=== PATIENT | female | born 1940 | race Caucasian/White ===

== ENCOUNTER 2016-07-11 05:15 | Emergency (ER) | payer MEDICARE ==
[~2016-07-11] VITALS: Ht 147.3 cm; Wt 33.0 kg
[~2016-07-11 05:15] MED LIST: DIGO0.25 PO; HYDR-3533 PO; HYDR12.56 PO; LEVO.1 PO; Lortab; OXYB5TAB10 PO; VIST25CA PO
[2016-07-11 05:19] VITALS: BP 180/79; PULSE 137; RESP 20; TEMP 97.5; O2SAT 99
[2016-07-11 06:03] LABS: AUTOMATED NEUTROPHIL # 4.4 TH/MM3 (1.8-7.7); BASOPHIL # 0.1 TH/MM3 (0-0.2); BASOPHIL % 1.7 % (0.0-2.0); EOSINOPHIL # 0.7 TH/MM3 (0-0.4); EOSINOPHIL % 9.2 % (0.0-4.0); HEMATOCRIT 38.8 % (35.0-46.0); LYMPH % 16.9 % (9.0-44.0); LYMPHOCYTE # 1.3 TH/MM3 (1.0-4.8); MEAN CELL VOLUME 90.6 FL (80.0-100.0); MEAN CORPUSCULAR HEMOGLOBIN 30.5 PG (27.0-34.0); MEAN CORPUSCULAR HGB CONC 33.7 % (32.0-36.0); MONO % 15.9 % (0.0-8.0); NEUT % 56.3 % (16.0-70.0); PLATELET COUNT 433 TH/MM3 (150-450); RED BLOOD COUNT 4.28 MIL/MM3 (4.00-5.30); RED CELL DISTRIBUTION WIDTH 15.9 % (11.6-17.2); WHITE BLOOD COUNT 7.9 TH/MM3 (4.0-11.0)
[2016-07-11 06:05] LABS: HEMO FLAGS AUTO DIFF
[2016-07-11 06:12] LABS: APTT (PATIENT) 25.8 SEC (24.3-30.1); PROTHROMBIN TIME - PATIENT 10.5 SEC (9.8-11.6)
[2016-07-11] MEDS ORDERED: EDOX1TAB2 PO (06:12)
[2016-07-11] MEDS ORDERED: CARV3.125 PO (06:12)
[2016-07-11] MEDS ORDERED: ACETAMINOPHEN/HYDROcodone 325 MG/5 MG TAB PO ONE (06:15)
[2016-07-11 06:18] LABS: BICARBONATE 28.5 MEQ/L (21.0-32.0)
--- NOTE | 2016-07-11 06:20 | PD ---
HPI Chief Complaint: Pain: Acute or Chronic Time Seen by Provider: 05:28 Travel History International Travel<30 days: No Contact w/Intl Traveler<30days: No Traveled to known affect area: No History of Present Illness HPI 76yo F with PMH of bladder CA presents to the ED with c/o bilateral leg pain s/ p scratching them today. Pt has dried skin and it was itchy and she woke up and scratched it and now it is hurting her. She states she has had this before. Pt states she is always sob. Denies any chest pain, fever, n/v, abdominal pain, focal weakness or numbness. PFSH Past Medical History Arthritis: Yes Autoimmune Disease: No Anxiety: Yes Depression: Yes Heart Rhythm Problems: Yes Cancer: Yes (SKIN, bladder, ) Cardiovascular Problems: Yes (AFIB) High Cholesterol: Yes Chemotherapy: No Chest Pain: No Congestive Heart Failure: No Cerebrovascular Accident: No Diabetes: No Diminished Hearing: No Endocrine: Yes Gastrointestinal Disorders: Yes (HX OBSTR.) GERD: No Genitourinary: Yes (HEMATURIA (DENIES CANCER)) Headaches: Yes Hepatitis: No Hiatal Hernia: No Hypertension: Yes Immune Disorder: No Musculoskeletal: Yes (ARTHRITIS) Neurologic: Yes (LEFT FOOT DROP (ANKLE NERVE DAMAGE)) Psychiatric: Yes (ANXIETY) Reproductive: No Respiratory: No Migraines: No Radiation Therapy: No Seizures: No Thyroid Disease: Yes Ulcer: No ?: Not Menopausal: Yes Past Surgical History Abdominal Surgery: Yes (SPLENECTOMY) AICD: No Cardiac Surgery: No Ear Surgery: No Endocrine Surgery: No Eye Surgery: Yes (MICHELLE. 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) Reported Meds & Prescriptions Reported Meds & Active Scripts Active Tylenol-Codeine #3 (Acetaminophen-Codeine) 300-30 mg Tab 1 Tab PO Q6HR PRN Reported Savaysa (Edoxaban) 30 Mg Tab 30 Mg PO DAILY Coreg (Carvedilol) 3.125 Mg Tab 3.125 Mg PO BID Digoxin 0.25 Mg Tab 0.25 Mg PO DAILY Synthroid (Levothyroxine Sodium) 100 Mcg Tab 100 Mcg PO DAILY Lortab (Hydrocodone-Acetaminophen) 5-325 Mg Tab 1 Tab PO Q6H PRN Ditropan (Oxybutynin Chloride) 5 Mg Tab 5 Mg PO BID Review of Systems Except as stated in HPI: all other systems reviewed are Neg Physical Exam Narrative GENERAL: 76yo F flail elderly female. SKIN: Warm and dry. HEAD: Atraumatic. Normocephalic. EYES: Pupils equal and round. No scleral icterus. No injection or drainage. ENT: No nasal bleeding or discharge. Mucous membranes pink and moist. NECK: Trachea midline. No JVD. CARDIOVASCULAR: Afib fluctuating from 90s-130s. No murmur appreciated. RESPIRATORY: No accessory muscle use. Clear to auscultation. Breath sounds equal bilaterally. GASTROINTESTINAL: Abdomen soft, non-tender, nondistended. MUSCULOSKELETAL: Bilateral tib/fib. +Scaling rash that looks like lichenified eczema with excoriation. DP 2+ bilaterally. +TTP. NEUROLOGICAL: Awake and alert. No obvious cranial nerve deficits. Motor grossly within normal limits. Normal speech. Data Data Last Documented VS Vital Signs Date Time Temp Pulse Resp B/P Pulse Ox O2 Delivery O2 Flow Rate FiO2 07/11/16 12:22 97.8 81 17 132/71 98 07/11/16 10:29 Room Air Orders Electrocardiogram (07/11/16 ) Complete Blood Count With Diff (07/11/16 05:37) Basic Metabolic Panel (Bmp) (07/11/16 05:37) Prothrombin Time / Inr (Pt) (07/11/16 05:37) Act Partial Throm Time (Ptt) (07/11/16 05:37) Chest, Single Ap (07/11/16 ) Acetamin-Hydrocod 325-5 Mg (Sims 5-325 (07/11/16 06:15) Digoxin (07/11/16 07:12) Thyroid Stimulating Hormone (07/11/16 07:13) Diltiazem Inj (Cardizem Inj) (07/11/16 07:15) Morphine Inj (Morphine Inj) (07/11/16 07:15) Labs Laboratory Tests Test 07/11/16 07/11/16 07/11/16 05:30 07:40 11:24 White Blood Count 7.9 TH/MM3 Red Blood Count 4.28 MIL/MM3 Hemoglobin 13.1 GM/DL Hematocrit 38.8 % Mean Corpuscular Volume 90.6 FL Mean Corpuscular Hemoglobin 30.5 PG Mean Corpuscular Hemoglobin 33.7 % Concent Red Cell Distribution Width 15.9 % Platelet Count 433 TH/MM3 Mean Platelet Volume 7.7 FL Neutrophils (%) (Auto) 56.3 % Lymphocytes (%) (Auto) 16.9 % Monocytes (%) (Auto) 15.9 % Eosinophils (%) (Auto) 9.2 % Basophils (%) (Auto) 1.7 % Neutrophils # (Auto) 4.4 TH/MM3 Lymphocytes # (Auto) 1.3 TH/MM3 Monocytes # (Auto) 1.3 TH/MM3 Eosinophils # (Auto) 0.7 TH/MM3 Basophils # (Auto) 0.1 TH/MM3 CBC Comment AUTO DIFF Differential Total Cells 100 Counted Neutrophils % (Manual) 56 % Band Neutrophils % 2 % Lymphocytes % 22 % Monocytes % 11 % Eosinophils % 8 % Basophils % 1 % Neutrophils # (Manual) 4.6 TH/MM3 Differential Comment FINAL DIFF MANUAL Platelet Estimate NORMAL Platelet Morphology Comment NORMAL Red Cell Morphology Comment NORMAL Prothrombin Time 10.5 SEC Prothromb Time International 1.0 RATIO Ratio Activated Partial 25.8 SEC Thromboplast Time Sodium Level 137 MEQ/L Potassium Level 4.5 MEQ/L Chloride Level 104 MEQ/L Carbon Dioxide Level 28.5 MEQ/L Anion Gap 5 MEQ/L Blood Urea Nitrogen 10 MG/DL Creatinine 0.72 MG/DL Estimat Glomerular Filtration 79 ML/MIN Rate Random Glucose 98 MG/DL Calcium Level 8.6 MG/DL Digoxin Level 0.8 NG/ML Thyroid Stimulating Hormone 0.491 uIU/ML 3rd Gen [facility] Medical Decision Making Medical Screen Exam Complete: Yes Emergency Medical Condition: Yes Interpretation(s) EKG: Afib at 95bpm. LAD. ST depression II, V4-V6. Differential Diagnosis Superinfection of skin from scratching vs. lichenification vs. cellulitis Narrative Course 76yo F here with bilateral leg pain s/p scratching it this morning. States it is very itchy. Pt initially in afib RVR in the 130s-150s but as we place the EKG leads on the patient, HR went to the 90s so I did not give any medication. Denies any chest pain. Pt given lortab but did not resolve pain. Morphine 2mg IV ordered. Labs reviewed, no leukocytosis. BMP wnl. CXR showed cardiomegaly and findings of vascular congestion without overt failure. On reevaluation, pt found to be again in afib RVR in the 130s. Cardizem 10mg IV was ordered. Sign out to next team for further evaluation. Scripts Acetaminophen-Codeine (Tylenol-Codeine #3)300-30 mg Tab1 Tab PO Q6HR PRN (PAIN SCALE 1 TO 10) #20 TAB Prov:Brian Spaulding MD 07/11/16 Lisa Rico DO Jul 11, 2016 06:20
[2016-07-11 06:22] LABS: POTASSIUM 4.5 MEQ/L (3.5-5.1)
[2016-07-11 06:41] LABS: BANDS 2 % (0-6); BASOPHILS 1 % (0-2); EOSINOPHILS 8 % (0-4); NEUTROPHIL # MANUAL DIFF 4.6 TH/MM3 (1.8-7.7); POLYS (SEG NEUTROPHILS) 56 % (16-70); WBC DIFF SAMPLE 100
[2016-07-11 06:43] LABS: PLATELET ESTIMATE SMEAR NORMAL (NORMAL); PLATELET MORPHOLOGY NORMAL (NORMAL); SCAN/DIFF FINAL DIFF MANUAL
--- NOTE | 2016-07-11 06:51 | RADRPT ---
EXAM DATE/TIME: 07/11/2016 06:19 [facility] COMPARISON: CHEST SINGLE AP, October 31, 2015, 12:39. INDICATIONS : Shortness of breath. MEDICAL HISTORY : Hypertension. Cardiovascular disease. SURGICAL HISTORY : None. ENCOUNTER: Initial ACUITY: 1 day PAIN SCORE: 0/10 LOCATION: Bilateral chest FINDINGS: The cardiac silhouette is enlarged in transverse diameter. There is prominence of the central pulmona ry vasculature with indistinct vascular margins compatible with vascular congestion but no evidence o f overt failure. No pleural effusions are identified. There is prominence of the aortic knob is with calcification characteristic of atherosclerotic vascular disease. CONCLUSION: 1. Cardiomegaly and findings of vascular congestion without overt failure. Tani Mosley MD on July 11, 2016 at 6:50 Board Certified Radiologist. This report was verified electronically.
[2016-07-11] MEDS ORDERED: DILTIAZEM HCL 25 MG/5 ML VIAL IV ONE (07:15)
[2016-07-11] MEDS ORDERED: MORPHINE SULFATE 4 MG/ML INJ IV PUSH ONE (07:15)
[2016-07-11 07:25] VITALS: BP 141/65; PULSE 108; RESP 18; TEMP 97.8; O2SAT 98
[2016-07-11 08:37] VITALS: BP 132/61; PULSE 80; RESP 18; O2SAT 98
[2016-07-11 10:29] VITALS: BP 153/67; PULSE 86; RESP 18; O2SAT 97
--- NOTE | 2016-07-11 11:10 | PD ---
Physical Exam Narrative Patient was seen by ED physician and signed out to me. Data Data Last Documented VS Vital Signs Date Time Temp Pulse Resp B/P Pulse Ox O2 Delivery O2 Flow Rate FiO2 07/11/16 10:29 86 18 153/67 97 Room Air 07/11/16 07:25 97.8 Orders Electrocardiogram (07/11/16 ) Complete Blood Count With Diff (07/11/16 05:37) Basic Metabolic Panel (Bmp) (07/11/16 05:37) Prothrombin Time / Inr (Pt) (07/11/16 05:37) Act Partial Throm Time (Ptt) (07/11/16 05:37) Chest, Single Ap (07/11/16 ) Acetamin-Hydrocod 325-5 Mg ([place] 5-325 (07/11/16 06:15) Digoxin (07/11/16 07:12) Thyroid Stimulating Hormone (07/11/16 07:13) Diltiazem Inj (Cardizem Inj) (07/11/16 07:15) Morphine Inj (Morphine Inj) (07/11/16 07:15) Labs Laboratory Tests Test 07/11/16 07/11/16 05:30 07:40 White Blood Count 7.9 TH/MM3 Red Blood Count 4.28 MIL/MM3 Hemoglobin 13.1 GM/DL Hematocrit 38.8 % Mean Corpuscular Volume 90.6 FL Mean Corpuscular Hemoglobin 30.5 PG Mean Corpuscular Hemoglobin 33.7 % Concent Red Cell Distribution Width 15.9 % Platelet Count 433 TH/MM3 Mean Platelet Volume 7.7 FL Neutrophils (%) (Auto) 56.3 % Lymphocytes (%) (Auto) 16.9 % Monocytes (%) (Auto) 15.9 % Eosinophils (%) (Auto) 9.2 % Basophils (%) (Auto) 1.7 % Neutrophils # (Auto) 4.4 TH/MM3 Lymphocytes # (Auto) 1.3 TH/MM3 Monocytes # (Auto) 1.3 TH/MM3 Eosinophils # (Auto) 0.7 TH/MM3 Basophils # (Auto) 0.1 TH/MM3 CBC Comment AUTO DIFF Differential Total Cells 100 Counted Neutrophils % (Manual) 56 % Band Neutrophils % 2 % Lymphocytes % 22 % Monocytes % 11 % Eosinophils % 8 % Basophils % 1 % Neutrophils # (Manual) 4.6 TH/MM3 Differential Comment FINAL DIFF MANUAL Platelet Estimate NORMAL Platelet Morphology Comment NORMAL Red Cell Morphology Comment NORMAL Prothrombin Time 10.5 SEC Prothromb Time International 1.0 RATIO Ratio Activated Partial 25.8 SEC Thromboplast Time Sodium Level 137 MEQ/L Potassium Level 4.5 MEQ/L Chloride Level 104 MEQ/L Carbon Dioxide Level 28.5 MEQ/L Anion Gap 5 MEQ/L Blood Urea Nitrogen 10 MG/DL Creatinine 0.72 MG/DL Estimat Glomerular Filtration 79 ML/MIN Rate Random Glucose 98 MG/DL Calcium Level 8.6 MG/DL Digoxin Level 0.8 NG/ML [facility] Supervised Visit with HOWARD: No Interpretation(s) EKG show atrial fibrillation with rate 95. Last Impressions Chest X-Ray 07/11/16 0000 Signed Impressions: Service Date/Time: Monday, July 11, 2016 06:19 - CONCLUSION: 1. Cardiomegaly and findings of vascular congestion without overt failure. Tani Mosley MD 11:05 AM. CBC within normal limit. Normal differential. BMP within normal limit. Digoxin 0.8. Narrative Course Patient's heart rate running between upper 90s to 130s. Patient has history of atrial fibrillation on digoxin and carvedilol. Patient also on Edoxaban. Cardizem 10 mg IV given. Patient's heart rate in the 70s subsequently. I spoke with Dr. aFy, her traffic agent. Advised increase carvedilol to 6.25 mg twice a day. Follow-up with Dr. Fay in the office. Diagnosis Primary Impression: Dermatitis of lower extremity Additional Impression: Atrial fibrillation with RVR Patient Instructions: General Instructions Additional Instruction: Take medications as directed. Follow-up with personal physician. Follow with traffic agent Dr. Fay as directed. Return if worse. Follow-up with regional account manager for rash of the lower extremity. Med/Other Pt SpecificInfo: Prescription(s) given Scripts Acetaminophen-Codeine (Tylenol-Codeine #3)300-30 mg Tab1 Tab PO Q6HR PRN (PAIN SCALE 1 TO 10) #20 TAB Prov:Brian Spaulding MD 07/11/16 Disposition: 01 DISCHARGE HOME Condition: Stable Brian Spaulding MD Jul 11, 2016 11:10
[2016-07-11] MEDS ORDERED: TYLETAB34 PO (11:32)
[2016-07-11 12:22] VITALS: BP 132/71; TEMP 97.8
--- NOTE | 2016-07-11 17:26 | EKG ---
Date Performed: 07/11/2016 Time Performed: 05:40:51 PTAGE: 76 years EKG: ATRIAL FIBRILLATION MARKED LEFT AXIS DEVIATION MODERATE ST DEPRESSION ABNORMAL ECG PREVIOUS TRACING : 07/11/2016 05.40 Atrial fibrillation is new since prior tracing. Clinical co rrelation recommended. DOCTOR: Brennon Horne Interpretating Date/Time 07/11/2016 17:25:06
[2016-10-15] MEDS ORDERED: WARF-23 PO (13:19)
[2016-10-15] MEDS ORDERED: BACT800T5 PO (13:46)
== END 2016-07-11 12:22 | disposition home or self-care (01) ==
LOC: NEPC 05:15
DX: L30.9 Dermatitis, unspecified (principal); I48.91 Unspecified atrial fibrillation; I51.7 Cardiomegaly; I10 Essential (primary) hypertension; E07.9 Disorder of thyroid, unspecified; F17.210 Nicotine dependence, cigarettes, uncomplicated; Z85.51 Personal history of malignant neoplasm of bladder
CPT/HCPCS: 71010; 80048; 80162; 84443; 85007; 85027; 85610; 85730; 93005; 96374; 96375; 99284; J2270

== ENCOUNTER 2016-07-31 11:02 | Inpatient (IN) | payer MEDICARE ==
[2016-07-31] VITALS (16 sets, daily range): BP systolic 152–196; BP diastolic 65–89; PULSE 32–72; RESP 12–25; TEMP 97.1–97.4; O2SAT 97–100
[~2016-07-31] VITALS: Ht 147.3 cm; Wt 42.0 kg
[~2016-07-31 11:02] MED LIST changes: +CARV3.125 PO; +EDOX1TAB2 PO; -HYDR12.56 PO; -Lortab; +TYLETAB34 PO; -VIST25CA PO
[2016-07-31] MEDS ORDERED: ASPIRIN 81 MG CHEW TAB PO ONE (11:15)
[2016-07-31] MEDS ORDERED: SODIUM CHLORIDE 0.9% FLUSH 5 ML FLUSH IVF PRN (11:15)
--- NOTE | 2016-07-31 11:27 | PD ---
HPI . Chest pain Chief Complaint: Cardiac Complaint Time Seen by Provider: 11:07 Travel History International Travel<30 days: No Contact w/Intl Traveler<30days: No Traveled to known affect area: No History of Present Illness HPI History is obtained from the medics. Patient presents to us via [facility] with chest pain. Medics report bradycardia. They gave her atropine. They also attempted transcutaneous pacing. They premedicated her with Ativan prior to pacing. She did not tolerate the pacing therefore that was aborted. However, Her heart rate has been around 60. Blood pressure has been stable. The Ativan did cause a decreased mental status. They report supporting her respirations with bag valve mask. However, she did not tolerate that either. This patient is on digoxin for atrial fibrillation. PFSH Past Medical History Arthritis: Yes Autoimmune Disease: No Anxiety: Yes Depression: Yes Heart Rhythm Problems: Yes Cancer: Yes (SKIN, bladder, ) Cardiovascular Problems: Yes (AFIB) High Cholesterol: Yes Chemotherapy: No Chest Pain: No Congestive Heart Failure: No Cerebrovascular Accident: No Diabetes: No Diminished Hearing: No Endocrine: Yes Gastrointestinal Disorders: Yes (HX OBSTR.) GERD: No Genitourinary: Yes (HEMATURIA) Headaches: Yes Hepatitis: No Hiatal Hernia: No Hypertension: Yes Immune Disorder: No Musculoskeletal: Yes (ARTHRITIS) Neurologic: Yes (LEFT FOOT DROP (ANKLE NERVE DAMAGE)) Psychiatric: Yes (ANXIETY) Reproductive: No Respiratory: No Migraines: No Radiation Therapy: No Seizures: No Thyroid Disease: Yes Ulcer: No Menopausal: Yes Past Surgical History Abdominal Surgery: Yes (SPLENECTOMY) AICD: No Cardiac Surgery: No Ear Surgery: No Endocrine Surgery: No Eye Surgery: Yes (MICHELLE. 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) Reported Meds & Prescriptions Reported Meds & Active Scripts Active Reported Carvedilol 6.25 Mg Tab 6.25 Mg PO BID Savaysa (Edoxaban) 30 Mg Tab 30 Mg PO DAILY Digoxin 0.25 Mg Tab 0.25 Mg PO DAILY Synthroid (Levothyroxine Sodium) 100 Mcg Tab 100 Mcg PO DAILY Lortab (Hydrocodone-Acetaminophen) 5-325 Mg Tab 1 Tab PO Q6H PRN Ditropan (Oxybutynin Chloride) 5 Mg Tab 5 Mg PO BID Review of Systems ROS Limitations: Altered Mental Status Except as stated in HPI: all other systems reviewed are Neg Cardiovascular: Positive: Chest Pain or Discomfort Physical Exam Narrative GENERAL: Very thin, chronically ill-appearing woman. SKIN: Warm and dry. Leathery skin of the lower extremities. She has a scar consistent with a previous skin graft from her left lateral thigh. HEAD: Atraumatic. Normocephalic. EYES: Pupils equal and round. Extraocular movements are intact. ENT: No nasal bleeding or discharge. Mucous membranes pink and moist. NECK: Trachea midline. Neck is supple. CARDIOVASCULAR: Regular rate and rhythm. Heart sounds were normal. RESPIRATORY: No accessory muscle use. Lungs are clear with good air movement throughout. GASTROINTESTINAL: Abdomen soft, non-tender, nondistended. MUSCULOSKELETAL: No obvious deformities. No edema. NEUROLOGICAL: Initial Birdie Coma Scale is 10. She will open her eyes to command. She has made some moaning sounds. She is moving all 4 extremities spontaneously. No obvious cranial nerve deficits. Motor grossly within normal limits. Incomprehensible speech. PSYCHIATRIC: Unable to evaluate. Data Data Last Documented VS Vital Signs Date Time Temp Pulse Resp B/P Pulse Ox O2 Delivery O2 Flow Rate FiO2 07/31/16 11:17 196/82 07/31/16 11:17 98 Nasal Cannula 2 07/31/16 11:07 97.1 70 12 Orders Electrocardiogram (07/31/16 11:07) Ckmb (Isoenzyme) Profile (07/31/16 11:07) Complete Blood Count With Diff (07/31/16 11:07) Comprehensive Metabolic Panel (07/31/16 11:07) Magnesium (Mg) (07/31/16 11:07) Prothrombin Time / Inr (Pt) (07/31/16 11:07) Act Partial Throm Time (Ptt) (07/31/16 11:07) Troponin I (07/31/16 11:07) Chest, Single Ap (07/31/16 11:07) Ecg Monitoring (07/31/16 11:07) Bilateral Bp Monitoring (07/31/16 11:07) Iv Access Insert/Monitor (07/31/16 11:07) Oximetry (07/31/16 11:07) Oxygen Administration (07/31/16 11:07) Aspirin Chew (Aspirin Chew) (07/31/16 11:15) Sodium Chloride 0.9% Flush (Ns Flush) (07/31/16 11:15) Digoxin (07/31/16 11:08) Digoxin Immune Mj Inj (Digibind Inj) (07/31/16 12:30) Labs Laboratory Tests Test 07/31/16 11:21 Sodium Level 126 MEQ/L Potassium Level 5.2 MEQ/L Chloride Level 92 MEQ/L Carbon Dioxide Level 25.4 MEQ/L Anion Gap 9 MEQ/L Blood Urea Nitrogen 20 MG/DL Creatinine 0.66 MG/DL Estimat Glomerular Filtration 87 ML/MIN Rate Random Glucose 109 MG/DL Calcium Level 8.3 MG/DL Magnesium Level 1.8 MG/DL Total Bilirubin 0.4 MG/DL Aspartate Amino Transf 27 U/L (AST/SGOT) Alanine Aminotransferase 18 U/L (ALT/SGPT) Alkaline Phosphatase 98 U/L Total Creatine Kinase 58 U/L Troponin I 0.09 NG/ML Total Protein 6.9 GM/DL Albumin 3.1 GM/DL Digoxin Level GREATER THAN 5.0 NG/ML MDM Medical Decision Making Medical Screen Exam Complete: Yes Emergency Medical Condition: Yes Medical Record Reviewed: Yes (medical history significant for bladder cancer, atrial fibrillation, previous DVT, hypothyroidism and tobacco abuse.) Interpretation(s) EKG shows a junctional rhythm with a rate of 65. She has ST segment elevation in aVR and ST segment depression in lead II and leads V3 through V6. This is new since her most recent EKG. Differential Diagnosis Differential diagnosis of altered mental status includes but is not limited to infection, electrolyte abnormality, neurological event, intoxication Narrative Course Patient presents to us via [facility] with the chief complaint of chest pain. She was found to be bradycardic area she was given Ativan 2 mg IV by them prior to attempting transcutaneous pacing. They report that her [place] Coma Scale score was 15 prior to the Ativan. She may be dig toxic. She does have ischemic changes on her EKG. Initial troponin is 0.09. Digoxin level is greater than 5. All of her other labs are currently pending. I have ordered Digibind. Physician Communication Physician Communication Dr. Baron will admit to the ICU Diagnosis Primary Impression: Digoxin toxicity Qualified Code: T46.0X1A - Digoxin toxicity, accidental or unintentional, initial encounter Additional Impressions: Bradycardia Elevated troponin Admitting Information Admitting Physician Requests: Admit Condition: Serious Emy Hamilton MD Jul 31, 2016 11:27
--- NOTE | 2016-07-31 11:38 | RADRPT ---
EXAM DATE/TIME: 07/31/2016 11:06 [facility] COMPARISON: CHEST SINGLE AP, July 11, 2016, 6:19. INDICATIONS : Patient has chest pain. MEDICAL HISTORY : None. SURGICAL HISTORY : None. ENCOUNTER: Initial ACUITY: 1 day PAIN SCORE: Non-responsive. LOCATION: chest FINDINGS: AP view of the chest demonstrates a normal-sized cardiac silhouette. Lungs are underinflated. There i s mild hazy opacity in the right lower lung zone. No pleural effusion or pneumothorax is visualized. The bones and soft tissues demonstrate no acute finding. CONCLUSION: Mild hazy airspace opacity in the right lower lung zone likely representing airspace consolidation. O therwise, no acute cardiopulmonary abnormality is appreciated. Pedro Lucas MD on July 31, 2016 at 11:35 Board Certified Radiologist. This report was verified electronically.
[2016-07-31 11:56] LABS: ALKALINE PHOSPHATASE 98 U/L (45-117); ALT (GPT) 18 U/L (10-53); ANION GAP 9 MEQ/L (5-15); AST (GOT) 27 U/L (15-37); BICARBONATE 25.4 MEQ/L (21.0-32.0); BLOOD UREA NITROGEN 20 MG/DL (7-18); CHLORIDE 92 MEQ/L (98-107); CREATINE KINASE 58 U/L (26-192); GLOMERULAR FILTRATION RATE 87 ML/MIN (>89); MAGNESIUM 1.8 MG/DL (1.5-2.5); POTASSIUM 5.2 MEQ/L (3.5-5.1); SODIUM (NA) 126 MEQ/L (136-145); TOTAL BILIRUBIN ADULT 0.4 MG/DL (0.2-1.0)
[2016-07-31] MEDS ORDERED: CARV6.252 PO (11:56)
[2016-07-31] MEDS ORDERED: DIGOXIN IMMUNE FAB INJ 400 MG in SODIUM CHLORIDE 0.9% INJ 50 ML IV ONE (12:30)
[2016-07-31] MEDS ORDERED: SODIUM CHLORIDE 0.9% IV ONE (12:53)
[2016-07-31] MEDS ORDERED: DIGOXIN IMMUNE FAB IV ONE (12:53)
[2016-07-31] MEDS ORDERED: ACETAMINOPHEN 325 MG TAB PO PRN (13:00)
[2016-07-31] MEDS ORDERED: MISCELLANEOUS NURSING INFORMATION XX SCH (13:00)
[2016-07-31] MEDS ORDERED: METOCLOPRAMIDE HCL 10 MG/2 ML VIAL IV PRN (13:00)
[2016-07-31] MEDS ORDERED: ONDANSETRON HCL 4 MG/2 ML VIAL IV PRN (13:00)
[2016-07-31] MEDS ORDERED: ENOXAPARIN SODIUM 30 MG/0.3 ML SYRINGE SQ SCH (13:00)
[2016-07-31] MEDS ORDERED: RESP: ALBUTEROL 2.5 MG/IPRATROPIUM 0.5 MG NEB (PRN) INH (13:00)
[2016-07-31] MEDS ORDERED: CHLORHEXIDINE GLUCONATE 2 % 1 PACK (2 CLOTHS) TOP PRN (13:00)
[2016-07-31] MEDS ORDERED: SODIUM CHLORIDE 0.9% FLUSH 5 ML FLUSH IV FLUSH PRN (13:00)
[2016-07-31] MEDS ORDERED: ATROPINE SULFATE 1 MG/ML VIAL IV PUSH ONE (13:15)
[2016-07-31] MEDS: SODIUM CHLOR 0.9% 1000 ML INJ 1,000 ML IV SCH (13:16)
[2016-07-31 13:54] LABS: AUTOMATED NEUTROPHIL # 12.6 TH/MM3 (1.8-7.7); BASOPHIL # 0.1 TH/MM3 (0-0.2); BASOPHIL % 0.4 % (0.0-2.0); EOSINOPHIL # 0.1 TH/MM3 (0-0.4); EOSINOPHIL % 0.6 % (0.0-4.0); LYMPH % 8.5 % (9.0-44.0); LYMPHOCYTE # 1.3 TH/MM3 (1.0-4.8); MEAN CELL VOLUME 90.1 FL (80.0-100.0); MEAN CORPUSCULAR HEMOGLOBIN 29.2 PG (27.0-34.0); MEAN CORPUSCULAR HGB CONC 32.4 % (32.0-36.0); MONO % 10.7 % (0.0-8.0); NEUT % 79.8 % (16.0-70.0); PLATELET COUNT 71 TH/MM3 (150-450); RED BLOOD COUNT 5.11 MIL/MM3 (4.00-5.30); RED CELL DISTRIBUTION WIDTH 15.5 % (11.6-17.2); WHITE BLOOD COUNT 15.8 TH/MM3 (4.0-11.0)
[2016-07-31 14:10] LABS: HEMO FLAGS AUTO DIFF
[2016-07-31 14:11] LABS: PLATELET ESTIMATE SMEAR LOW (NORMAL); PLATELET MORPHOLOGY ENLARGED (NORMAL); SCAN/DIFF AUTO DIFF CONFIRMED
[2016-07-31 15:45] LABS: APTT (PATIENT) 51.1 SEC (24.3-30.1); INTERNATIONAL NORMALIZED RATIO 1.8 RATIO; PROTHROMBIN TIME - PATIENT 19.9 SEC (9.8-11.6)
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
[2016-07-31] MEDS ORDERED: MIDAZOLAM HCL 5 MG/ML VIAL (1 ML) ONE (19:47)
[2016-07-31] MEDS: DOCUSATE SODIUM 100 MG CAP PO SCH (21:00)
--- NOTE | 2016-07-31 21:33 | RADRPT ---
EXAM DATE/TIME: 07/31/2016 21:21 [place] COMPARISON: No previous studies available for comparison. INDICATIONS : Evaluate pacemaker placement MEDICAL HISTORY : None. SURGICAL HISTORY : None. ENCOUNTER: Subsequent ACUITY: 1 day PAIN SCORE: 0/10 LOCATION: chest FINDINGS: Trace atelectasis seen at the bases. No pleural effusion. No pneumothorax. Sheaths containing a cardiac pacer lead enters the right internal jugular vein. The lead tip is in th e expected region of the pulmonary outflow tract. CONCLUSION: Temporary right IJ transvenous cardiac pacer lead, tip in the expected region of the pulmonary outflo w tract. No pneumothorax or other acute complication seen. Trace bibasilar atelectasis noted.. Pedro Osullivan MD on July 31, 2016 at 21:29 Board Certified Radiologist. This report was verified electronically.
--- NOTE | 2016-07-31 21:53 | PD.PROCEDR ---
Procedure Note Procedure DATE: 07/31/2016 Insertion procedure for the TVP catheter: Right internal jugular vein. Ultrasound-guided INDICATION: Digitoxicity/bradycardia CONSENT Informed consent for procedure was obtained from the patient. DESCRIPTION OF THE PROCEDURE The patient was placed in supine position. The skin was cleansed with Chloraprep. Additional barrier precautions included large sterile drape, sterile gloves, sterile gown, face mask, and hat. 1 % lidocaine was used for local anesthesia. Under direct ultrasound guidance and on initial attempt, the vein was accessed with an introducer needle. The guide wire was advanced and the tract was dilated. Using Seldinger technique a Cordis catheter was advanced to a depth of 11.5 centimeters. The guide wire was removed. The port had good return of dark venous blood and flushed easily with saline. The central line was secured with 2.0 silk. Prior to insertion, the pulse generator was checked. The right was set at 90 per minute. Milliamperage was 20 mA. Sensitivity was 2 mV. The balloontipped pacing catheter was inflated to ensure proper with 1.5 cc. The plastic protective sheath inserted probably over the pacing catheter. The balloontipped catheter was inserted through the introducer and advanced to 20 cm. The balloon was then inflated and the bridging cable was inserted into the ventricular socket on the post intubation. After multiple times, EKG showed ventricular capture at around 38 cm. Once Was obtainable from the catheter was retreated a further 1.2 cm. Catheter was secured and all connections were placed in a secure region. The plastic protective cover sheet cover the external portion the pacing catheter and covered with Tegaderm. Sutured catheter at 38 cm. ESTIMATED BLOOD LOSS: Minimal COMPLICATIONS: No apparent complications. STAT chest x-ray revealed no pneumothorax and adequate positioning of pacing wires. Kain Jurado MD Jul 31, 2016 21:53
[2016-07-31] MEDS: FAMOTIDINE 20 MG/2 ML VIAL IV PUSH SCH (22:42)
[2016-07-31] MEDS: CHLORHEXIDINE GLUCONATE 2 % 1 PACK (2 CLOTHS) TOP SCH (22:42)
[2016-07-31] MEDS: OXYBUTYNIN CHLORIDE 5 MG TAB PO SCH (22:42)
[2016-07-31] MEDS: SODIUM CHLORIDE 0.9% FLUSH 5 ML FLUSH IV FLUSH SCH (22:42)
[2016-07-31] MEDS ORDERED: EPINEPHrine HCL (1:10,000) 1 MG/10 ML SYRINGE IV ONE (23:45)
[2016-08-01] VITALS (16 sets, daily range): BP systolic 94–157; BP diastolic 50–87; PULSE 29–151; RESP 21–30; TEMP 97.8–98.7; O2SAT 93–98
[2016-08-01] MEDS: SODIUM CHLOR 0.9% 1000 ML INJ 1,000 ML IV SCH ×2 (00:44→21:23)
[2016-08-01] MEDS ORDERED: EPINEPHrine HCL (1:10,000) 1 MG/10 ML SYRINGE IV PRN (00:45)
[2016-08-01] MEDS: LEVOTHYROXINE SODIUM 100 MCG TAB PO SCH (05:00)
[2016-08-01 05:49] LABS: AUTOMATED NEUTROPHIL # 10.5 TH/MM3 (1.8-7.7); BASOPHIL # 0.1 TH/MM3 (0-0.2); BASOPHIL % 0.7 % (0.0-2.0); EOSINOPHIL # 0.2 TH/MM3 (0-0.4); EOSINOPHIL % 1.2 % (0.0-4.0); HEMATOCRIT 39.8 % (35.0-46.0); LYMPH % 7.3 % (9.0-44.0); MEAN CELL VOLUME 89.5 FL (80.0-100.0); MEAN CORPUSCULAR HEMOGLOBIN 29.9 PG (27.0-34.0); MEAN CORPUSCULAR HGB CONC 33.4 % (32.0-36.0); MONO % 15.2 % (0.0-8.0); NEUT % 75.6 % (16.0-70.0); PLATELET COUNT 52 TH/MM3 (150-450); RED BLOOD COUNT 4.44 MIL/MM3 (4.00-5.30); RED CELL DISTRIBUTION WIDTH 15.7 % (11.6-17.2); WHITE BLOOD COUNT 13.9 TH/MM3 (4.0-11.0)
[2016-08-01 06:06] LABS: HEMO FLAGS AUTO DIFF
[2016-08-01 06:47] LABS: ALKALINE PHOSPHATASE 85 U/L (45-117); ALT (GPT) 18 U/L (10-53); ANION GAP 11 MEQ/L (5-15); AST (GOT) 24 U/L (15-37); BICARBONATE 23.8 MEQ/L (21.0-32.0); BLOOD UREA NITROGEN 15 MG/DL (7-18); CHLORIDE 96 MEQ/L (98-107); GLOMERULAR FILTRATION RATE 150 ML/MIN (>89); MAGNESIUM 1.9 MG/DL (1.5-2.5); POTASSIUM 3.9 MEQ/L (3.5-5.1); SODIUM (NA) 131 MEQ/L (136-145); TOTAL BILIRUBIN ADULT 0.4 MG/DL (0.2-1.0)
[2016-08-01 07:03] LABS: ACANTHOCYTES OCC (NORMAL); KERATOCYTES OCC (NORMAL)
[2016-08-01 07:04] LABS: PLATELET ESTIMATE SMEAR LOW (NORMAL)
[2016-08-01 07:05] LABS: SCAN/DIFF AUTO DIFF CONFIRMED
[2016-08-01 07:06] LABS: PLATELET MORPHOLOGY NORMAL (NORMAL)
[2016-08-01] MEDS ORDERED: DOPamine INJ PREMIX 500 ML ONE (07:13)
[2016-08-01] MEDS ORDERED: ATROPINE SULFATE 1 MG/10 ML SYRINGE ONE (07:47)
[2016-08-01] MEDS ORDERED: MORPHINE SULFATE 8 MG/ML INJ ONE (07:54)
[2016-08-01] MEDS: MORPHINE SULFATE 4 MG/ML INJ IV PUSH PRN ×2 (08:10→08:45)
[2016-08-01] MEDS ORDERED: DIGOXIN IMMUNE FAB IV ONE (08:15)
[2016-08-01] MEDS ORDERED: SODIUM CHLORIDE 0.9% IV ONE (08:15)
--- NOTE | 2016-08-01 08:58 | PD.CONS ---
HPI Service Cardiology Consult Requested By ICU Reason for Consult Digoxin Toxicity Primary Care Physician Rosario Cristina M.D. History of Present Illness 76 y/o F with significant past medical history of high-grade bladder cancer for which she has declined treatment, squamous cell carcinoma of both legs for removal, prior splenectomy, urinary incontinence, hypothyroid, atrial fibrillation and LV systolic dysfunction, that presented to the emergency room via EMS with atrial fibrillation with slow ventricular response in the setting of digoxin toxicity. According to reports she was unresponsive for some time. She reports chest and abdominal pain. In the ER she was found with a Digoxin level of more than 5, elevated WBC, thrombocytopenia, hyponatremia, hyperkalemia and mildly elevated troponin's. Patient was admitted to the ICU. She was given digoxin antibodies, atropine, dopamine and a intravenous temporary pacemaker, which she pulled out overnight. Currently she remains hemodynamically stable, somewhat confused complaints of abd and chest pains, telemetry is showing atrial fibrillation with RVR. Patient is a DNR/DNI. Review of Systems ROS Limitations: Poor Historian Consitutional: DENIES: Fatigue, Fever, Chills, Weight gain, Weight loss Eyes: DENIES: Amaurosis Fugax, Change in vision HEENT: DENIES: Lightheadedness, Change in hearing Respiratory: DENIES: See HPI, Cough, Snoring, Shortness of breath, Wheezing, Sputum production Cardiovascular: COMPLAINS OF: See HPI Gastrointestinal: DENIES: Nausea, Vomiting, Change in bowel habits, Reflux, Bloody stools, Melena Genitourinary: DENIES: Urinary incontinence, Difficulty voiding Integumentary: DENIES: Rash Neurologic: DENIES: Tingling or numbness, Memory problems, Poor Balance, Stroke symptoms Musculoskeletal: DENIES: Joint pain, Muscle pain, Limited range of motion, Back pain Psychiatric: DENIES: Anxiety, Depression, Sleep disturbances Hematologic: DENIES: Bruising tendencies, Bleeding tendencies Endocrine: DENIES: Weight gain, Weight loss, Thyroid disease Past Family Social History Allergies: Coded Allergies: *MDRO Multi-Drug Resistant Organism (Verified Adverse Reaction, Unknown, ) 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/16) Past Medical History Bladder cancer for which she has declined treatment, Squamous cell carcinoma of both legs for removal, Splenectomy, Urinary incontinence, Hypothyroidism, Atrial fibrillation LV systolic dysfunction Reported Medications Reported Meds & Active Scripts Active Reported Carvedilol 6.25 Mg Tab 6.25 Mg PO BID Savaysa (Edoxaban) 30 Mg Tab 30 Mg PO DAILY Digoxin 0.25 Mg Tab 0.25 Mg PO DAILY Synthroid (Levothyroxine Sodium) 100 Mcg Tab 100 Mcg PO DAILY Lortab (Hydrocodone-Acetaminophen) 5-325 Mg Tab 1 Tab PO Q6H PRN Ditropan (Oxybutynin Chloride) 5 Mg Tab 5 Mg PO BID Active Ordered Medications Current Medications Medications (Trade) Dose Ordered Sig/Alisha Route Start Time Stop Time Status Last Admin (NS 1000 ml Inj) 1,000 ml @ 84 mls/hr [id number] IV 07/31/16 12:49 07/31/16 13:16 (NS Flush) 2 ml UNSCH PRN IV FLUSH 07/31/16 13:00 (NS Flush) 2 ml BID IV FLUSH 07/31/16 21:00 07/31/16 22:42 (Tylenol) 650 mg Q6H PRN PO 07/31/16 13:00 (Pepcid Inj) 20 mg Q12HR IV PUSH 07/31/16 21:00 07/31/16 22:42 (Zofran Inj) 4 mg Q6H PRN IV 07/31/16 13:00 (Reglan Inj) 10 mg Q6H PRN IV 07/31/16 13:00 (Colace) 100 mg BID PO 07/31/16 21:00 Miscellaneous Information 1 Q361D XX 07/31/16 13:00 (Chlorhexidine 2% Cloth) 3 pack Taper DAILY@04 TOP 08/01/16 04:00 07/28/17 03:59 07/31/16 22:42 (Chlorhexidine 2% Cloth) 3 pack UNSCH PRN TOP 07/31/16 13:00 (Savaysa) 30 mg DAILY PO 08/01/16 09:00 (Synthroid) 100 mcg DAILY@0600 PO 08/01/16 06:00 08/01/16 05:00 (Ditropan) 5 mg BID PO 07/31/16 21:00 07/31/16 22:42 (EPINEPHrine (1:10,000) INJ) 0.2 mg UNSCH PRN IV 08/01/16 00:45 Family History Noncontributory Physical Exam Vital Signs Vital Signs Date Time Temp Pulse Resp B/P Pulse Ox O2 Delivery O2 Flow Rate FiO2 08/01/16 06:00 151 08/01/16 04:00 35 08/01/16 04:00 98.4 35 30 157/69 95 08/01/16 02:00 44 08/01/16 00:00 48 08/01/16 00:00 98.0 48 24 146/87 98 07/31/16 22:00 72 07/31/16 21:02 100 Nasal Cannula 2.00 07/31/16 20:00 44 07/31/16 20:00 97.4 44 25 153/70 100 07/31/16 19:11 97.4 56 16 173/84 100 07/31/16 18:00 51 16 154/69 100 Nasal Cannula 2 07/31/16 17:00 56 14 153/70 98 Nasal Cannula 2 07/31/16 16:07 45 16 166/72 97 Nasal Cannula 2 07/31/16 15:00 42 14 159/66 100 Nasal Cannula 2 07/31/16 14:30 50 14 152/65 98 Nasal Cannula 2 07/31/16 13:42 68 07/31/16 13:35 32 07/31/16 13:30 38 16 176/89 100 Nasal Cannula 2 07/31/16 13:00 40 20 155/68 100 Nasal Cannula 2 07/31/16 12:30 48 20 177/77 100 Nasal Cannula 2 07/31/16 11:17 196/82 07/31/16 11:17 98 Nasal Cannula 2 07/31/16 11:17 98 Nasal Cannula 2 07/31/16 11:07 97.1 70 12 196/82 100 Physical Exam GENERAL: Mal-nourished, cachectic. SKIN: Warm and dry. HEAD: Normocephalic. EYES: No scleral icterus. No injection or drainage. NECK: Supple, trachea midline. No JVD or lymphadenopathy. CARDIOVASCULAR: Irr Irr without murmurs, gallops, or rubs. RESPIRATORY: Breath sounds equal bilaterally. No accessory muscle use. GASTROINTESTINAL: Abdomen soft, non-tender, nondistended. EXTREMITIES: No cyanosis, or edema. Laboratory Laboratory Tests Test 07/31/16 07/31/16 07/31/16 07/31/16 11:21 12:54 15:09 19:00 Sodium Level 126 Potassium Level 5.2 Chloride Level 92 Carbon Dioxide Level 25.4 Anion Gap 9 Blood Urea Nitrogen 20 Creatinine 0.66 Estimat Glomerular Filtration 87 Rate Random Glucose 109 Calcium Level 8.3 Magnesium Level 1.8 Total Bilirubin 0.4 Aspartate Amino Transf 27 (AST/SGOT) Alanine Aminotransferase 18 (ALT/SGPT) Alkaline Phosphatase 98 Total Creatine Kinase 58 Troponin I 0.09 Total Protein 6.9 Albumin 3.1 Digoxin Level GREATER THAN 5.0 White Blood Count 15.8 Red Blood Count 5.11 Hemoglobin 14.9 Hematocrit 46.0 Mean Corpuscular Volume 90.1 Mean Corpuscular Hemoglobin 29.2 Mean Corpuscular Hemoglobin 32.4 Concent Red Cell Distribution Width 15.5 Platelet Count 71 Mean Platelet Volume 9.0 Neutrophils (%) (Auto) 79.8 Lymphocytes (%) (Auto) 8.5 Monocytes (%) (Auto) 10.7 Eosinophils (%) (Auto) 0.6 Basophils (%) (Auto) 0.4 Neutrophils # (Auto) 12.6 Lymphocytes # (Auto) 1.3 Monocytes # (Auto) 1.7 Eosinophils # (Auto) 0.1 Basophils # (Auto) 0.1 CBC Comment AUTO DIFF Differential Comment AUTO DIFF CONFIRMED Platelet Estimate LOW Platelet Morphology Comment ENLARGED Prothrombin Time 19.9 Prothromb Time International 1.8 Ratio Activated Partial 51.1 Thromboplast Time Nasal Screen MRSA (PCR) NEGATIVE Test 08/01/16 05:09 White Blood Count 13.9 Red Blood Count 4.44 Hemoglobin 13.3 Hematocrit 39.8 Mean Corpuscular Volume 89.5 Mean Corpuscular Hemoglobin 29.9 Mean Corpuscular Hemoglobin 33.4 Concent Red Cell Distribution Width 15.7 Platelet Count 52 Mean Platelet Volume 9.5 Neutrophils (%) (Auto) 75.6 Lymphocytes (%) (Auto) 7.3 Monocytes (%) (Auto) 15.2 Eosinophils (%) (Auto) 1.2 Basophils (%) (Auto) 0.7 Neutrophils # (Auto) 10.5 Lymphocytes # (Auto) 1.0 Monocytes # (Auto) 2.1 Eosinophils # (Auto) 0.2 Basophils # (Auto) 0.1 CBC Comment AUTO DIFF Differential Comment AUTO DIFF CONFIRMED Platelet Estimate LOW Platelet Morphology Comment NORMAL Acanthocytes OCC Keratocytes OCC Sodium Level 131 Potassium Level 3.9 Chloride Level 96 Carbon Dioxide Level 23.8 Anion Gap 11 Blood Urea Nitrogen 15 Creatinine 0.41 Estimat Glomerular Filtration 150 Rate Random Glucose 69 Calcium Level 8.2 Phosphorus Level 2.1 Magnesium Level 1.9 Total Bilirubin 0.4 Aspartate Amino Transf 24 (AST/SGOT) Alanine Aminotransferase 18 (ALT/SGPT) Alkaline Phosphatase 85 Troponin I 0.11 Total Protein 6.3 Albumin 2.9 Digoxin Level GREATER THAN 5.0 Result Diagram: 08/01/16 0509 08/01/16 0509 Imaging Last Impressions Chest X-Ray 07/31/16 1107 Signed Impressions: Service Date/Time: , July 31, 2016 11:06 - CONCLUSION: Mild hazy airspace opacity in the right lower lung zone likely representing airspace consolidation. Otherwise, no acute cardiopulmonary abnormality is appreciated. Pedro Lucas MD Assessment and Plan Problem List: (1) Digoxin toxicity Assessment and Plan: 76 y/o F admitted with chest pains, confusion and slow afib in the setting of digoxin toxicity/poor PO intake. She remains afebrile, hemodynamically stable but critically ill. Telemetry shows episodes of atrial fibrillation with RVR at times mixed with slow ventricular response. Repeated digoxin level still elevated which is expected after receiving digoxin antibodies, however hyperkalemia has resolved. Patient is DNR/DNI. She has known hx of high-grade bladder cancer for which she has declined treatment, squamous cell carcinoma of both legs. She still complains of episodes of chest pain. EKG shows depression in the lateral leads. Last echo EF35%. No ischemic work up in [facility] hospital records. Given poor halfway prognosis and code status it will be most prudent to continue supportive care, NO AV blocking agents, continue telemetry monitoring, avoid electrolytes imbalances and consult palliative care. (2) Bradycardia (3) Atrial fibrillation with RVR (4) Elevated troponin Problem Qualifiers (1) Digoxin toxicity: Qualified Code: T46.0X1A - Digoxin toxicity, accidental or unintentional, initial encounter Alvarez Payton MD Aug 01, 2016 08:58
[2016-08-01] MEDS: FAMOTIDINE 20 MG/2 ML VIAL IV PUSH SCH ×2 (09:00→21:11)
[2016-08-01] MEDS: DOCUSATE SODIUM 100 MG CAP PO SCH ×2 (09:00→21:11)
[2016-08-01] MEDS: OXYBUTYNIN CHLORIDE 5 MG TAB PO SCH ×2 (09:00→21:11)
[2016-08-01] MEDS: EDOXABAN TOSYLATE 30 MG TAB PO SCH (09:00)
[2016-08-01] MEDS: SODIUM CHLORIDE 0.9% FLUSH 5 ML FLUSH IV FLUSH SCH ×2 (09:00→21:00)
--- NOTE | 2016-08-01 13:26 | HHI.CCPN ---
Subjective Remarks/Hospital Course 76-year-old female with history of atrial fibrillation on digoxin presents to us via [facility] with chest pain. EKG and lab results showed dig toxicity. Medics report bradycardia. They gave her atropine. They also attempted transcutaneous pacing. They premedicated her with Ativan prior to pacing. Patient is very lethargic and somnolent due to Ativan. Objective Vital Signs Date Time Temp Pulse Resp B/P Pulse Ox O2 Delivery O2 Flow Rate FiO2 08/01/16 12:10 54 08/01/16 12:00 98.3 24 108/61 93 07/31/16 21:02 Nasal Cannula 2.00 Intake and Output 07/31/16 07/31/16 08/01/16 08:00 16:00 00:00 Intake Total 754 ml Output Total 500 ml Balance 254 ml Result Diagram: 08/01/16 0509 08/01/16 0509 Objective Remarks GENERAL: Malnourished elderly woman lethargic due to Ativan SKIN: Warm and dry. HEAD: Normocephalic. EYES: No scleral icterus. No injection or drainage. NECK: Supple, trachea midline. No JVD or lymphadenopathy. CARDIOVASCULAR: Regular rate and rhythm without murmurs, gallops, or rubs. RESPIRATORY: Breath sounds equal bilaterally. No accessory muscle use. GASTROINTESTINAL: Abdomen soft, non-tender, nondistended. MUSCULOSKELETAL: No cyanosis, or edema. BACK: Nontender without obvious deformity. No CVA tenderness. EXTREMITIES: Nonfocal A/P Problem List: (1) Digoxin toxicity ICD Code: T46.0X1A Status: Acute (2) Bradycardia ICD Code: R00.1 Status: Acute (3) Hypothyroid ICD Code: E03.9 Status: Acute Assessment and Plan Bradycardia - Due to digoxin toxicity - Required some epinephrine last night - Digoxin antibodies administered - Transvenous pacemaker placed however patient removed - Continue telemetry - Supportive care - Isoproterenol if heart rate less than 30 Digoxin toxicity - Antibody administered - Monitor level daily - Still higher than 5 - Avoid digoxin in future Hyperkalemia - IV fluids - Monitor trend Hypothyroid - Home dose levothyroxine High-grade bladder cancer - Supportive care - Palliative care consult DVT GI prophylaxis - Heparin and Pepcid Level III Problem Qualifiers (1) Digoxin toxicity: Qualified Code: T46.0X1A - Digoxin toxicity, accidental or unintentional, initial encounter Av Baron MD Aug 01, 2016 13:26
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
--- NOTE | 2016-08-01 18:22 | PD.CONS ---
HPI Service [facility] Consult Requested By Primary Care Physician Rosario Cristina M.D. Diagnoses: (Senait Edwards) Past Family Social History Allergies: Coded Allergies: *MDRO Multi-Drug Resistant Organism (Verified Adverse Reaction, Unknown, ) 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/16) Physical Exam Vital Signs Vital Signs Date Time Temp Pulse Resp B/P Pulse Ox O2 Delivery O2 Flow Rate FiO2 08/01/16 16:26 98.7 47 24 116/58 94 08/01/16 16:25 52 08/01/16 14:00 41 08/01/16 12:10 54 08/01/16 12:00 98.3 54 24 108/61 93 08/01/16 11:20 95 21 08/01/16 10:18 51 08/01/16 08:00 98.7 29 24 94/50 93 08/01/16 06:00 151 08/01/16 04:00 35 08/01/16 04:00 98.4 35 30 157/69 95 08/01/16 02:00 44 08/01/16 00:00 48 08/01/16 00:00 98.0 48 24 146/87 98 07/31/16 22:00 72 07/31/16 21:02 100 Nasal Cannula 2.00 07/31/16 20:00 44 07/31/16 20:00 97.4 44 25 153/70 100 07/31/16 19:11 97.4 56 16 173/84 100 Physical Exam GENERAL: This is a well-nourished, well-developed patient, in no apparent distress. SKIN: No rashes, ecchymoses or lesions. Cool and dry. HEAD: Atraumatic. Normocephalic. No temporal or scalp tenderness. EYES: Pupils equal round and reactive. Extraocular motions intact. No scleral icterus. No injection or drainage. ENT: Nose without bleeding, purulent drainage or septal hematoma. Throat without erythema, tonsillar hypertrophy or exudate. Uvula midline. Airway patent. NECK: Trachea midline. No JVD or lymphadenopathy. Supple, nontender, no meningeal signs. CARDIOVASCULAR: Regular rate and rhythm without murmurs, gallops, or rubs. RESPIRATORY: Clear to auscultation. Breath sounds equal bilaterally. No wheezes , rales, or rhonchi. GASTROINTESTINAL: Abdomen soft, non-tender, nondistended. No hepato-splenomegaly , or palpable masses. No guarding. MUSCULOSKELETAL: Extremities without clubbing, cyanosis, or edema. No joint tenderness, effusion, or edema noted. No calf tenderness. Negative Homans sign bilaterally. NEUROLOGICAL: Awake and alert. Cranial nerves II through XII intact. Motor and sensory grossly within normal limits. Five out of 5 muscle strength in all muscle groups. Normal speech. Laboratory Laboratory Tests Test 07/31/16 08/01/16 19:00 05:09 Nasal Screen MRSA (PCR) NEGATIVE White Blood Count 13.9 Red Blood Count 4.44 Hemoglobin 13.3 Hematocrit 39.8 Mean Corpuscular Volume 89.5 Mean Corpuscular Hemoglobin 29.9 Mean Corpuscular Hemoglobin 33.4 Concent Red Cell Distribution Width 15.7 Platelet Count 52 Mean Platelet Volume 9.5 Neutrophils (%) (Auto) 75.6 Lymphocytes (%) (Auto) 7.3 Monocytes (%) (Auto) 15.2 Eosinophils (%) (Auto) 1.2 Basophils (%) (Auto) 0.7 Neutrophils # (Auto) 10.5 Lymphocytes # (Auto) 1.0 Monocytes # (Auto) 2.1 Eosinophils # (Auto) 0.2 Basophils # (Auto) 0.1 CBC Comment AUTO DIFF Differential Comment AUTO DIFF CONFIRMED Platelet Estimate LOW Platelet Morphology Comment NORMAL Acanthocytes OCC Keratocytes OCC Sodium Level 131 Potassium Level 3.9 Chloride Level 96 Carbon Dioxide Level 23.8 Anion Gap 11 Blood Urea Nitrogen 15 Creatinine 0.41 Estimat Glomerular Filtration 150 Rate Random Glucose 69 Calcium Level 8.2 Phosphorus Level 2.1 Magnesium Level 1.9 Total Bilirubin 0.4 Aspartate Amino Transf 24 (AST/SGOT) Alanine Aminotransferase 18 (ALT/SGPT) Alkaline Phosphatase 85 Troponin I 0.11 Total Protein 6.3 Albumin 2.9 Digoxin Level GREATER THAN 5.0 (Senait Edwards) Result Diagram: 08/01/16 0509 08/01/16 0509 A/P Assessment and Plan dictated, [id number] (Senait Edwards) Assessment and Plan seen and examined by myself,Dr Browne , on 08/01/16 Discussed with patient Discussed with hospice nurse The patient is being admitted to hospice, on comfort care Discussed with mid-level practitioner The exam, history, and the medical decision-making described in the above note were completed with the assistance of the mid-level provider. I reviewed the findings presented. I attest that I had a [id number] encounter with the patient on the same day, and personally performed and documented my assessment and findings in the medical record (Fady Browne MD) Senait Edwards Aug 01, 2016 18:22 Fady Browne MD Aug 02, 2016 14:08
--- NOTE | 2016-08-01 18:34 | EKG ---
Date Performed: 08/01/2016 Time Performed: 14:44:58 PTAGE: 76 years EKG: ATRIAL FIBRILLATION WITH SLOW VENTRICULAR RESPONSE LOW QRS VOLTAGE IN EXTREMITY LEADS INFER IOR MYOCARDIAL INFARCTION , PROBABLY OLD ANTEROSEPTAL MYOCARDIAL INFARCTION , OF INDETERMINATE AGE MO DERATE T-WAVE ABNORMALITY, CONSIDER LATERAL ISCHEMIA ABNORMAL ECG PREVIOUS TRACING : 08/01/2016 08.02 Compared to the previous tracing, now Afib with slow ventri cular response, ST/T wave changes are more extensive DOCTOR: Jose Christensen Interpretating Date/Time 08/01/2016 18:34:00
--- NOTE | 2016-08-01 18:55 | EKG ---
Date Performed: 08/01/2016 Time Performed: 08:02:26 PTAGE: 76 years EKG: ATRIAL FIBRILLATION SEPTAL MYOCARDIAL INFARCTION , OF INDETERMINATE AGE INFERIOR MYOCARDIAL INFARCTION , PROBABLY OLD LATERAL ST/T WAVE CHANGES ABNORMAL ECG PREVIOUS TRACING : 07/31/2016 13.44 Compared to the previous tracing, AFib was previously slow ventricular response with more extensive ST/T wave changes DOCTOR: Jose Christensen Interpretating Date/Time 08/01/2016 18:54:15
--- NOTE | 2016-08-01 19:26 | EKG ---
Date Performed: 08/01/2016 Time Performed: 01:34:36 PTAGE: 76 years EKG: Atrial fibrillation with slow ventricular response Prolonged QT interval Left axis deviatio n Possible anterior infarct - age undetermined Left ventricular hypertrophy Inferior/lateral ST-T ann nges may be due to hypertrophy and/or ischemia Low QRS voltages in limb leads Abnormal ECG PREVIOUS TRACING : 08/01/2016 01.27 Compared to prior tracing no significant change DOCTOR: Jose Christensen Interpretating Date/Time 08/01/2016 19:25:28
[2016-08-01] MEDS ORDERED: MORPHINE SULFATE 4 MG/ML INJ IV ONE (20:00)
--- NOTE | 2016-08-01 20:04 | EKG ---
Date Performed: 07/31/2016 Time Performed: 13:44:45 PTAGE: 76 years EKG: ATRIAL FIBRILLATION WITH SLOW VENTRICULAR RESPONSE MARKED LEFT AXIS DEVIATION LOW QRS VOLTA GE IN EXTREMITY LEADS PATTERN CONSISTENT WITH PULMONARY DISEASE INCOMPLETE RIGHT BUNDLE BRANCH BLOCK MODERATE ST DEPRESSION ABNORMAL QRS-T ANGLE ABNORMAL ECG PREVIOUS TRACING : 07/31/2016 10.10 Compared to prior tracing no significant change DOCTOR: Jose Christensen Interpretating Date/Time 08/01/2016 20:03:09
--- NOTE | 2016-08-01 20:21 | EKG ---
Date Performed: 07/31/2016 Time Performed: 10:10:08 PTAGE: 76 years EKG: ATRIAL FIBRILLATION MARKED LEFT AXIS DEVIATION ST DEPRESSION, CONSIDER SUBENDOCARDIAL INJUR Y ABNORMAL ECG INTERPRETATION BASED ON A DEFAULT AGE OF 40 YEARS Compared to the PREVIOUS TRACING from 07/11/16, ST/T waves changes are new DOCTOR: Jose Christensen Interpretating Date/Time 08/01/2016 20:20:42
[2016-08-01] MEDS: DEXT 5%-NACL 0.9% 1000 ML INJ 1,000 ML IV SCH (21:12)
[2016-08-02] VITALS (12 sets, daily range): BP systolic 128–152; BP diastolic 72–102; PULSE 36–107; RESP 18–24; TEMP 97.1–98.4; O2SAT 97–100
[2016-08-02] MEDS: MORPHINE SULFATE 4 MG/ML INJ IV PUSH PRN ×2 (01:29→17:19)
[2016-08-02] MEDS: LEVOTHYROXINE SODIUM 100 MCG TAB PO SCH (05:19)
[2016-08-02] MEDS: CHLORHEXIDINE GLUCONATE 2 % 1 PACK (2 CLOTHS) TOP SCH (05:20)
[2016-08-02] MEDS: DEXT 5%-NACL 0.9% 1000 ML INJ 1,000 ML IV SCH (05:20)
[2016-08-02 06:04] LABS: AUTOMATED NEUTROPHIL # 8.7 TH/MM3 (1.8-7.7); BASOPHIL % 0.2 % (0.0-2.0); EOSINOPHIL # 0.1 TH/MM3 (0-0.4); EOSINOPHIL % 0.4 % (0.0-4.0); LYMPH % 9.9 % (9.0-44.0); LYMPHOCYTE # 1.3 TH/MM3 (1.0-4.8); MEAN CELL VOLUME 88.7 FL (80.0-100.0); MEAN CORPUSCULAR HEMOGLOBIN 29.3 PG (27.0-34.0); MEAN CORPUSCULAR HGB CONC 33.1 % (32.0-36.0); MONO % 20.5 % (0.0-8.0); PLATELET COUNT 60 TH/MM3 (150-450); RED BLOOD COUNT 4.62 MIL/MM3 (4.00-5.30); WHITE BLOOD COUNT 12.6 TH/MM3 (4.0-11.0)
[2016-08-02 06:08] LABS: HEMO FLAGS AUTO DIFF
[2016-08-02 06:47] LABS: ALKALINE PHOSPHATASE 101 U/L (45-117); ALT (GPT) 22 U/L (10-53); ANION GAP 9 MEQ/L (5-15); AST (GOT) 50 U/L (15-37); BICARBONATE 22.7 MEQ/L (21.0-32.0); BLOOD UREA NITROGEN 22 MG/DL (7-18); CHLORIDE 101 MEQ/L (98-107); GLOMERULAR FILTRATION RATE 51 ML/MIN (>89); MAGNESIUM 1.9 MG/DL (1.5-2.5); POTASSIUM 4.1 MEQ/L (3.5-5.1); SODIUM (NA) 133 MEQ/L (136-145); TOTAL BILIRUBIN ADULT 0.3 MG/DL (0.2-1.0)
[2016-08-02] MEDS: EDOXABAN TOSYLATE 30 MG TAB PO SCH (08:38)
[2016-08-02] MEDS: FAMOTIDINE 20 MG/2 ML VIAL IV PUSH SCH ×2 (08:39→19:57)
[2016-08-02] MEDS: OXYBUTYNIN CHLORIDE 5 MG TAB PO SCH ×2 (08:40→19:58)
[2016-08-02] MEDS: DOCUSATE SODIUM 100 MG CAP PO SCH ×2 (08:40→19:58)
[2016-08-02] MEDS: SODIUM CHLORIDE 0.9% FLUSH 5 ML FLUSH IV FLUSH SCH ×2 (08:48→19:58)
[2016-08-02 10:05] LABS: BANDS 4 % (0-6); METAMYELOCYTES 1 % (0-1); NEUTROPHIL # MANUAL DIFF 9.8 TH/MM3 (1.8-7.7); POLYS (SEG NEUTROPHILS) 73 % (16-70); WBC DIFF SAMPLE 100
[2016-08-02 10:07] LABS: ACANTHOCYTES OCC (NORMAL); KERATOCYTES OCC (NORMAL); PLATELET ESTIMATE SMEAR LOW (NORMAL); PLATELET MORPHOLOGY NORMAL (NORMAL); SCAN/DIFF FINAL DIFF MANUAL
[2016-08-02] MEDS: SODIUM CHLOR 0.9% 1000 ML INJ 1,000 ML IV SCH ×2 (12:29→17:05)
--- NOTE | 2016-08-02 17:51 | HHI.PR ---
Subjective Remarks talking randomly pleasant confusion color pale appetite poor. c/o pain off and on, legs (Senait Edwards) Objective Objective Results - Vital Signs Date Time Temp Pulse Resp B/P Pulse Ox O2 Delivery O2 Flow Rate FiO2 08/02/16 06:00 36 08/02/16 04:00 41 08/02/16 04:00 98.4 52 20 130/72 98 08/02/16 02:00 66 08/02/16 01:57 20 08/02/16 00:00 43 08/02/16 00:00 98.0 43 22 139/80 100 08/01/16 22:00 66 08/01/16 20:03 97 21 08/01/16 20:00 97.8 67 21 112/71 96 08/01/16 20:00 67 08/01/16 18:24 42 I/O 08/01/16 08/01/16 08/01/16 08/02/16 08/02/16 08/02/16 07:00 15:00 23:00 07:00 15:00 23:00 Intake Total 1355 ml 804 ml 804 ml 1545 ml Output Total 200 ml 300 ml 250 ml 100 ml 120 ml Balance -200 ml 1055 ml 554 ml 704 ml 1425 ml Intake Oral 500 ml 480 ml IV Total 855 ml 804 ml 804 ml 1065 ml Output Urine Total 200 ml 300 ml 250 ml 100 ml 120 ml # Bowel Movements 0 0 (Senait Edwards) Result Diagram: 08/02/16 0521 08/02/16 0521 ROS General: Other (unable to assess, AMS) (Senait Edwards) Physical Exam Physical Exam PHYSICAL EXAMINATION GENERAL: This is a chronically ill female who appears to be restless in bed. Has not slept all day She is alert HEAD: Normocephalic without any lesion or mass noted. Facial features appear symmetric. OROPHARYNGEAL: Oropharynx without erythema or edema. NECK: Supple. No nuchal rigidity or lymphadenopathy. Trachea midline without deviation. CARDIAC: Regular rhythm, regular rate, S1 and S2 are heard. Murmur none no gallops or rubs. LUNGS: deminished to auscultation bilaterally. ABDOMEN: , flat, Soft, nontender, Bowel sounds are heard in all four quadrants. EXTREMITIES: no edema. mild lower leg cyanosis. NEUROLOGICAL: Patient mood and affect appropriate. No focal deficit SKIN:Warm and moist, pale, dry. lower leg skin Objective Remarks my purse has water in it.? (Senait Edwards) A/P Assessment and Plan dig toxcity bladder cancer martha cardia dementia HR stable, ECG monitoring labs, vital signs reviewed. pain management pt. states that managing her pain is important. Palliative care seeing pt. and family , neice is the go to person. pleasant confusion, meds reconciled supportive care (Senait Edwards) Assessment and Plan 76yr old female seen and examined today. Dementia. Poor recent memory. Agitated. Keeps talking to self. Keeps scratching her legs. Pulled off her IV. Has restraints but still trying to pull her foleys cath. Will add haldol. Awaiting for hospice. Will monitor. Discussed with RN/Senait. No family in room. (Shankar Jerez MD) Senait Edwards Aug 02, 2016 17:51 Shankar Jerez MD Aug 02, 2016 18:24
--- NOTE | 2016-08-02 18:17 | EKG ---
Date Performed: 08/01/2016 Time Performed: 19:00:10 PTAGE: 76 years EKG: ATRIAL FIBRILLATION WITH SLOW VENTRICULAR RESPONSE LEFT AXIS DEVIATION. LOW QRS VOLTAGE IN EXTREMITY LEADS. ANTEROSEPTAL MYOCARDIAL INFARCTION , OF INDETERMINATE AGE. DIFFUSED T-WAVE INVERSION ANTERIORLY AND INFERIORLY, ISCHEMIA VS PREVIOUS INJURY SHOULD BE A CONSIDERATION. SINCE PREVIOUS TRA CING 08/01 2016, THE T-WAVE INVERSIONS ANTERIORLY ARE SOMEWHAT MORE PROMINANT. Clinical correlation is recommended ABNORMAL ECG PREVIOUS TRACING : 08/01/2016 14.44 DOCTOR: Asa Noel Interpretating Date/Time 08/02/2016 18:15:48
[2016-08-02] MEDS: HALOPERIDOL LACTATE 5 MG/ML AMP IM PRN (19:57)
[2016-08-02] MEDS ORDERED: METOCLOPRAMIDE HCL 10 MG/2 ML VIAL IV PRN (23:22)
[2016-08-03] VITALS (12 sets, daily range): BP systolic 124–156; BP diastolic 56–92; PULSE 39–77; RESP 14–25; TEMP 97–97.5; O2SAT 97–99
[2016-08-03] MEDS: SODIUM CHLOR 0.9% 1000 ML INJ 1,000 ML IV SCH ×2 (00:24→12:19)
[2016-08-03] MEDS: CHLORHEXIDINE GLUCONATE 2 % 1 PACK (2 CLOTHS) TOP SCH (03:18)
[2016-08-03] MEDS: LEVOTHYROXINE SODIUM 100 MCG TAB PO SCH (05:44)
[2016-08-03] MEDS: HALOPERIDOL LACTATE 5 MG/ML AMP IM PRN (05:44)
[2016-08-03] MEDS: OXYBUTYNIN CHLORIDE 5 MG TAB PO SCH ×2 (08:49→20:57)
[2016-08-03] MEDS: DOCUSATE SODIUM 100 MG CAP PO SCH ×2 (08:49→20:57)
[2016-08-03] MEDS: EDOXABAN TOSYLATE 30 MG TAB PO SCH (08:49)
[2016-08-03] MEDS: SODIUM CHLORIDE 0.9% FLUSH 5 ML FLUSH IV FLUSH SCH ×2 (08:49→20:57)
[2016-08-03] MEDS: FAMOTIDINE 20 MG/2 ML VIAL IV PUSH SCH (08:49)
--- NOTE | 2016-08-03 11:35 | HHI.PR ---
Subjective Remarks 76yr old female seen and examined today. Sleeping. No acute events overnight per RN. Objective Objective Results - Vital Signs Date Time Temp Pulse Resp B/P Pulse Ox O2 Delivery O2 Flow Rate FiO2 08/03/16 10:00 39 08/03/16 08:00 39 08/03/16 08:00 97.5 39 14 131/56 99 08/03/16 06:00 74 08/03/16 04:00 47 08/03/16 04:00 97.5 47 16 135/67 98 08/03/16 02:00 44 08/03/16 00:00 97.1 44 14 124/58 99 08/03/16 00:00 44 08/02/16 22:00 85 08/02/16 20:00 107 08/02/16 20:00 97.5 77 24 137/94 98 08/02/16 18:00 70 08/02/16 16:00 58 08/02/16 16:00 97.1 58 22 152/102 98 08/02/16 14:00 69 08/02/16 12:00 51 08/02/16 12:00 97.3 51 18 128/81 97 I/O 08/02/16 08/02/16 08/02/16 08/03/16 08/03/16 08/03/16 07:00 15:00 23:00 07:00 15:00 23:00 Intake Total 804 ml 1545 ml 644 ml 566 ml Output Total 100 ml 120 ml 125 ml 175 ml Balance 704 ml 1425 ml 519 ml 391 ml Intake Oral 480 ml 240 ml IV Total 804 ml 1065 ml 404 ml 566 ml Output Urine Total 100 ml 120 ml 125 ml 175 ml # Bowel Movements 0 0 0 Result Diagram: 08/02/1652008/02/16520 ROS General: Fatigue, Weakness HEENT: No: Sore Throat, Dysphagia, Other Cardiac: No: Chest Pain, Edema, Palpitations, Other Pulmonary: No: Cough, SOB, Wheezing, Other GI: No: Abdominal Pain, BM, Diarrhea, N/V, Other /CHANGE BOOTH ATTENDANT: No: Dysuria, Urgency, Other Neuro/MS: No: Lightheaded, Confusion, Other Psych: No: Anxiety, Depression, Other Skin: Itching (psychogenic itching.) Physical Exam Physical Exam PHYSICAL EXAMINATION GENERAL: This is a chronically ill fragile female. Sleeping but arousable. HEAD: Normocephalic without any lesion or mass noted. EYES: Perrla, Normal eye movement, no icterus. OROPHARYNGEAL: Oropharynx without erythema or edema. MOUTH/THROAT: Buccal mucosa is moist NECK: Supple. CARDIAC: Regular rhythm, regular rate, S1 and S2 are heard. LUNGS: Clear to auscultation bilaterally. ABDOMEN: Soft, nontender, no organomegaly or masses. Bowel sounds are heard in all four quadrants. No rebound. No guarding. EXTREMITIES: No edema. NEUROLOGICAL: No focal deficits. SKIN:Warm and moist PSYCH: Confused/demented. A/P Assessment and Plan Assessment: dig toxcity bladder cancer martha cardia dementia Management: HR stable, ECG monitoring labs, vital signs reviewed. Palliative care seeing pt. and family , brendon is the go to person. Dementia meds reconciled supportive care Poor recent memory. Agitated. Keeps talking to self. Keeps scratching her legs. haldol prn. Awaiting for hospice. Will monitor. No family in room. Shankar Jerez MD Aug 03, 2016 11:35 Shankar Jerez MD Aug 03, 2016 11:35
[2016-08-04] VITALS (14 sets, daily range): BP systolic 106–164; BP diastolic 67–93; PULSE 56–99; RESP 16–24; TEMP 97.1–98.5; O2SAT 92–98
[2016-08-04] MEDS: SODIUM CHLOR 0.9% 1000 ML INJ 1,000 ML IV SCH ×3 (00:14→19:59)
[2016-08-04] MEDS: CHLORHEXIDINE GLUCONATE 2 % 1 PACK (2 CLOTHS) TOP SCH (04:00)
[2016-08-04] MEDS: LEVOTHYROXINE SODIUM 100 MCG TAB PO SCH (06:41)
--- NOTE | 2016-08-04 08:14 | MB ---
cc: SARKIS AMOR MD DATE OF CONSULTATION: 08/01/2016. REASON FOR CONSULTATION: Medical management. HISTORY OF PRESENT ILLNESS: According to the record, the patient was brought in per EMS with chest pain and bradycardia. The patient had transcutaneous pacing en route and was given Ativan for sedation. She was admitted to the intensive care and had a temporary pacemaker inserted for her bradycardia. After multiple labs were drawn, it was found that the patient was Dig toxic and she remains in the ICU setting. The patient has history of bladder cancer according to the record. She is a alert, but pleasantly disoriented and has a history of dementia. The patient is a poor historian and unable to give any information towards her case. Any information I am receiving, is from the record since the patient has multiple comorbidities which include bladder cancer, anxiety, hypothyroidism, bradycardia and tachycardia, atrial fibrillation, dermatitis and cellulitis of the lower extremities with probable metastasis of her cancer, long-term tobacco use. [facility] Hospitalists will monitor her medical needs and assist with her plan of care. PAST MEDICAL HISTORY: Her medical history was all in the history of present illness: 1. Bladder mass. 2. Urinary retention. 3. DVT. 4. Tobacco abuse. 5. Pleural effusions. 6. Lactic acidosis. 7. Incontinence. 8. Weakness. 9. Cellulitis of her legs bilateral. 10. Dermatitis of her lower extremities. 11. Bradycardia. 12. Atrial fibrillation. 13. Hypothyroidism. 14. Anxiety. 15. Chronic pain. PAST SURGICAL HISTORY: 1. Bilateral cataracts. 2. Hysterectomy. 3. Oral surgery. 4. Splenectomy ALLERGIES: 1. MULTIDRUG-RESISTANT ORGANISMS. 2. Acinetobacter. REPORTED MEDICATIONS: 1. Coreg. 2. . 3. Digoxin. 4. Synthroid. 5. Lortab. 6. Diprivan. REVIEW OF SYSTEMS: Unable to obtain secondary to the patient's altered mental status. Pleasant mentation. SOCIAL HISTORY: Received from the nurse. the patient lives in a trailer with her sister who is around the same age she is. There is a niece who is involved with her care. PHYSICAL EXAMINATION: VITAL SIGNS: Temperature is 98.7, pulse 47, has been as high as 54, respirations 24, blood pressure 116/58, O2 sat 94. GENERAL: A chronic ill-appearing thin white female almost toothless resting in the bed semi-alert at times. HEAD, EYES, EARS, NOSE, THROAT: Atraumatic, normocephalic. Pupils equal, round and reactive to light and accommodation. Dry pale mucous membranes. NECK: Neck is thin and supple. HEART: Heart sounds S1-S2 distant. No murmurs, rubs or gallops appreciated. LUNGS: Lungs have low air volumes essentially clear anteriorly and posteriorly. ABDOMEN: Abdomen is round and soft. Active bowel sounds. MUSCULOSKELETAL: She randomly moves her extremities with purpose. SKIN: Skin is pale, víctor. very dry and hard to touch. Both lower legs have no edema but have very tough hard skin which is a bluish cyanotic color in nature. She does have some palpable masses felt on her lower legs. NEUROLOGIC: She is semi-alert. She randomly does carry on a conversation but is unaware of her surroundings person, place, time or situation. DIAGNOSTIC DATA: WBC count 13.9, platelet count 52,000, hemoglobin 13.3, hematocrit 39.8, neutrophil absolute 75.6, lymphocyte 7.3, monocytes 15.2. PT/INR 1.8. Chemistry: Sodium 131, potassium 3.9, chloride 96, carbon dioxide 23.8, anion gap 11, BUN 15, creatinine 0.41, random glucose 69, calcium 8.2, phosphorus 2.1. Troponin 0.09 and 0.11. Total protein 2.9. Dig level was greater than 5. MRSA nasal smear was negative. IMAGING STUDIES: Chest x-ray shows mild hazy airspace disease, right lower lung zone air space consolidation, no other acute cardiopulmonary abnormality. ASSESSMENT: 1. Digitoxicity with profound bradycardia. 2. Bladder cancer. 3. Leukocytosis. 4. Thrombocytopenia. 5. Hyponatremia. 6. Moderate protein-calorie malnutrition. PLAN: 1. Our plan is to monitor her medical needs. 2. This afternoon, palliative care has been called in to evaluate the patient's current goals of care and her understanding and to also work with getting the power of employment law attorney to speak for the patient. The patient did have a living will at home and had requested a DNR status. This was verified with her family and the DNR is now in place. 3. The patient has named her niece as her power of employment law attorney and the telephone numbers are on the chart. 4. The patient is very clear about not wanting to pursue any measures for the bladder cancer but it is questionable whether she grasps the full validity of her current hospital status. 5. The niece currently will be the [employer] space salesperson. 6. We will continue to monitor her labs, pain management and be involved in her plan of care. Dictated by ESTHER Bolanos. MD RANDY Yun/KORIN /6:12 PM /7:14 AM
[2016-08-04] MEDS: OXYBUTYNIN CHLORIDE 5 MG TAB PO SCH ×2 (08:37→20:49)
[2016-08-04] MEDS: EDOXABAN TOSYLATE 30 MG TAB PO SCH (08:37)
[2016-08-04] MEDS: DOCUSATE SODIUM 100 MG CAP PO SCH ×2 (08:38→20:28)
[2016-08-04] MEDS: FAMOTIDINE 20 MG/2 ML VIAL IV PUSH SCH (08:38)
[2016-08-04] MEDS: SODIUM CHLORIDE 0.9% FLUSH 5 ML FLUSH IV FLUSH SCH ×2 (09:00→20:49)
--- NOTE | 2016-08-04 14:44 | HHI.HCPN ---
Reason for visit a. To assist with evaluation and management of symptoms including: pain b. To assist medical decision maker(s) with: better understanding of current medical conditions; weighing benefits/burdens of medical treatment options; making medical treatment decisions. Subjective/Interval History Ms Olson is seen today with her niece Donna and sister Lola. She is much clearer cognitively and is emphatic in her goals and desires. She refused to talk w hospice earlier indicating that she is not ready for that. Donna indicates that aunt has been resistant to keeping her informed with what is going on with her medically. She indicates her aunt has been very strong- minded and opinionated. However, indicates that she started to see a decline in her cognition over the last 2-3 months. Of note, her digoxin level on was 0.8. Mrs. Olson previously indicated she did not want further chemotherapy or intervention for her bladder cell cancer, however Donna indicates that she was wanting to look at alternative measures. At least at this point, She has a health care surrogate in place and she is a DNR. Her goal is to return home with her sister. Family/friend interactions Spoke with her niece, Donna, BRITTANY, and sister, Lola. Reviewed additional past history Advance Directives Health Care Surrogate: Copy in medical record Advance Directive Specifics Date completed: 08/01/2016 Health Care Surrogate(s): Donna Geronimo [phone] - lives in [place] Documented care wishes: Clear about DNR/ DNI status; clear about not wanting to pursue further measures for bladder cancer. Expecting to return home Objective Vital Signs Date Time Temp Pulse Resp B/P Pulse Ox O2 Delivery O2 Flow Rate FiO2 08/04/16 10:00 62 08/04/16 08:38 94 08/04/16 08:00 62 08/04/16 08:00 98.5 62 20 164/93 96 08/04/16 06:00 56 08/04/16 04:00 97.5 56 23 106/92 92 08/04/16 04:00 68 08/04/16 02:00 79 08/04/16 00:00 75 08/04/16 00:00 97.1 76 23 157/82 98 08/03/16 22:00 69 08/03/16 20:00 77 08/03/16 20:00 97.5 77 20 156/92 98 08/03/16 18:00 71 08/03/16 16:00 64 08/03/16 16:00 97.0 64 25 154/68 97 Intake & Output 08/04/16 08/04/16 07:00 19:00 Intake Total 1480 ml Output Total 425 ml Balance 1055 ml Intake Oral 200 ml IV Total 1280 ml Output Urine Total 425 ml Physical Exam CONSTITUTIONAL/GENERAL: This is an severely cachectic, elderly female; TUBES/LINES/DRAINS: Left central line, Coon catheter SKIN: Ecchymoses on upper extremities. 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 Normocephalic. EYES: Pupils equal and round and reactive. Extraocular motions intact. No scleral icterus. No injection or drainage. Fundi not examined. ENT: Hearing grossly normal. Nose without bleeding or purulent drainage. Throat without visible erythema, exudates, masses, or lesions. NECK: Trachea midline. Supple, nontender. No palpable thyroid enlargement or nodularity. CARDIOVASCULAR: Significantly bradycardic without murmur No JVD. Peripheral pulses symmetric. RESPIRATORY/CHEST: Symmetric, unlabored respirations. Clear to auscultation. Diminished mid to base GASTROINTESTINAL: Abdomen soft, tender lower abdomen/suprapubic, nondistended. No hepato-splenomegaly, or palpable masses. No guarding. Bowel sounds present. GENITOURINARY: Without palpable bladder distension. Coon catheter in place. MUSCULOSKELETAL: Extremities without clubbing, cyanosis, or edema. No joint tenderness or effusion noted. No calf tenderness. No mottling or clubbing. LYMPHATICS: No palpable cervical or supraclavicular adenopathy. NEUROLOGICAL: Awake and alert, Motor and sensory grossly within normal limits. Follows commands. Moves all extremities. PSYCHIATRIC: No obvious anxiety/depression.. Diagnostic Tests Laboratory Laboratory Tests Test 08/02/16 05:21 White Blood Count 12.6 TH/MM3 (4.0-11.0) Red Blood Count 4.62 MIL/MM3 (4.00-5.30) Hemoglobin 13.6 GM/DL (11.6-15.3) Hematocrit 41.0 % (35.0-46.0) Mean Corpuscular Volume 88.7 FL (80.0-100.0) Mean Corpuscular Hemoglobin 29.3 PG (27.0-34.0) Mean Corpuscular Hemoglobin 33.1 % Concent (32.0-36.0) Red Cell Distribution Width 16.0 % (11.6-17.2) Platelet Count 60 TH/MM3 (150-450) Mean Platelet Volume 10.9 FL (7.0-11.0) Neutrophils (%) (Auto) 69.0 % (16.0-70.0) Lymphocytes (%) (Auto) 9.9 % (9.0-44.0) Monocytes (%) (Auto) 20.5 % (0.0-8.0) Eosinophils (%) (Auto) 0.4 % (0.0-4.0) Basophils (%) (Auto) 0.2 % (0.0-2.0) Neutrophils # (Auto) 8.7 TH/MM3 (1.8-7.7) Lymphocytes # (Auto) 1.3 TH/MM3 (1.0-4.8) Monocytes # (Auto) 2.6 TH/MM3 (0-0.9) Eosinophils # (Auto) 0.1 TH/MM3 (0-0.4) Basophils # (Auto) 0.0 TH/MM3 (0-0.2) CBC Comment AUTO DIFF Differential Total Cells 100 Counted Neutrophils % (Manual) 73 % (16-70) Band Neutrophils % 4 % (0-6) Lymphocytes % 12 % (9-44) Monocytes % 10 % (0-8) Neutrophils # (Manual) 9.8 TH/MM3 (1.8-7.7) Metamyelocytes 1 % (0-1) Differential Comment FINAL DIFF MANUAL Platelet Estimate LOW (NORMAL) Platelet Morphology Comment NORMAL (NORMAL) Acanthocytes OCC (NORMAL) Keratocytes OCC (NORMAL) Sodium Level 133 MEQ/L (136-145) Potassium Level 4.1 MEQ/L (3.5-5.1) Chloride Level 101 MEQ/L (98-107) Carbon Dioxide Level 22.7 MEQ/L (21.0-32.0) Anion Gap 9 MEQ/L (5-15) Blood Urea Nitrogen 22 MG/DL (7-18) Creatinine 1.05 MG/DL (0.50-1.00) Estimat Glomerular Filtration 51 ML/MIN (>89) Rate Random Glucose 155 MG/DL (74-106) Calcium Level 8.1 MG/DL (8.5-10.1) Phosphorus Level 2.0 MG/DL (2.5-4.9) Magnesium Level 1.9 MG/DL (1.5-2.5) Total Bilirubin 0.3 MG/DL (0.2-1.0) Aspartate Amino Transf 50 U/L (15-37) (AST/SGOT) Alanine Aminotransferase 22 U/L (10-53) (ALT/SGPT) Alkaline Phosphatase 101 U/L (45-117) Total Protein 6.3 GM/DL (6.4-8.2) Albumin 2.8 GM/DL (3.4-5.0) Result Diagram: 08/02/1652008/02/16520 Assessment and Plan Disease Oriented Problem List: (1) Hyponatremia (2) Bladder cancer Comment: 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 (2) Anxiety 0-10 Scale: Unable to quantify Pertinent Non-Medical Issues Psychosocial: This 76-year-old female has been living independently with her sister for several years. Per her niece, she has been vocal in maintaining her independence and privacy. She has no children and was many years ago. She lives with her sister who is close to her age and also frail. She has a niece who lives in [place] and is designated as healthcare surrogate Spiritual: She is L[employer] Day, but no longer attends buddhist Legal: None evident Ethical issues impacting care: None evident at this time Important Contacts mohan Oliveros, Prognosis Prognosis is guarded in light of her age, physical frailty, as well, as bladder cancer. She has not been managing self-care, well and has been not eating nor drinking appropriately, resulting in her physical frailty. Code Status: No Code Plan Decision Maker: Donna Geronimobrendon, Code Status: DNR Family Discussion: Spoke with patient, sister, niece at the bedside regarding goals of care. Ms. Olson is more cognitively clear today. Is able to express her desires more clearly. She is not wanting hospice at this time. She expects to go home and live independently again. However, understands she may need time in a rehabilitation facility for strength and nutrition. Symptoms: Pain, debility, failure to thrive Palliative care phone number provided - will follow during hospital stay. Attestation To help prompt me to consider important information that might be impacting today's encounter and assessment, information from prior notes written by myself or my colleagues may have been "brought forward" into today's note. My signature on this note, however, is an attestation that I personally performed the exam, history, and/or decision-making noted today, and, unless otherwise indicated, the interactions with patient, family, and staff as well as the review of records all occurred today. I also attest that the listed assessment and stated plan reflect my best clinical judgment today based on the combination of historical information, prior notes, and today's exam/ interactions. When time spent is documented, it refers only to time spent today by the signer, or if indicated, combined time spent today by collaborating physician/nurse practitioner. Caridad Bah Aug 04, 2016 14:44
--- NOTE | 2016-08-04 17:31 | HHI.PR ---
Subjective History of Present Illness pt is seen & Examined Chart reviewed resting comfortably in bed I am ok still weak feels better No N/V appetite is better no cough or sputum No CP or SOB No diarrhea offers no other c/o Vitals/Results Intake & Output 08/03/16 08/03/16 08/04/16 15:00 23:00 07:00 Intake Total 1001 ml 1480 ml Output Total 125 ml 425 ml Balance 876 ml 1055 ml Intake Oral 250 ml 200 ml IV Total 751 ml 1280 ml Output Urine Total 125 ml 425 ml # Bowel Movements 0 Vital Signs Vital Signs Date Time Temp Pulse Resp B/P Pulse Ox O2 Delivery O2 Flow Rate FiO2 08/04/16 14:00 62 08/04/16 12:00 62 08/04/16 12:00 98.2 99 16 154/67 96 08/04/16 10:00 62 08/04/16 08:38 94 08/04/16 08:00 62 08/04/16 08:00 98.5 62 20 164/93 96 08/04/16 06:00 56 08/04/16 04:00 97.5 56 23 106/92 92 08/04/16 04:00 68 08/04/16 02:00 79 08/04/16 00:00 75 08/04/16 00:00 97.1 76 23 157/82 98 08/03/16 22:00 69 08/03/16 20:00 77 08/03/16 20:00 97.5 77 20 156/92 98 08/03/16 18:00 71 CBC/BMP: 08/02/16 0521 08/02/16 0521 Physical Exam General General Appearance: Comfortable, Malnourished Appearance Remarks very frail elderly WF Eyes Eye Exam: Pupils Equal, Sclera White Ears & Nose Ears & Nose Exam: Nasal Mucosa [place] Throat Throat Exam: Oral Mucosa [place] & Moist Neck Neck Exam: Neck Supple, Trachea Midline Pulmonary Resp Exam: Clear Bilaterally, Breath Sounds Equal Cardiology CV Exam: Regular, Irregular, Arrhythmia Gastrointestinal/Abdomen GI Exam: Soft, Non-Tender, Bowel Sounds Present Genitourinary Remarks +ve chiang catheter Integumentary Skin Exam: Warm, Dry Skin Remarks scaly skin Extremeties Extremities Exam: No Edema, Pedal Pulses Palpable Neurologic Neuro Exam: Alert, Awake, Speech Clear, Moving All Extremities Neuro Remarks forgetful Psychiatric Psych Exam: Appropriate Responses VTE Prophylaxis VTE Remarks edoxaban PUD Prophylasis PUD Remarks pepcid Assessment/Plan Assessment/Plan ASSESSMENT ch Atrial Fibrillation Acute dig toxicity s/p Bradycardia bladder cancer Dementia Frail Health/poof performance status Thrombocytopenia Management: O2 Off Digoxin f/u Dig level edoxaban encourage po intake pt is refusing treatment of bladder ca , No surgery /No chemo or XRT d/c chiang catheter, watch for voiding Pepcid IV reglan palliative care team's input appreciated , pt is not ready for Hospice at this time PT eval Am Labs , f/u platelet level/dig level. ss for d/c planning overall prognosis is poor will f/u Sherri Tovar MD Aug 04, 2016 17:30
[2016-08-05] VITALS (11 sets, daily range): BP systolic 132–176; BP diastolic 62–92; PULSE 60–94; RESP 18–22; TEMP 97.6–98.4; O2SAT 95–99
[2016-08-05] MEDS: MORPHINE SULFATE 4 MG/ML INJ IV PUSH PRN ×4 (00:23→21:13)
[2016-08-05] MEDS: CHLORHEXIDINE GLUCONATE 2 % 1 PACK (2 CLOTHS) TOP SCH (03:38)
[2016-08-05] MEDS: LEVOTHYROXINE SODIUM 100 MCG TAB PO SCH (04:32)
[2016-08-05 05:55] LABS: HEMATOCRIT 36.4 % (35.0-46.0); MEAN CORPUSCULAR HEMOGLOBIN 29.6 PG (27.0-34.0); MEAN CORPUSCULAR HGB CONC 33.6 % (32.0-36.0); PLATELET COUNT 171 TH/MM3 (150-450); RED BLOOD COUNT 4.14 MIL/MM3 (4.00-5.30); RED CELL DISTRIBUTION WIDTH 15.6 % (11.6-17.2); REVIEW FLAG FINAL; WHITE BLOOD COUNT 15.4 TH/MM3 (4.0-11.0)
[2016-08-05 06:57] LABS: BICARBONATE 23.4 MEQ/L (21.0-32.0); DIGOXIN 1.5 NG/ML (0.8-2.0); POTASSIUM 3.4 MEQ/L (3.5-5.1)
[2016-08-05] MEDS: EDOXABAN TOSYLATE 30 MG TAB PO SCH (08:52)
[2016-08-05] MEDS: OXYBUTYNIN CHLORIDE 5 MG TAB PO SCH ×2 (08:53→21:13)
[2016-08-05] MEDS: FAMOTIDINE 20 MG/2 ML VIAL IV PUSH SCH ×2 (08:53→21:13)
[2016-08-05] MEDS: SODIUM CHLORIDE 0.9% FLUSH 5 ML FLUSH IV FLUSH SCH ×2 (09:00→21:12)
[2016-08-05] MEDS: DOCUSATE SODIUM 100 MG CAP PO SCH ×2 (09:00→21:13)
--- NOTE | 2016-08-05 14:50 | HHI.PR ---
Subjective History of Present Illness I am ok less weak HR went up to 140 to 160 w min activity No N/V appetite is better no cough or sputum No CP or SOB No diarrhea no melena or BRBPR offers no other c/o Vitals/Results Intake & Output 08/04/16 08/04/16 08/05/16 15:00 23:00 07:00 Intake Total 360 ml 550 ml 250 ml Output Total 450 ml 250 ml 400 ml Balance -90 ml 300 ml -150 ml Intake Oral 360 ml 550 ml 250 ml Output Urine Total 450 ml 250 ml 400 ml # Bowel Movements 4 3 2 Vital Signs Vital Signs Date Time Temp Pulse Resp B/P Pulse Ox O2 Delivery O2 Flow Rate FiO2 08/05/16 12:00 97.6 94 20 176/74 95 08/05/16 12:00 93 08/05/16 08:38 96 21 08/05/16 08:00 97.8 87 20 164/83 95 08/05/16 08:00 93 08/05/16 06:00 91 08/05/16 04:00 98.4 60 18 132/62 96 08/05/16 04:00 60 08/05/16 02:00 68 08/05/16 00:05 99 Nasal Cannula 4.00 08/05/16 00:00 72 08/05/16 00:00 98.0 72 20 150/87 96 08/04/16 22:00 79 08/04/16 20:00 97.9 83 18 145/90 97 08/04/16 20:00 83 08/04/16 19:47 96 21 08/04/16 18:00 62 08/04/16 16:00 62 08/04/16 16:00 98.4 66 24 148/80 96 CBC/BMP: 08/05/16 0457 08/05/16 0457 Lab Results Laboratory Tests Test 08/05/16 04:57 White Blood Count 15.4 TH/MM3 Red Blood Count 4.14 MIL/MM3 Hemoglobin 12.2 GM/DL Hematocrit 36.4 % Mean Corpuscular Volume 88.0 FL Mean Corpuscular Hemoglobin 29.6 PG Mean Corpuscular Hemoglobin 33.6 % Concent Red Cell Distribution Width 15.6 % Platelet Count 171 TH/MM3 Mean Platelet Volume 9.3 FL Sodium Level 137 MEQ/L Potassium Level 3.4 MEQ/L Chloride Level 106 MEQ/L Carbon Dioxide Level 23.4 MEQ/L Anion Gap 8 MEQ/L Blood Urea Nitrogen 13 MG/DL Creatinine 0.50 MG/DL Estimat Glomerular Filtration 120 ML/MIN Rate Random Glucose 86 MG/DL Calcium Level 7.6 MG/DL Digoxin Level 1.5 NG/ML Physical Exam General General Appearance: No Acute Distress, Comfortable, Malnourished Appearance Remarks very frail elderly WF Eyes Eye Exam: Pupils Equal, Sclera White Ears & Nose Ears & Nose Exam: Nasal Mucosa [place] Throat Throat Exam: Oral Mucosa [place] & Moist Neck Neck Exam: Neck Supple, Trachea Midline Pulmonary Resp Exam: Clear Bilaterally, Breath Sounds Equal Cardiology CV Exam: Irregular, Arrhythmia, Tachycardia Gastrointestinal/Abdomen GI Exam: Soft, Non-Tender, Bowel Sounds Present Genitourinary Remarks +ve chiang catheter Integumentary Skin Exam: Warm, Dry Skin Remarks scaly skin Extremeties Extremities Exam: No Edema, Pedal Pulses Palpable Neurologic Neuro Exam: Alert, Awake, Oriented, Speech Clear, Moving All Extremities Neuro Remarks forgetful Psychiatric Psych Exam: Appropriate Responses VTE Prophylaxis VTE Remarks edoxaban PUD Prophylasis PUD Remarks pepcid Assessment/Plan Assessment/Plan ASSESSMENT ch Atrial Fibrillation w RVR Acute dig toxicity s/p Bradycardia bladder cancer Dementia Frail Health/poof performance status Thrombocytopenia Leukocytosis Management: O2 Off Digoxin f/u Dig level better start cardizem , will give 1 dose IV cardizem than po cardizem edoxaban encourage po intake add supplement pt is refusing treatment of bladder ca , No surgery /No chemo or XRT Pepcid IV reglan palliative care team's input appreciated , pt is not ready for Hospice at this time PT eval ss for d/c planning /possible ./d c in am , will benefit from SNF placement overall prognosis is poor d/w RN will f/u Sherri Tovar MD Aug 05, 2016 14:50 Sherri Tovar MD Aug 05, 2016 14:50
[2016-08-05] MEDS ORDERED: DILTIAZEM HCL 25 MG/5 ML VIAL IV ONE (15:00)
[2016-08-05] MEDS ORDERED: POTASSIUM CHLORIDE 20 MEQ CONTROLLED RELEASE TAB PO ONE (15:15)
[2016-08-05] MEDS: DILTIAZEM HCL 30 MG TAB PO SCH ×2 (17:42→21:12)
[2016-08-05] MEDS: DEXT 5%-NACL 0.45% 1000 ML INJ 1,000 ML IV SCH (17:56)
[2016-08-05] MEDS: HALOPERIDOL LACTATE 5 MG/ML AMP IM PRN (22:29)
[2016-08-06] VITALS: BP 141/92; PULSE 80; RESP 18; TEMP 98.2; O2SAT 95
[2016-08-06] MEDS: MORPHINE SULFATE 4 MG/ML INJ IV PUSH PRN (01:59)
[2016-08-06] MEDS: CHLORHEXIDINE GLUCONATE 2 % 1 PACK (2 CLOTHS) TOP SCH (03:17)
[2016-08-06 04:00] VITALS: BP 136/95; PULSE 63; RESP 15; TEMP 98.9; O2SAT 93
[2016-08-06] MEDS: LEVOTHYROXINE SODIUM 100 MCG TAB PO SCH (04:56)
[2016-08-06] MEDS: DEXT 5%-NACL 0.45% 1000 ML INJ 1,000 ML IV SCH (04:56)
[2016-08-06 08:00] VITALS: BP 128/58; PULSE 128; RESP 22; TEMP 97.9; O2SAT 99
[2016-08-06 08:21] VITALS: O2SAT 94
[2016-08-06 09:00] VITALS: PULSE 1
[2016-08-06] MEDS: SODIUM CHLORIDE 0.9% FLUSH 5 ML FLUSH IV FLUSH SCH (09:00)
[2016-08-06] MEDS: OXYBUTYNIN CHLORIDE 5 MG TAB PO SCH (09:01)
[2016-08-06] MEDS: EDOXABAN TOSYLATE 30 MG TAB PO SCH (09:01)
[2016-08-06] MEDS: DOCUSATE SODIUM 100 MG CAP PO SCH (09:01)
[2016-08-06] MEDS: DILTIAZEM HCL 30 MG TAB PO SCH (09:02)
[2016-08-06] MEDS: FAMOTIDINE 20 MG/2 ML VIAL IV PUSH SCH (09:02)
[2016-08-06] MEDS: HALOPERIDOL LACTATE 5 MG/ML AMP IM PRN (09:06)
--- NOTE | 2016-08-06 10:56 | HHI.PR ---
Subjective Subjective Remarks Resting in bed Alert Pleasantly confused Appetite poor Color pale (Senait Edwards) Review of Systems Constitutional Constitutional: Weakness (generalized advanced cancer) Constitutional Remarks Limited ROS reviewed due to patient's pleasant confusion, dementia (Senait Edwards) Psychiatric Psychiatric: Normal Mood, Anxiety Psychiatric Remarks Pleasantly confused (Senait Edwards) Vitals/Results Intake & Output 08/05/16 08/05/16 08/06/16 15:00 23:00 07:00 Intake Total 360 ml 400 ml 450 ml Output Total 200 ml 600 ml Balance 160 ml -200 ml 450 ml Intake Oral 360 ml 400 ml 450 ml Output Urine Total 200 ml 600 ml # Voids 3 3 # Bowel Movements 0 Vital Signs Vital Signs Date Time Temp Pulse Resp B/P Pulse Ox O2 Delivery O2 Flow Rate FiO2 08/06/16 09:00 1 08/06/16 08:21 94 Nasal Cannula 2.00 08/06/16 08:00 97.9 128 22 128/58 99 08/06/16 04:00 98.9 63 15 136/95 93 08/06/16 04:00 63 08/06/16 00:00 98.2 80 18 141/92 95 08/06/16 00:00 80 08/05/16 20:00 98.2 80 18 141/92 95 08/05/16 20:00 80 08/05/16 19:43 97 Nasal Cannula 2.00 08/05/16 16:00 97.8 84 22 160/82 95 08/05/16 16:00 93 08/05/16 12:00 97.6 94 20 176/74 95 08/05/16 12:00 93 (Senait Edwards) CBC/BMP: 08/05/16 0457 08/05/16 0457 Current Medications Active Medications Dextrose/Sodium Chloride (D5W-1/2 NS 1000 ml Inj) 1,000 ml @ 84 mls/hr [id number] IV Last administered on 08/06/16 04:56; Admin Dose 84 MLS/HR; Start 08/05/16 at 17:15 Diltiazem HCl (Cardizem Inj) 10 mg ONCE ONCE IV Last administered on 08/05/16 15:27; Admin Dose 10 MG; Start 08/05/16 at 15:00; Stop 08/05/16 at 15:07; Status DC Diltiazem HCl 30 mg 30 mg QID PO Last administered on 08/06/16 09:02; Admin Dose 30 MG; Start 08/05/16 at 18:00 Famotidine (Pepcid Inj) 20 mg BID IV PUSH Last administered on 08/06/16 09:02; Admin Dose 20 MG; Start 08/05/16 at 21:00 Potassium Chloride (KCl) 40 meq ONCE ONCE PO Last administered on 08/05/16 15: 26; Admin Dose 40 MEQ; Start 08/05/16 at 15:15; Stop 08/05/16 at 15:16; Status DC (Senait EdwardsP) Physical Exam General General Appearance: No Acute Distress, Comfortable, Pale, Malnourished (Senait Edwards STROKE PROGRAM COORDINATOR) Eyes Eye Exam: Pupils Equal, Sclera White (Senait Edwards STROKE PROGRAM COORDINATOR) Ears & Nose Ears & Nose Exam: Nasal Mucosa [place] (Senait Edwards STROKE PROGRAM COORDINATOR) Throat Throat Exam: Oral Mucosa [place] & Moist (Senait Edwards STROKE PROGRAM COORDINATOR) Neck Neck Exam: Neck Supple, Trachea Midline (Senait Edwards STROKE PROGRAM COORDINATOR) Pulmonary Resp Exam: Clear Bilaterally, Breath Sounds Equal (Senait Edwards. STROKE PROGRAM COORDINATOR) Cardiology CV Exam: Irregular, Arrhythmia, Tachycardia (Senait Edwards. STROKE PROGRAM COORDINATOR) Gastrointestinal/Abdomen GI Exam: Soft, Non-Tender, Bowel Sounds Present (Senait Edwards STROKE PROGRAM COORDINATOR) Musculoskeletal MS Remarks Possible soft masses bilateral lower legs (Senait Edwards STROKE PROGRAM COORDINATOR) Integumentary Skin Exam: Warm, Dry (Senait Edwards. STROKE PROGRAM COORDINATOR) Extremeties Extremities Exam: No Edema, Pedal Pulses Palpable (Senait Edwards. STROKE PROGRAM COORDINATOR) Neurologic Neuro Exam: Alert, Awake, Oriented, Speech Clear, Moving All Extremities ( Senait Edwards M. STROKE PROGRAM COORDINATOR) Psychiatric Psych Exam: Appropriate Responses (Senait Edwards STROKE PROGRAM COORDINATOR) Assessment/Plan Assessment/Plan ASSESSMENT ch Atrial Fibrillation w RVR Acute dig toxicity s/p Bradycardia bladder cancer Dementia Frail Health/poof performance status Thrombocytopenia Leukocytosis Management: O2, patient now on room air Medical management with medications , no Lanoxin DO NOT RESUSCITATE, but patient is currently refusing hospice. Encouraged nutritional food and liquids to her desire, is tolerating by mouth fluids better pt is refusing treatment of bladder ca , No surgery /No chemo or XRT PPI with Pepcid Spoke with case management at this morning who is working on SNF placement, patient is agreeable for plan 3008 on chart overall prognosis is poor d/w RN d/w / [place], patient seen on his behalf (Senait Edwards) Assessment/Plan pt is seen & examined feels better / eager to get out of here ' HR better controlled , though still have some spikes w activity BP stable , will change cardizem to cardizem CD 180 mg qd , first dose today poor candidate for AC d/t bladder ca & higher risk of bleeding rec ASA offers no c/o medically stable for dc dc to SNF see Orders see HRS see MRS f/u pcp (Sherri Tovar MD) Senait Edwards Aug 06, 2016 10:56 Sherri Tovar MD Aug 06, 2016 12:05
[2016-08-06 12:00] VITALS: BP 158/78; PULSE 85; RESP 29; TEMP 97.6; O2SAT 97
[2016-08-06] MEDS ORDERED: DILTIAZEM-CD 180 MG CAP ER PO ONE (12:00)
[2016-08-06] MEDS ORDERED: CARD180C5 PO (12:12)
[2016-08-06] MEDS ORDERED: NORC5TAB PO (12:12)
[2016-08-06] MEDS ORDERED: QUEtiapine FUMARATE 25 MG TAB PO SCH (22:00)
[2016-08-07] MEDS ORDERED: DILTIAZEM-CD 180 MG CAP ER PO SCH (09:00)
--- NOTE | 2016-09-30 17:32 | HHI.DS ---
Discharge Summary Admission Date Jul 31, 2016 at 12:37 Discharge Date: Aug 06, 2016 Admitting Diagnosis dig toxicity Brief History 76-year-old female with history of atrial fibrillation on digoxin presents to us via [facility] with chest pain. EKG and lab results showed dig toxicity. Medics report bradycardia. They gave her atropine. They also attempted transcutaneous pacing. They premedicated her with Ativan prior to pacing. Patient is very lethargic and somnolent due to Ativan. Imaging Last Impressions Chest X-Ray 07/31/16 1107 Signed Impressions: Service Date/Time: , July 31, 2016 11:06 - CONCLUSION: Mild hazy airspace opacity in the right lower lung zone likely representing airspace consolidation. Otherwise, no acute cardiopulmonary abnormality is appreciated. Pedro Lucas MD PE at Discharge GENERAL: This was a chronically ill female who appeared to be restless in bed. Had not slept all day She was alert HEAD: Normocephalic without any lesion or mass noted. Facial features appear symmetric. OROPHARYNGEAL: Oropharynx without erythema or edema. NECK: Supple. No nuchal rigidity or lymphadenopathy. Trachea midline without deviation. CARDIAC: Regular rhythm, regular rate, S1 and S2 are heard. Murmur none no gallops or rubs. LUNGS: deminished to auscultation bilaterally. ABDOMEN: , flat, Soft, nontender, Bowel sounds are heard in all four quadrants. EXTREMITIES: no edema. mild lower leg cyanosis. NEUROLOGICAL: Patient mood and affect appropriate. No focal deficit SKIN:Warm and moist, pale, dry. lower leg skin Hospital Course These are the diagnoses that were used to treat this patient during this hospital stay dig toxcity bladder cancer martha cardia dementia Frail Health/poof performance status Thrombocytopenia Leukocytosis Vital signs were monitored every 4 with abnormals treated and monitored. Heart rate was noted to be stable She also had ECG monitoring for the dig toxicity. Patient was unable to tolerate dosing of dig anymore Labs were reviewed daily. Chief control and medical necessity for this patient throughout this hospital course was managing her symptoms and keeping her comfortable. Also worked on heart rate and medications for her cardiac needs Medications were reconciled on admission and monitored throughout hospital stay Patient had episodes of urticaria, treated with medicines, although probably secondary to her renal cancer in insufficiency pain management pt. states that managing her pain is important. This is predominantly due to patient's bladder cancer Palliative care seeing pt. and family , brendon is the go to person. Consult done on 08-04-16 patient was provided supportive care for her and her family throughout this course of events pleasant confusion,bladder cancer DO NOT RESUSCITATE, but patient is currently refusing hospice. O2 therapy was used if patient sat was less than 92, patient was able to trend to using only room air patient now on room air, Medical management with medications , no Lanoxin Encouraged nutritional food and liquids to her desire, is tolerating by mouth fluids better pt is refusing treatment of bladder ca , No surgery /No chemo or XRT PPI with Pepcid pt is seen & examined daily. After several days in the hospital and pain managed, patient was feeling better, eager to get out of here ' HR better controlled , though still have some spikes w activity BP stable , will change cardizem to cardizem CD 180 mg qd , first dose today poor candidate for AC d/t bladder ca & higher risk of bleeding rec ASA offers no c/o Dementia. Continued throughout her hospital stay Poor recent memory. Agitated. Keeps talking to self. Keeps scratching her legs. Pulled off her IV. Has restraints but still trying to pull her foleys cath. Will add haldol. medically stable for dc on 3:15 dc to SNF Pt Condition on Discharge: Fair Discharge Disposition: Discharge to SNF Discharge Instructions DIET: Follow Instructions for: As Tolerated, No Restrictions Fluid Restrictions: none Activities you can perform: Regular-No Restrictions Follow up Referrals: Oncology PCP Follow-up New Medications: Hydrocodone-Acetaminophen (Everetts) 5-325 mg Tab 1 TAB PO Q6H PRN PAIN #30 Ref 0 TAB Diltiazem CD 24 HR (Cardizem CD 24 HR) 180 Mg Caper 180 MG PO DAILY a fib #30 CAP Continued Medications: Edoxaban (Savaysa) 30 Mg Tab 30 MG PO DAILY Blood Clot Prevention #30 Ref 0 TAB Levothyroxine (Synthroid) 100 Mcg Tab 100 MCG PO DAILY Thyroid #30 Ref 0 TAB Oxybutynin (Ditropan) 5 Mg Tab 5 MG PO BID Urinary Symptom Managemen #60 Ref 0 TAB Discontinued Medications: Carvedilol (Carvedilol) 6.25 Mg Tab 6.25 MG PO BID #60 Ref 0 TAB Digoxin (Digoxin) 0.25 Mg Tab 0.25 MG PO DAILY Regulate Heart Beat #30 Ref 0 TAB Hydrocodone-Acetaminophen (Lortab) 5-325 Mg Tab 1 TAB PO Q6H PRN PAIN Ref 0 TAB Senait Edwards September 30, 2016 17:32
[2016-10-15] MEDS ORDERED: WARF-23 PO (13:19)
[2016-10-15] MEDS ORDERED: BACT800T5 PO (13:46)
== END 2016-08-06 15:45 | DRG 309 ==
LOC: NEPA 11:02 → NEDA 12:37 → NEDH 17:40 → HIMN 18:55
PROVIDERS: ADMIT Internal Medicine Critical Care Medicine; ATTEND Internal Medicine Critical Care Medicine
PROC: 5A1223Z Performance of Cardiac Pacing, Continuous (ICD-10-PCS; principal; 2016-07-31)
DX: R00.1 Bradycardia, unspecified (principal); E44.0 Moderate protein-calorie malnutrition; D69.6 Thrombocytopenia, unspecified; F03.90 Unspecified dementia, unspecified severity, without behavioral disturbance, psychotic disturbance, mood disturbance, and anxiety; E87.1 Hypo-osmolality and hyponatremia; L03.115 Cellulitis of right lower limb; L03.116 Cellulitis of left lower limb; Z68.1 Body mass index [BMI] 19.9 or less, adult; C67.9 Malignant neoplasm of bladder, unspecified; I48.91 Unspecified atrial fibrillation; I10 Essential (primary) hypertension; R40.0 Somnolence; E87.5 Hyperkalemia; E03.9 Hypothyroidism, unspecified; I73.9 Peripheral vascular disease, unspecified; E78.5 Hyperlipidemia, unspecified; L30.9 Dermatitis, unspecified; R62.7 Adult failure to thrive; M81.0 Age-related osteoporosis without current pathological fracture; M19.90 Unspecified osteoarthritis, unspecified site; M21.372 Foot drop, left foot; F17.210 Nicotine dependence, cigarettes, uncomplicated; R74.8 Abnormal levels of other serum enzymes; R32 Unspecified urinary incontinence; Z66 Do not resuscitate; Z51.5 Encounter for palliative care; Z85.828 Personal history of other malignant neoplasm of skin; Z78.1 Physical restraint status; T46.0X5A Adverse effect of cardiac-stimulant glycosides and drugs of similar action, initial encounter
CPT/HCPCS: 33210; 36556; 71010; 76937; 80048; 80053; 80162; 82550; 83735; 84100; 84484; 85007; 85025; 85027; 85610; 85730; 87641; 93005; J0461; J1162; J1265; J1630; J2250; J2270; J2405; J7030; J7042

== ENCOUNTER 2016-12-01 18:23 | Inpatient (IN) | payer MEDICARE ==
[~2016-12-01 18:23] MED LIST changes: +BACT800T5 PO; +CARD180C5 PO; -CARV3.125 PO; -DIGO0.25 PO; -EDOX1TAB2 PO; -HYDR-3533 PO; -TYLETAB34 PO; +WARF-23 PO
[2016-12-01 18:57] VITALS: BP 142/83; PULSE 94; RESP 21; TEMP 98.2; O2SAT 99
[2016-12-01] MEDS ORDERED: SODIUM CHLORID 0.9% 500 ML INJ 500 ML IV ONE (19:30)
--- NOTE | 2016-12-01 19:30 | PD ---
HPI Chief Complaint: Altered Mental Status Time Seen by Provider: 19:21 Travel History International Travel<30 days: No Contact w/Intl Traveler<30days: No Traveled to known affect area: No History of Present Illness HPI The patient is a 76 year old female who presents to the [facility] emergency department with a history of being noted by a family member to have altered mentation prior to arrival. The patient was last seen normal before noon. The patient was noted to be stinging, intermittently screaming out and not answering questions appropriately according to her family member. She was brought in by ambulance services. No family member is available at the bedside at this time. IV access was obtained prior to arrival and the patient was given 450 mL of normal saline en route to this facility. The patient reports having nausea when asked and also reports having abdominal pain. The patient otherwise is a poor historian intermittently singing during the evaluation. Regarding orientation questioning, the only question that the patient answers appropriately is the current year. According to ambulance services patient has a history of bladder cancer that she has elected not to treat. The patient has a history of atrial fibrillation. She reports having nausea but no vomiting. She reports that she does smoke cigarettes. Otherwise, review of systems is limited in this patient who is currently confused. COUNTS INCLUDE 234 BEDS AT THE [facility] Past Medical History Narrative Medical The patient's past medical history is significant for atrial fibrillation, history of bladder cancer, history of hyperlipidemia, history of hypertension, history of hypothyroid disorder, history of a bowel obstruction, history of arthritis, anxiety and depression, history of skin cancer, history of a left foot drop. Arthritis: Yes Autoimmune Disease: No Anxiety: Yes Depression: Yes Heart Rhythm Problems: Yes Cancer: Yes (SKIN, bladder, ) Cardiovascular Problems: Yes (AFIB) High Cholesterol: Yes Chemotherapy: No Chest Pain: No Congestive Heart Failure: No Cerebrovascular Accident: No Diabetes: No Diminished Hearing: No Endocrine: Yes Gastrointestinal Disorders: Yes (HX OBSTR.) GERD: No Genitourinary: Yes (HEMATURIA) Headaches: Yes Hepatitis: No Hiatal Hernia: No Hypertension: Yes Immune Disorder: No Implanted Vascular Access Dvce: No Musculoskeletal: Yes (ARTHRITIS) Neurologic: Yes (LEFT FOOT DROP (ANKLE NERVE DAMAGE)) Psychiatric: Yes (ANXIETY) Reproductive: No Respiratory: No Migraines: No Radiation Therapy: No Seizures: No Thyroid Disease: Yes Ulcer: No Menopausal: Yes Past Surgical History Narrative Surgical The patient's past surgical history is significant for total abdominal hysterectomy with bilateral salpingo-oophorectomy, history of cataract surgery. Abdominal Surgery: Yes (SPLENECTOMY) AICD: No Cardiac Surgery: No Ear Surgery: No Endocrine Surgery: No Eye Surgery: Yes (MICHELLE. 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) Reported Meds & Prescriptions Reported Meds & Active Scripts Active Bactrim DS (Sulfamethoxazole-Trimethoprim) 800-160 Mg Tab 1 Tab PO BID Cardizem CD 24 HR (Diltiazem CD 24 HR) 180 Mg Caper 180 Mg PO DAILY Reported Warfarin 5 Mg Tab 5 Mg PO DAILY Synthroid (Levothyroxine Sodium) 100 Mcg Tab 100 Mcg PO DAILY Ditropan (Oxybutynin Chloride) 5 Mg Tab 5 Mg PO BID Review of Systems Except as stated in HPI: all other systems reviewed are Neg General / Constitutional: No: Fever Eyes: No: Visual changes HENT: No: Headaches Cardiovascular: No: Chest Pain or Discomfort Respiratory: No: Shortness of Breath Gastrointestinal: Positive: Nausea, Abdominal Pain, No: Vomiting, Diarrhea Genitourinary: No: Dysuria Musculoskeletal: No: Pain Skin: No Rash Neurologic: Positive: Change in Mentation, No: Weakness Psychiatric: No: Depression Endocrine: No: Polydipsia Hematologic/Lymphatic: No: Easy Bruising Physical Exam Narrative General: The patient is a well-developed well-nourished female, intermittently agitated on arrival, intermittently singing. Head and Neck exam: Head is normocephalic atraumatic. Eyes: EOMI, pupils are equal round and reactive to light. Nose: Midline septum with pink mucous membranes Mouth: Dentition unremarkable. Dry mucus membranes. Posterior oropharynx is not erythematous. No tonsillar hypertrophy. Uvula midline. Airway patent. Neck: No palpable lymphadenopathy. No nuchal rigidity. No thyromegaly. Cardiovascular: Irregularly irregular with a rate in the low 100s consistent with her history of atrial fibrillation without murmurs, gallops, or rubs. Lungs: Clear to auscultation bilaterally. No wheezes, rhonchi, or rales. Abdomen: Soft, with suprapubic abdominal distention palpated and tenderness on palpation of the suprapubic area suspicious for urinary retention. No tenderness on palpation of bilateral upper quadrants of the abdomen and midepigastric area. No guarding, rebound, or rigidity. Normal bowel sounds are audible. No tenderness on palpation of McBurney's point. Negative [place] sign. Extremities: No clubbing, cyanosis, or edema. 2+ pulses in all 4 extremities. No calf tenderness on palpation. Back: No spinous process tenderness to palpation. No costovertebral angle tenderness to palpation. Neurologic Exam: Cranial nerves 2-12 were intact on exam. Strength is 5/5 in all 4 extremities. No sensory deficits noted. Skin Exam: No rash noted. Intact skin that is warm and dry. The patient has dry skin with poor skin turgor. Data Data Last Documented VS Vital Signs Date Time Temp Pulse Resp B/P Pulse Ox O2 Delivery O2 Flow Rate FiO2 12/01/16 21:00 54 17 129/75 100 Nasal Cannula 2 12/01/16 18:57 98.2 Orders Electrocardiogram (12/01/16 19:21) Complete Blood Count With Diff (12/01/16 19:21) Comprehensive Metabolic Panel (12/01/16 19:21) Creatine Kinase (Cpk) (12/01/16 19:21) Ckmb (Isoenzyme) Profile (12/01/16 19:21) Troponin I (12/01/16 19:21) B-Type Natriuretic Peptide (12/01/16 19:21) Prothrombin Time / Inr (Pt) (12/01/16 19:21) Act Partial Throm Time (Ptt) (12/01/16 19:21) Lipase (12/01/16 19:21) Urinalysis - C+S If Indicated (12/01/16 19:21) Magnesium (Mg) (12/01/16 19:21) Ammonia (12/01/16 19:21) Thyroid Stimulating Hormone (12/01/16 19:21) Chest, Single Ap (12/01/16 19:21) Ct Brain W/O Iv Contrast(Rout) (12/01/16 19:21) Ct Abd/Pel W Iv Contrast(Rout) (12/01/16 19:21) Iv Access Insert/Monitor (12/01/16 19:21) Ecg Monitoring (12/01/16 19:21) Oximetry (12/01/16 19:21) Urinary Catheter Insert/Apply (12/01/16 19:21) Drug Screen, Random Urine (12/01/16 19:21) Alcohol (Ethanol) (12/01/16 19:21) Sodium Chlorid 0.9% 500 Ml Inj (Ns 500 M (12/01/16 19:30) CKMB (12/01/16:35) CKMB% (12/01/16:35) Iohexol 350 Inj (Omnipaque 350 Inj) (12/01/16 21:21) Admit Order (Ed Use Only) (12/01/16 22:15) Labs Laboratory Tests Test 12/01/16 19:35 White Blood Count 7.1 TH/MM3 Red Blood Count 4.33 MIL/MM3 Hemoglobin 13.1 GM/DL Hematocrit 39.0 % Mean Corpuscular Volume 90.1 FL Mean Corpuscular Hemoglobin 30.3 PG Mean Corpuscular Hemoglobin 33.7 % Concent Red Cell Distribution Width 18.0 % Platelet Count 326 TH/MM3 Mean Platelet Volume 8.9 FL Neutrophils (%) (Auto) 59.5 % Lymphocytes (%) (Auto) 27.9 % Monocytes (%) (Auto) 6.9 % Eosinophils (%) (Auto) 4.2 % Basophils (%) (Auto) 1.5 % Neutrophils # (Auto) 4.2 TH/MM3 Lymphocytes # (Auto) 2.0 TH/MM3 Monocytes # (Auto) 0.5 TH/MM3 Eosinophils # (Auto) 0.3 TH/MM3 Basophils # (Auto) 0.1 TH/MM3 CBC Comment DIFF FINAL Differential Comment Prothrombin Time 11.7 SEC Prothromb Time International 1.1 RATIO Ratio Activated Partial 30.6 SEC Thromboplast Time Urine Color LIGHT-YELLOW Urine Turbidity CLEAR Urine pH 7.0 Urine Specific [place] 1.004 Urine Protein NEG mg/dL Urine Glucose (UA) NEG mg/dL Urine Ketones NEG mg/dL Urine Occult Blood TRACE Urine Nitrite NEG Urine Bilirubin NEG Urine Urobilinogen LESS THAN 2.0 MG/DL Urine Leukocyte Esterase NEG Urine RBC LESS THAN 1 /hpf Urine WBC 2 /hpf Urine Amorphous Sediment RARE Microscopic Urinalysis Comment CULT NOT INDICATED Sodium Level 132 MEQ/L Potassium Level 3.9 MEQ/L Chloride Level 100 MEQ/L Carbon Dioxide Level 23.2 MEQ/L Anion Gap 9 MEQ/L Blood Urea Nitrogen 13 MG/DL Creatinine 0.82 MG/DL Estimat Glomerular Filtration 68 ML/MIN Rate Random Glucose 70 MG/DL Calcium Level 8.6 MG/DL Magnesium Level 2.1 MG/DL Total Bilirubin 0.8 MG/DL Aspartate Amino Transf 61 U/L (AST/SGOT) Alanine Aminotransferase 44 U/L (ALT/SGPT) Alkaline Phosphatase 109 U/L Ammonia 25 MCMOL/L Total Creatine Kinase 443 U/L Creatine Kinase MB 9.8 NG/ML Creatine Kinase MB % 2.2 % Troponin I LESS THAN 0.02 NG/ML B-Type Natriuretic Peptide 157 PG/ML Total Protein 8.1 GM/DL Albumin 3.8 GM/DL Lipase 90 U/L Thyroid Stimulating Hormone GREATER THAN 3rd Gen 100.000 uIU/ML Urine Opiates Screen NEG Urine Barbiturates Screen NEG Urine Amphetamines Screen NEG Urine Benzodiazepines Screen NEG Urine Cocaine Screen NEG Urine Cannabinoids Screen NEG Ethyl Alcohol Level LESS THAN 3 MG/DL Free Thyroxine 0.14 NG/DL Free Triiodothyronine (T3) LESS THAN 0.50 pg/dL PG/ML MDM Medical Decision Making Medical Screen Exam Complete: Yes Emergency Medical Condition: Yes Medical Record Reviewed: Yes Interpretation(s) Last Impressions Head CT 12/01/161920 Signed Impressions: Service Date/Time: Thursday, December 01, 2016 21:16 - CONCLUSION: Negative for an acute process. Arik Ly MD FACR Chest X-Ray 12/01/161920 Signed Impressions: Service Date/Time: Thursday, December 01, 2016 19:18 - CONCLUSION: No acute disease. Arik Ly MD FACR Abdomen/Pelvis CT 12/01/161920 Signed Impressions: Service Date/Time: Thursday, December 01, 2016 21:21 - CONCLUSION: Examination is severely limited bilateral body fat and habitus. There is no free air there is no abnormal mass. Pneumatocele fracture. I do not see etiology for the severe abdominal pain. Arik Ly MD FACR Differential Diagnosis Urinary tract infection, versus sepsis of undetermined origin, versus metabolic encephalopathy, versus alcohol intoxication, versus other substance intoxication , versus intracranial abnormality, versus abscess encephalopathy Narrative Course During the course of the patients emergency department visit, the patients history, examination, and differential diagnosis were reviewed with the patient. The patient had IV access obtained and blood work sent for analysis. The patient is placed on a cardiac rehab nurse with oximetry and blood pressure monitoring. An ECG was done on arrival. The patient's ECG reveals a heart rate of 108, A. fib with RVR, marked left axis deviation, no acute ST segment elevation, T waves are inverted in V4, V5, V6. A CT scan of the abdomen and pelvis, CT scan of the brain was ordered. A Coon catheter will be placed to gravity. The patient was initially provided normal saline a 500 mL bolus 1. The patients laboratory studies were reviewed and remarkable for a white count of 7.1, hemoglobin 13.1, platelets 326 with a normal differential, CMP is remarkable for sodium of 132, glucose 70, AST 61, CPK 443 with an MB percent of 2.2, troponin I is less than 0.02, BNP 157, TSH greater than 100, PT 11.7, PTT 30.6. Alcohol less than 3, urine drug screen negative Radiology studies were reviewed and remarkable for a CT scan of the brain that showed no acute abnormality. Chest x-ray showed no acute cardiopulmonary disease. CT scan of the abdomen and pelvis showed no acute abnormality to explain the patient's abdominal pain. The patients results were discussed with the patient, including the plan of care. I explained that further testing and/ or monitoring is indicated based on the patients history, examination, and/ or laboratory findings. Therefore, I recommended admission for additional evaluation. The patient expressed understanding and was agreeable with this plan. The patient was admitted to the hospital in stable condition and sent to a bed under the care of the [facility] hospitalist group. Physician Communication Physician Communication The patient's case was discussed with the [facility]ist group who did agree to admit the patient for further evaluation and treatment at this time. Diagnosis Primary Impression: Altered mental status Qualified Code: R41.0 - Delirium Admitting Information Admitting Physician Requests: Admit Bernice Young MD Dec 01, 2016 19:30
--- NOTE | 2016-12-01 19:56 | RADRPT ---
EXAM DATE/TIME: 12/01/2016 19:18 [facility] COMPARISON: CHEST SINGLE AP, July 31, 2016, 21:21. INDICATIONS : Cough. MEDICAL HISTORY : None. SURGICAL HISTORY : None. ENCOUNTER: Initial ACUITY: 1 day PAIN SCORE: Non-responsive. LOCATION: Bilateral chest FINDINGS: A single view of the chest demonstrates the lungs to be symmetrically aerated without evidence of mas s, infiltrate or effusion. The cardiomediastinal contours are unremarkable. Osseous structures are intact. CONCLUSION: No acute disease. Arik Ly MD FACR on December 01, 2016 at 19:55 Board Certified Radiologist. This report was verified electronically.
[2016-12-01 20:00] VITALS: BP 127/69; PULSE 60; RESP 15; O2SAT 100
[2016-12-01 20:03] LABS: BLOOD, URINE TRACE (NEG); COMMENT (UR) CULT NOT INDICATED; CULTURE IF INDICATED CULT NOT INDICATED; GLUCOSE,URINE NEG (NEG); KETONE, URINE NEG (NEG); NITRITE,URINE NEG (NEG); URINE COLOR LIGHT-YELLOW (YELLW/STRAW)
[2016-12-01 20:05] LABS: AUTOMATED NEUTROPHIL # 4.2 TH/MM3 (1.8-7.7); BASOPHIL # 0.1 TH/MM3 (0-0.2); BASOPHIL % 1.5 % (0.0-2.0); EOSINOPHIL # 0.3 TH/MM3 (0-0.4); EOSINOPHIL % 4.2 % (0.0-4.0); HEMO FLAGS DIFF FINAL; LYMPH % 27.9 % (9.0-44.0); MEAN CELL VOLUME 90.1 FL (80.0-100.0); MEAN CORPUSCULAR HEMOGLOBIN 30.3 PG (27.0-34.0); MEAN CORPUSCULAR HGB CONC 33.7 % (32.0-36.0); MONO % 6.9 % (0.0-8.0); NEUT % 59.5 % (16.0-70.0); PLATELET COUNT 326 TH/MM3 (150-450); RED BLOOD COUNT 4.33 MIL/MM3 (4.00-5.30); WHITE BLOOD COUNT 7.1 TH/MM3 (4.0-11.0)
[2016-12-01 20:11] LABS: AMPHETAMINE, URINE NEG (NEG); BARBITURATES, URINE NEG (NEG); COCAINE, URINE NEG (NEG)
[2016-12-01 20:16] LABS: APTT (PATIENT) 30.6 SEC (24.3-30.1); INTERNATIONAL NORMALIZED RATIO 1.1 RATIO; PROTHROMBIN TIME - PATIENT 11.7 SEC (9.8-11.6)
[2016-12-01 20:21] LABS: ALT (GPT) 44 U/L (10-53)
[2016-12-01 20:22] LABS: ANION GAP 9 MEQ/L (5-15); AST (GOT) 61 U/L (15-37); BICARBONATE 23.2 MEQ/L (21.0-32.0); BLOOD UREA NITROGEN 13 MG/DL (7-18); CHLORIDE 100 MEQ/L (98-107); GLOMERULAR FILTRATION RATE 68 ML/MIN (>89); MAGNESIUM 2.1 MG/DL (1.5-2.5); POTASSIUM 3.9 MEQ/L (3.5-5.1); SODIUM (NA) 132 MEQ/L (136-145)
[2016-12-01 20:29] LABS: ALKALINE PHOSPHATASE 109 U/L (45-117); CREATINE KINASE 443 U/L (26-192); TOTAL BILIRUBIN ADULT 0.8 MG/DL (0.2-1.0)
[2016-12-01 20:49] LABS: CKMB 9.8 NG/ML (0.5-3.6)
[2016-12-01 21:00] VITALS: BP 129/75; PULSE 54; RESP 17; O2SAT 100
[2016-12-01] MEDS ORDERED: IOHEXOL 350 MG/ML 10 ML VIAL (for RAD DIAG) IV ONE (21:21)
--- NOTE | 2016-12-01 21:23 | RADRPT ---
EXAM DATE/TIME: 12/01/2016 21:16 [facility] COMPARISON: CT BRAIN W/O CONTRAST, December 06, 2015, 12:17. INDICATIONS : Altered mental status. RADIATION DOSE: 45.82 CTDIvol (mGy) MEDICAL HISTORY : Cardiovascular disease. Hypertension. Carcinoma, bladder. SURGICAL HISTORY : None. ENCOUNTER: Initial ACUITY: 1 day PAIN SCALE: Non-responsive LOCATION: cranial TECHNIQUE: Multiple contiguous axial images were obtained of the head. Using automated exposure control and adj ustment of the mA and/or kV according to patient size, radiation dose was kept as low as reasonably a chievable to obtain optimal diagnostic quality images. DICOM format image data is available electro nically for review and comparison. FINDINGS: CEREBRUM: The ventricles are normal for age. No evidence of midline shift, mass lesion, hemorrhage or acute in farction. No extra-axial fluid collections are seen. POSTERIOR FOSSA: The cerebellum and brainstem are intact. The 4th ventricle is midline. The cerebellopontine angle i s unremarkable. EXTRACRANIAL: The visualized portion of the orbits is intact. SKULL: The calvaria is intact. No evidence of skull fracture. CONCLUSION: Negative for an acute process. Arik Ly MD FACR on December 01, 2016 at 21:20 Board Certified Radiologist. This report was verified electronically.
--- NOTE | 2016-12-01 21:48 | RADRPT ---
EXAM DATE/TIME: 12/01/2016 21:21 [facility] COMPARISON: No previous studies available for comparison. INDICATIONS : Abdomen pain. IV CONTRAST: 60 cc Omnipaque 350 (iohexol) IV ORAL CONTRAST: No oral contrast ingested. RADIATION DOSE: 7.55 CTDIvol (mGy) MEDICAL HISTORY : Cardiovascular disease. Hypertension. Carcinoma, bladder. SURGICAL HISTORY : None. ENCOUNTER: Initial ACUITY: 1 day PAIN SCALE: Non-responsive LOCATION: abdomen TECHNIQUE: Volumetric scanning of the abdomen and pelvis was performed. Using automated exposure control and ad justment of the mA and/or kV according to patient size, radiation dose was kept as low as reasonably achievable to obtain optimal diagnostic quality images. DICOM format image data is available electro nically for review and comparison. FINDINGS: LOWER LUNGS: The visualized lower lungs are clear. LIVER: Homogeneous density without lesion. There is no dilation of the biliary tree. SPLEEN: Is not visualized. PANCREAS: Normal without calcifications. ADRENAL GLANDS: Within normal limits.. KIDNEYS: Normal in size and shape. There is no mass, stone or hydronephrosis. CECUM: There are no inflammatory changes BOWEL/MESENTERY: The stomach, small bowel, and colon demonstrate no acute abnormality. There is no free intraperitone al air or fluid. ABDOMINAL WALL: Within normal limits. RETROPERITONEUM: There is no lymphadenopathy. PELVIS: There is no adnexal mass or inflammatory changes.. INGUINAL: There is no lymphadenopathy or hernia. MUSCULOSKELETAL: Within normal limits for patient age. CONCLUSION: Examination is severely limited bilateral body fat and habitus. There is no free air there is no abnormal mass. Pneumatocele fracture. I do not see etiology for the severe abdominal p ain. Arik Ly MD FACR on December 01, 2016 at 21:44 Board Certified Radiologist. This report was verified electronically.
[2016-12-01] MEDS ORDERED: MAGNESIUM HYDROXIDE SUSP 30 ML CUP PO PRN (22:45)
[2016-12-01] MEDS ORDERED: SENNOSIDES 8.6 MG TAB PO PRN (22:45)
[2016-12-01] MEDS ORDERED: SODIUM CHLORIDE 0.9% FLUSH 10 ML FLUSH IV FLUSH PRN (22:45)
[2016-12-01] MEDS ORDERED: BISACODYL 10 MG SUPP RECTAL PRN (22:45)
[2016-12-01] MEDS ORDERED: GLUCAGON 1 MG/ML VIAL IM PRN (22:45)
[2016-12-01] MEDS ORDERED: DEXTROSE 50% IN WATER 50 ML VIAL(D50) IV PRN (22:45)
[2016-12-01] MEDS ORDERED: NALOXONE HCL 0.4 MG/ML AMP IV PRN (22:45)
[2016-12-01] MEDS ORDERED: LACTULOSE SYRUP 20 GM/30 ML CUP PO PRN (22:45)
[2016-12-01] MEDS: D5-1/2 NS + KCL 20 MEQ INJ 1,000 ML IV SCH (23:03)
[2016-12-02] VITALS (10 sets, daily range): BP systolic 88–157; BP diastolic 50–84; PULSE 40–72; RESP 16–19; TEMP 97–97.6; O2SAT 96–100
[2016-12-02 00:03] LABS: FREE T3 LESS THAN 0.50 PG/ML (2.18-3.98); FREE T4 0.14 NG/DL (0.76-1.46)
[2016-12-02] MEDS ORDERED: GLUCAGON 1 MG/ML VIAL OTHER PRN (00:45)
[2016-12-02] MEDS ORDERED: DEXTROSE 50% IN WATER 50 ML VIAL(D50) IV PUSH PRN (00:45)
[2016-12-02] MEDS: LOW DOSE INSULIN NOVOLOG SUPPLEMENTAL SCALE SQ SCH ×4 (06:21→21:00)
[2016-12-02] MEDS ORDERED: LEVOTHYROXINE SODIUM 100 MCG TAB PO SCH (07:00)
[2016-12-02] MEDS: LEVOTHYROXINE SODIUM 100 MCG TAB PO SCH (08:00)
[2016-12-02] MEDS: SODIUM CHLORIDE 0.9% FLUSH 10 ML FLUSH IV FLUSH SCH ×2 (09:00→21:29)
[2016-12-02] MEDS: DILTIAZEM-CD 180 MG CAP ER PO SCH (09:15)
[2016-12-02] MEDS: D5-1/2 NS + KCL 20 MEQ INJ 1,000 ML IV SCH (09:16)
[2016-12-02] MEDS: SULFAMETHOXAZOLE-TRIMETHOPRIM DS 800-160 MG TAB PO SCH ×2 (09:43→21:28)
[2016-12-02] MEDS ORDERED: LEVOTHYROXINE SODIUM 50 MCG TAB PO ONE (10:00)
[2016-12-02] MEDS: DOCUSATE SODIUM 50 MG/SENNA 8.6 MG TAB PO SCH ×2 (10:01→21:00)
--- NOTE | 2016-12-02 10:14 | MH ---
cc: SARKIS AMOR MD DATE OF ADMISSION: 12/01/2016 DATE OF 1940 CHIEF COMPLAINT Altered mental status. TRAVEL IN THE LAST 30 DAYS None. HISTORY OF PRESENT ILLNESS This is a 76-year-old white female who was brought to the hospital this past p.m. with altered mental status. Family state that the patient was fine before noon but when she checked on her again she began intermittently screaming out, not answering questions and appeared to be stinging. EMS was called. The patient was not brought in by family. Information was being given by family. The patient was brought to the emergency room per ambulance service for further evaluation. Currently the patient is extremely altered with her mental status. She is experiencing some delusions and delirium. She also is having some paranoia. There is no family present. Limited assessment has been completed. The patient physically grabbed a hold of both my hands and would not let go. She is screaming out, delusions of people being after her and not being in the safe zone. Information is being gathered from her record. MEDICAL HISTORY 1. Atrial fibrillation. 2. History of bladder cancer. 3. Hyperlipidemia. 4. Hypertension. 5. Hypothyroid disorder. 6. Bowel obstruction. 7. Arthritis. 8. Anxiety depression. 9. Skin cancer. 10. CVA. 11. Hematuria. 12. Arthritis. 13. 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 14. Anxiety disorder. 15. Thyroid disease. 16. Hyperlipidemia. 17. GI obstruction. PAST SURGICAL HISTORY 1. Splenectomy. 2. Bilateral cataracts. 3. Total abdominal hysterectomy with ovaries removed. 4. Bilateral leg surgery. 5. Oral surgery. SOCIAL HISTORY The patient is a wine drinker, 1/2-pack a day smoker. No other illicit drugs noted. I do not know her living status but there is family that assists in monitoring her. ALLERGIES MDRO drug resistant organisms. MEDICATIONS RECENTLY ACTIVE 1. Bactrim for a UTI. 2. Cardizem . 3. Coumadin. 4. Synthroid. 5. Ditropan. REVIEW OF SYSTEMS Unable to evaluate her systems. Information gathered from my assessment or in the HPI. PHYSICAL EXAMINATION VITAL SIGNS: Temperature is 97.3, pulse 61, respirations 19, blood pressure 137/75. High noted once 157/84 as little after midnight last night, O2 sat at 100, O2 is at 2 liters. GENERAL: A thin, frail white female who looks older than her stated age, crying screaming out, delusional. SKIN: Tough, very dry. Extremities are warm. HEAD, EYES, EARS, NOSE, AND THROAT: Atraumatic, normocephalic. NECK: Thin. CARDIOVASCULAR: Heart sounds S1, S2. Heart rate labile, low noted 54, high noted 94 on admission, currently 61. EXTREMITIES: She has no edema. Lower extremities are warm. SKIN: Very touch and thick. LUNGS: No audible rhonchi or wheezing. No rales heard. ABDOMEN: Flat, soft, nontender, nondistended. MUSCULOSKELETAL: She is moving her upper extremities randomly. Unable to assess lower extremities except for there is movement. NEUROLOGIC: Inappropriate behavior with screaming out in confusion. Does not understand where she is or what is going on. PSYCHIATRIC: Inappropriate mood and affect. DIAGNOSTIC DATA WBC 7.1, RBC 4.33, hemoglobin 13.1, hematocrit 39, platelet count 326, RDW 18, eosinophils 4.2 on the differential. PT/INR 1.1. Chemistry: sodium 132, potassium 3.9, chloride 100, carbon dioxide 23.2, anion gap 9, BUN 13, creatinine 0.82, GFR 68 and glucose was 70. Abnormals - AST 61, total creatinine kinase 443, ammonia level 25, CK-MB 9. Troponin less than 0.02. BNP 157, total protein 8.1, albumin 3.8, lipase 90, TSH greater than 100. T3 less than 0.50. Free T4 0.14. Toxicology negative for opiates, barbiturates, amphetamines, benzos, cocaine, cannabis. Less than 3 on alcohol. Urine is light yellow and clear, specific gravity 1.004, pH is 7,trace of occult blood and negative for protein, glucose, ketones, nitrites, bilirubin and leukocyte esterasse. Culture is not indicated. CHEST X-RAY Normal exam. HEAD CT Negative for any acute process. ABDOMEN AND PELVIS CT Limited body fat and habitus. No free air. No abnormal mass, pneumatocele or fracture. I do not see etiology for severe abdominal pain. ASSESSMENT AND PLAN 1. Hypothyroidism, severe. 2. Delirium with altered mental status. 3. Recent UTI. 4. Metabolic encephalopathy. 5. History of bladder cancer. 6. History of bradycardia, drug-induced. 7. History of a fibrillation with RVR. 8. Anxiety disorder. Out plan is to admit the patient in the emergency room. Proceed with normal saline bolus. She also has IV fluids for hydration. She is receiving now. She is on continuous cardiac monitoring and being managed very intently for her safety. She has tried to get out of the bed multiple problems and is delirious at this point with her behavior. SCDs have been ordered. Medications have been reviewed. The patient has received levothyroxine and her Cardizem We will monitor her bowel regimen. The patient has been on Coumadin for her history of atrial fibrillation. We will ask the Pharmacy to assist in her monitoring of PT/INR. Due to patient's extreme encephalopathy and altered mental status, we will have Psych evaluate for some assistance in her medical management until she has stabilized. There is no family present. There has been a sister to call and check on her this a.m., according to the staff. We will continue to attempt to stabilize the patient and we will discuss a plan of care wit her family. Dictated by: ESTHER Bolanos MD RANDY Yun/DIANDRA /9:27 AM /9:52 AM
[2016-12-02] MEDS ORDERED: HALOPERIDOL LACTATE 5 MG/ML AMP IM PRN (10:15)
[2016-12-02 11:05] LABS: AUTOMATED NEUTROPHIL # 4.6 TH/MM3 (1.8-7.7); BASOPHIL # 0.1 TH/MM3 (0-0.2); BASOPHIL % 1.9 % (0.0-2.0); EOSINOPHIL # 0.2 TH/MM3 (0-0.4); EOSINOPHIL % 3.2 % (0.0-4.0); HEMATOCRIT 39.3 % (35.0-46.0); HEMO FLAGS DIFF FINAL; LYMPH % 21.4 % (9.0-44.0); LYMPHOCYTE # 1.6 TH/MM3 (1.0-4.8); MEAN CELL VOLUME 91.6 FL (80.0-100.0); MEAN CORPUSCULAR HEMOGLOBIN 30.1 PG (27.0-34.0); MEAN CORPUSCULAR HGB CONC 32.8 % (32.0-36.0); MONO % 10.7 % (0.0-8.0); NEUT % 62.8 % (16.0-70.0); PLATELET COUNT 278 TH/MM3 (150-450); RED BLOOD COUNT 4.29 MIL/MM3 (4.00-5.30); RED CELL DISTRIBUTION WIDTH 18.5 % (11.6-17.2); WHITE BLOOD COUNT 7.4 TH/MM3 (4.0-11.0)
--- NOTE | 2016-12-02 11:33 | EKG ---
Date Performed: 12/01/2016 Time Performed: 19:07:46 PTAGE: 76 years EKG: ATRIAL FIBRILLATION WITH RAPID VENTRICULAR RESPONSE MARKED LEFT AXIS DEVIATION LOW QRS VOLT AGE IN EXTREMITY LEADS SEPTAL MYOCARDIAL INFARCTION POSSIBLE INFERIOR MYOCARDIAL INFARCTION ABNORMAL ECG PREVIOUS TRACING : 08/01/2016 19.00 Compared to the prior tracing, deep T-wave inversions have resolved. Clinical correlation needed. DOCTOR: Jose Young Interpretating Date/Time 12/02/2016 11:32:57
[2016-12-02 12:10] LABS: ANION GAP 8 MEQ/L (5-15); BICARBONATE 22.1 MEQ/L (21.0-32.0); BLOOD UREA NITROGEN 8 MG/DL (7-18); CHLORIDE 101 MEQ/L (98-107); GLOMERULAR FILTRATION RATE 79 ML/MIN (>89); POTASSIUM 3.8 MEQ/L (3.5-5.1); SODIUM (NA) 131 MEQ/L (136-145)
[2016-12-02] MEDS: LORazepam 2 MG/ML VIAL IV PUSH PRN (14:28)
--- NOTE | 2016-12-02 14:50 | PD.PSY.CON ---
Provisional Diagnosis Admission Date Dec 01, 2016 at 22:18 [place]. Delirium due to underlying medical conditions History of Present Illness Service Psychiatry Consult Requested By Primary Care Physician Rosario Cristina M.D. HPI The patient is a 76 year old woman, with psychiatric history of anxiety, no documented history of psychiatric hospitalization or suicide attempts, medical history of A. fib, bladder cancer, HTN, hypothyroidism, arthritis, who presents to the [facility] emergency department with a history of being noted by a family member to have altered mentation prior to arrival. The patient was last seen normal before noon by her sister who is health care by proxy. The patient was noted to be stinging, intermittently screaming out and not answering questions appropriately according to her family member. She was brought in by ambulance services. No family member is available at the bedside at this time. Patient was found to have a mild UTI, mild hyponatremia, Severe hypothyroidism. CT scan is negative, rest of labs are unremarkable. On psychiatric evaluation patient is completely disoriented, illogical, no making any sense, talking to herself, with very poor attention span, no following commands. Patient is unable to provide any significant information for the psychiatric assessment at this moment. No collateral information available right now. 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) Active Scripts Sulfamethoxazole-Trimethoprim (Bactrim DS)800-160 Mg Tab1 Tab PO BID #10 TAB Ref 0 Prov:Jeovany Cantu DO 10/15/16 Diltiazem CD 24 HR (Cardizem CD 24 HR)180 Mg [id number] Mg PO DAILY #30 CAP Prov:Sherri Tovar MD 08/06/16 Reported Medications Warfarin 5 Mg Tab5 Mg PO DAILY #30 TAB Ref 0 10/15/16 Levothyroxine (Synthroid)100 Mcg [id number] Mcg PO DAILY #30 TAB Ref 0 04/02/16 Oxybutynin (Ditropan)5 Mg Tab5 Mg PO BID #60 TAB Ref 0 04/02/16 Current Medications Medications (Trade) Dose Ordered Sig/Alisha Route Start Time Stop Time Status Last Admin (Cardizem Cd) 180 mg DAILY PO 12/02/16 09:00 12/02/16 09:15 (Bactrim Ds 800-160 Mg) 1 tab BID PO 12/02/16 09:00 12/02/16 09:43 Warfarin Sodium 5 mg 5 mg DAILY@16 PO 12/02/16 16:00 (D5-1/2 NS + KCl 20 Meq Inj) 1,000 ml @ 100 mls/hr Q10H IV 12/01/16 22:38 12/02/16 09:16 (NS Flush) 2 ml UNSCH PRN IV FLUSH 12/01/16 22:45 (NS Flush) 2 ml BID IV FLUSH 12/02/16 09:00 (Narcan Inj) 0.4 mg UNSCH PRN IV 12/01/16 22:45 (Aida-Colace) 1 tab BID PO 12/02/16 09:00 12/02/16 10:01 (Milk Of Magnesia Liq) 30 ml Q12H PRN PO 12/01/16 22:45 (Senokot) 17.2 mg Q12H PRN PO 12/01/16 22:45 (Dulcolax Supp) 10 mg DAILY PRN RECTAL 12/01/16 22:45 (Lactulose Liq) 30 ml DAILY PRN PO 12/01/16 22:45 (D50w (Vial) Inj) 25 ml UNSCH PRN IV PUSH 12/02/16 00:45 (Glucagon Inj) 1 mg UNSCH PRN OTHER 12/02/16 00:45 (Synthroid) 150 mcg DAILY@07 PO 12/02/16 07:00 (Haldol Inj) 2 mg Q3HR PRN IM 12/02/16 10:15 (Ativan Inj) 0.5 mg Q4H PRN IV PUSH 12/02/16 10:30 12/02/16 14:28 Physical Exam Vital Signs Vital Signs Date Time Temp Pulse Resp B/P Pulse Ox O2 Delivery O2 Flow Rate FiO2 12/02/16 11:38 97.0 72 18 135/77 97 12/02/16 00:38 Nasal Cannula 2 Mental Status Examination Limited due to the lack of cooperation Appearance Elderly woman, age appearing, good hygiene, non-cooperative, hopeless disoriented and illogical Assessment & Plan Problem List: (1) Delirium due to another medical condition Assessment & Plan: At the moment of this psychiatric evaluation patient is non- cooperative, with visible altered mental status, illogical, disorganized, perseverating, no following commands, unable to provide any meaningful information for the psychiatric valuation. Patient is definitely delirious. Beginning of progression of altered mental status as per documentation is far from baseline and very acute. Current presentation seems to be consistent with delirium most probably due to underlying medical condition, in this case severe hypothyroidism, hyponatremia, UTI. This condition has been treated by primary medical team already. If current mental status persist beyond medical clearance , patient might benefit of low-dose of antipsychotics. Since patient is not agitated or aggressive at this moment no when necessary IM antipsychotics are recommended. We will follow up. ICD Code: F05 Assessment & Plan Estimated LOS: days Travis Fernandez MD Dec 02, 2016 14:50
[2016-12-02] MEDS ORDERED: ALBUMIN HUMAN 25% 25 GM/100 ML BAGP IV ONE (18:00)
--- NOTE | 2016-12-02 18:15 | HP.UPD ---
H&P Update Note seen, examined by myself, Dr Browne, today 12/02/16 Discussed with patient's sister, the patient CODE STATUS is DNR Acute encephalopathy/delirium, uncontrolled hypothyroidism, patient has not been taking her thyroid medications, History of atrial fibrillation The patient went into hypotension and bradycardia later this afternoon Difficult to obtain an accurate electrocardiogram because of her thrashing around However difficult to see clear-cut P waves Case discussed with the patient's fourdrinier machine tender Dr. Fay We will keep the patient well hydrated Give intravenous albumin Stop Cardizem Give calcium gluconate Give IV levothyroxine Monitor in ICU Keep pacer pads on the chest wall Discussed with nurse several times a day Condition critical Discussed with mid level provider The exam, history, and the medical decision-making described in the above note were completed with the assistance of the mid-level provider. I reviewed the findings presented. I attest that I had a [id number] encounter with the patient on the same day, and personally performed and documented my assessment and findings in the medical record. Fady Browne MD Dec 02, 2016 18:12
[2016-12-02] MEDS: WARFARIN SOD 5 MG TAB PO SCH (18:55)
[2016-12-02] MEDS ORDERED: LEVOTHYROXINE SODIUM 100 MCG VIAL IV PUSH ONE (19:00)
[2016-12-02] MEDS ORDERED: SODIUM CHLOR 0.9% 1000 ML INJ 1,000 ML IV ONE (19:00)
[2016-12-02] MEDS ORDERED: CALCIUM GLUCONATE INJ 1 GM in SODIUM CHLORIDE 0.9% INJ 100 ML IV ONE (20:00)
[2016-12-02] MEDS ORDERED: CHLORHEXIDINE GLUCONATE 2 % 1 PACK (2 CLOTHS)(extra cloths) TOPICAL PRN (20:45)
--- NOTE | 2016-12-02 21:43 | EKG ---
Date Performed: 12/02/2016 Time Performed: 17:49:44 PTAGE: 76 years EKG: ATRIAL FIBRILLATION WITH SLOW VENTRICULAR RESPONSE MARKED LEFT AXIS DEVIATION LOW QRS VOLTA GE IN EXTREMITY LEADS SEPTAL MYOCARDIAL INFARCTION MODERATE T-WAVE ABNORMALITY ABNORMAL ECG PREVIOUS TRACING : 12/01/2016 19.07 Compared to prior tracing no significant change DOCTOR: Jania Fay Interpretating Date/Time 12/02/2016 21:42:09
--- NOTE | 2016-12-02 21:51 | EKG ---
Date Performed: 12/02/2016 Time Performed: 16:06:44 PTAGE: 76 years EKG: ATRIAL FIBRILLATION MARKED RIGHT AXIS DEVIATION LOW QRS VOLTAGE IN EXTREMITY LEADS SEPTAL M YOCARDIAL INFARCTION MODERATE T-WAVE ABNORMALITY ABNORMAL ECG Compared to the PREVIOUS TRACING rate slower DOCTOR: Jania Fay Interpretating Date/Time 12/02/2016 21:50:23
[2016-12-03] VITALS (13 sets, daily range): BP systolic 92–144; BP diastolic 53–83; PULSE 40–129; RESP 13–30; TEMP 97.2–98.1; O2SAT 89–98
[2016-12-03 01:42] LABS: ANION GAP 8 MEQ/L (5-15); BICARBONATE 20.2 MEQ/L (21.0-32.0); BLOOD UREA NITROGEN 5 MG/DL (7-18); CHLORIDE 106 MEQ/L (98-107); GLOMERULAR FILTRATION RATE 105 ML/MIN (>89); MAGNESIUM 1.8 MG/DL (1.5-2.5); POTASSIUM 3.6 MEQ/L (3.5-5.1); SODIUM (NA) 134 MEQ/L (136-145)
[2016-12-03 02:02] LABS: CALCIUM-PROTEIN CORRECTED 7.2 MG/DL (8.5-10.1)
[2016-12-03] MEDS: D5-1/2 NS + KCL 20 MEQ INJ 1,000 ML IV SCH ×2 (03:04→14:17)
[2016-12-03] MEDS: CHLORHEXIDINE GLUCONATE 2 % 1 PACK (2 CLOTHS)(taper/protocol) TOPICAL SCH (04:00)
[2016-12-03] MEDS ORDERED: POTASSIUM PHOSPHATE INJ 30 MMOL in SODIUM CHLOR 0.9% 250 ML INJ 250 ML IV ONE (05:00)
[2016-12-03] MEDS ORDERED: CALCIUM GLUCONATE INJ 1 GM in SODIUM CHLORIDE 0.9% INJ 100 ML IV ONE (05:00)
[2016-12-03 06:38] LABS: AUTOMATED NEUTROPHIL # 3.9 TH/MM3 (1.8-7.7); BASOPHIL # 0.1 TH/MM3 (0-0.2); BASOPHIL % 1.9 % (0.0-2.0); EOSINOPHIL # 0.2 TH/MM3 (0-0.4); EOSINOPHIL % 3.4 % (0.0-4.0); HEMATOCRIT 34.5 % (35.0-46.0); HEMO FLAGS DIFF FINAL; LYMPH % 21.9 % (9.0-44.0); LYMPHOCYTE # 1.4 TH/MM3 (1.0-4.8); MEAN CELL VOLUME 91.6 FL (80.0-100.0); MEAN CORPUSCULAR HEMOGLOBIN 29.6 PG (27.0-34.0); MEAN CORPUSCULAR HGB CONC 32.4 % (32.0-36.0); MONO % 9.2 % (0.0-8.0); NEUT % 63.6 % (16.0-70.0); PLATELET COUNT 249 TH/MM3 (150-450); RED BLOOD COUNT 3.77 MIL/MM3 (4.00-5.30); RED CELL DISTRIBUTION WIDTH 18.4 % (11.6-17.2); WHITE BLOOD COUNT 6.2 TH/MM3 (4.0-11.0)
[2016-12-03] MEDS: DILTIAZEM-CD 180 MG CAP ER PO SCH (08:08)
[2016-12-03] MEDS: LOW DOSE INSULIN NOVOLOG SUPPLEMENTAL SCALE SQ SCH ×4 (08:08→21:00)
[2016-12-03] MEDS: SULFAMETHOXAZOLE-TRIMETHOPRIM DS 800-160 MG TAB PO SCH ×2 (08:19→21:36)
[2016-12-03] MEDS: SODIUM CHLORIDE 0.9% FLUSH 10 ML FLUSH IV FLUSH SCH ×2 (08:19→21:36)
[2016-12-03] MEDS: DOCUSATE SODIUM 50 MG/SENNA 8.6 MG TAB PO SCH ×2 (08:19→21:36)
[2016-12-03] MEDS: LEVOTHYROXINE SODIUM 100 MCG TAB PO SCH (08:19)
[2016-12-03] MEDS ORDERED: CALCIUM GLUCONATE INJ 2 GM in SODIUM CHLORIDE 0.9% INJ 100 ML IV ONE (10:00)
[2016-12-03 15:00] LABS: CREATINE KINASE 463 U/L (26-192)
[2016-12-03 15:12] LABS: CKMB 11.4 NG/ML (0.5-3.6)
[2016-12-03] MEDS: WARFARIN SOD 5 MG TAB PO SCH (16:42)
--- NOTE | 2016-12-03 17:42 | HHI.PR ---
Subjective Interval History Alert, verbal, more appropriate today, wants to go home Review of Systems Constitutional Constitutional Remarks 10 systems review is otherwise negative Vitals/Results Intake & Output 12/02/16 12/02/16 12/03/16 15:00 23:00 07:00 Intake Total 2745 ml 933 ml Output Total 1500 ml 575 ml Balance 1245 ml 358 ml IV Total 2745 ml 933 ml Output Urine Total 1500 ml 575 ml # Bowel Movements 0 Vital Signs Vital Signs Date Time Temp Pulse Resp B/P Pulse Ox O2 Delivery O2 Flow Rate FiO2 12/03/16 16:00 97.7 129 20 136/83 95 12/03/16 16:00 82 12/03/16 14:00 69 12/03/16 12:00 63 12/03/16 12:00 97.5 89 30 136/66 94 12/03/16 10:00 76 12/03/16 08:00 56 12/03/16 08:00 97.9 52 15 107/53 96 Manual Cuff/Auscultation 12/03/16 06:00 42 12/03/16 04:00 41 12/03/16 04:00 97.5 41 13 92/53 97 12/03/16 02:00 40 12/03/16 00:01 97.2 65 27 144/82 89 12/03/16 00:00 66 12/02/16 22:00 40 12/02/16 20:00 97.6 46 18 119/62 96 12/02/16 20:00 46 CBC/BMP: 12/03/16 0542 12/03/16 0020 Lab Results Laboratory Tests Test 12/02/16 12/03/16 12/03/16 12/03/16 19:40 00:20 05:42 13:04 Nasal Screen MRSA (PCR) MRSA NOT DETECTED Sodium Level 134 MEQ/L Potassium Level 3.6 MEQ/L Chloride Level 106 MEQ/L Carbon Dioxide Level 20.2 MEQ/L Anion Gap 8 MEQ/L Blood Urea Nitrogen 5 MG/DL Creatinine 0.56 MG/DL Estimat Glomerular Filtration 105 ML/MIN Rate Random Glucose 60 MG/DL Calcium Level 7.0 MG/DL Protein Corrected Calcium 7.2 MG/DL Phosphorus Level 1.2 MG/DL Magnesium Level 1.8 MG/DL Troponin I LESS THAN 0.02 LESS THAN 0.02 LESS THAN 0.02 NG/ML NG/ML NG/ML Total Protein 6.8 GM/DL White Blood Count 6.2 TH/MM3 Red Blood Count 3.77 MIL/MM3 Hemoglobin 11.2 GM/DL Hematocrit 34.5 % Mean Corpuscular Volume 91.6 FL Mean Corpuscular Hemoglobin 29.6 PG Mean Corpuscular Hemoglobin 32.4 % Concent Red Cell Distribution Width 18.4 % Platelet Count 249 TH/MM3 Mean Platelet Volume 9.0 FL Neutrophils (%) (Auto) 63.6 % Lymphocytes (%) (Auto) 21.9 % Monocytes (%) (Auto) 9.2 % Eosinophils (%) (Auto) 3.4 % Basophils (%) (Auto) 1.9 % Neutrophils # (Auto) 3.9 TH/MM3 Lymphocytes # (Auto) 1.4 TH/MM3 Monocytes # (Auto) 0.6 TH/MM3 Eosinophils # (Auto) 0.2 TH/MM3 Basophils # (Auto) 0.1 TH/MM3 CBC Comment DIFF FINAL Differential Comment Total Creatine Kinase 463 U/L Creatine Kinase MB 11.4 NG/ML Creatine Kinase MB % 2.5 % Physical Exam General General Appearance: Well Developed, Anxious Eyes Eye Exam: Pupils Reactive Ears & Nose Ears & Nose Exam: Nasal Mucosa [place] Throat Throat Exam: Oral Mucosa [place] & Moist Neck Neck Exam: Trachea Midline Pulmonary Resp Exam: Breath Sounds Equal Cardiology CV Exam: Normal Sinus Rhythm, Good Perfusion Gastrointestinal/Abdomen GI Exam: Non-Tender, Bowel Sounds Present Musculoskeletal MS Exam: Normal Tone Integumentary Skin Exam: Warm, Dry Neurologic Neuro Exam: Awake, Speech Clear, Moving All Extremities Neuro Remarks Mildly confused Assessment/Plan Assessment/Plan Assessment Symptomatic bradycardia, improved Hypotension, improved Hypoglycemia Uncontrolled severe hypothyroidism Acute metabolic encephalopathy on admission, improved Hypocalcemia, replaced Hypophosphatemia, replaced Management Switch IV fluids to 10% dextrose half-normal saline Continue telemetry Cardiology consultation Keep off Cardizem at this time Replace calcium keep above 8 Replace phosphate DNR Discussed with patient Discussed with nurse 35 minutes Fady Browne MD Dec 03, 2016 17:42
[2016-12-03] MEDS ORDERED: SODIUM CHLORIDE 23.4% INJ 77 MEQ in DEXTROSE 10% INJ 1,000 ML IV SCH (21:00)
[2016-12-04] VITALS (18 sets, daily range): BP systolic 106–172; BP diastolic 56–112; PULSE 55–150; RESP 15–28; TEMP 97.5–98.1; O2SAT 95–100
[2016-12-04] MEDS: CHLORHEXIDINE GLUCONATE 2 % 1 PACK (2 CLOTHS)(taper/protocol) TOPICAL SCH (04:00)
[2016-12-04] MEDS: LOW DOSE INSULIN NOVOLOG SUPPLEMENTAL SCALE SQ SCH ×4 (05:59→20:36)
[2016-12-04] MEDS: LEVOTHYROXINE SODIUM 100 MCG TAB PO SCH (05:59)
[2016-12-04 06:35] LABS: AUTOMATED NEUTROPHIL # 4.8 TH/MM3 (1.8-7.7); BASOPHIL # 0.1 TH/MM3 (0-0.2); EOSINOPHIL # 0.3 TH/MM3 (0-0.4); HEMATOCRIT 40.1 % (35.0-46.0); LYMPH % 14.6 % (9.0-44.0); LYMPHOCYTE # 1.1 TH/MM3 (1.0-4.8); MEAN CELL VOLUME 90.5 FL (80.0-100.0); MEAN CORPUSCULAR HGB CONC 33.1 % (32.0-36.0); MONO % 12.7 % (0.0-8.0); NEUT % 66.7 % (16.0-70.0); PLATELET COUNT 290 TH/MM3 (150-450); RED BLOOD COUNT 4.43 MIL/MM3 (4.00-5.30); RED CELL DISTRIBUTION WIDTH 18.6 % (11.6-17.2); WHITE BLOOD COUNT 7.2 TH/MM3 (4.0-11.0)
[2016-12-04 06:41] LABS: HEMO FLAGS AUTO DIFF
[2016-12-04 07:04] LABS: MAGNESIUM 1.8 MG/DL (1.5-2.5); POTASSIUM 3.6 MEQ/L (3.5-5.1)
--- NOTE | 2016-12-04 08:46 | PD.CARD.PN ---
Subjective Subjective Remarks No CP or SOB, HR nl Objective Medications Current Medications Medications (Trade) Dose Ordered Sig/Alisha Route Start Time Stop Time Status Last Admin (Bactrim Ds 800-160 Mg) 1 tab BID PO 12/02/16 09:00 12/03/16 21:36 (Coumadin) 5 mg DAILY@16 PO 12/02/16 16:00 12/03/16 16:42 (NS Flush) 2 ml UNSCH PRN IV FLUSH 12/01/16 22:45 (NS Flush) 2 ml BID IV FLUSH 12/02/16 09:00 12/03/16 21:36 (Narcan Inj) 0.4 mg UNSCH PRN IV 12/01/16 22:45 (Aida-Colace) 1 tab BID PO 12/02/16 09:00 12/03/16 21:36 (Milk Of Magnesia Liq) 30 ml Q12H PRN PO 12/01/16 22:45 (Senokot) 17.2 mg Q12H PRN PO 12/01/16 22:45 (Dulcolax Supp) 10 mg DAILY PRN RECTAL 12/01/16 22:45 (Lactulose Liq) 30 ml DAILY PRN PO 12/01/16 22:45 (D50w (Vial) Inj) 25 ml UNSCH PRN IV PUSH 12/02/16 00:45 (Glucagon Inj) 1 mg UNSCH PRN OTHER 12/02/16 00:45 (Synthroid) 150 mcg DAILY@07 PO 12/02/16 07:00 12/04/16 05:59 (Haldol Inj) 2 mg Q3HR PRN IM 12/02/16 10:15 12/02/16 23:59 (Ativan Inj) 0.5 mg Q4H PRN IV PUSH 12/02/16 10:30 12/02/16 14:28 Miscellaneous Information Patient in critical care unit? Ass... [id number] .XX 12/02/16 20:45 12/02/16 20:45 (Chlorhexidine 2% Cloth) 3 pack DAILY@04 TOPICAL 12/03/16 04:00 12/07/16 04:01 12/04/16 04:00 Chlorhexidine Gluconate 3 pack 3 pack UNSCH PRN TOPICAL 12/02/16 20:45 12/07/16 20:37 (Sodium Chloride 23.4% Inj/D10w Inj) 1,019.25 ml @ 75 mls/hr [id number] IV 12/03/16 21:00 12/03/16 21:37 Vital Signs / I&O Vital Signs Date Time Temp Pulse Resp B/P Pulse Ox O2 Delivery O2 Flow Rate FiO2 12/04/16 08:00 64 12/04/16 08:00 97.5 63 18 152/84 98 12/04/16 06:00 74 12/04/16 04:00 97.8 69 21 140/83 99 12/04/16 04:00 69 12/04/16 02:00 55 12/04/16 00:00 65 12/04/16 00:00 98.0 65 15 118/56 98 12/03/16 22:00 58 12/03/16 20:00 79 12/03/16 20:00 98.1 79 18 141/76 98 12/03/16 18:00 79 12/03/16 16:00 97.7 129 20 136/83 95 12/03/16 16:00 82 12/03/16 14:00 69 12/03/16 12:00 63 12/03/16 12:00 97.5 89 30 136/66 94 12/03/16 10:00 76 I/O 12/03/16 12/03/16 12/03/16 12/04/16 12/04/16 12/04/16 07:00 15:00 23:00 07:00 15:00 23:00 Intake Total 933 ml 1037 ml 269 ml 692 ml Output Total 575 ml 1650 ml 2550 ml 700 ml Balance 358 ml -613 ml -2281 ml -8 ml Intake Oral 500 ml 100 ml 240 ml IV Total 933 ml 537 ml 169 ml 452 ml Output Urine Total 575 ml 1650 ml 2550 ml 700 ml # Bowel Movements 3 1 Physical Exam GENERAL: In NAD SKIN: Warm and dry. HEAD: Normocephalic. EYES: No scleral icterus. No injection or drainage. NECK: Supple, trachea midline. No JVD or lymphadenopathy. CARDIOVASCULAR: Irregular rate and rhythm without murmurs, gallops, or rubs. RESPIRATORY: Breath sounds equal bilaterally. No accessory muscle use. GASTROINTESTINAL: Abdomen soft, non-tender, nondistended. MUSCULOSKELETAL: No cyanosis, or edema, indurated skin of LE. Laboratory Laboratory Tests Test 12/03/16 12/03/16 12/04/16 13:04 19:04 05:59 Total Creatine Kinase 463 U/L Creatine Kinase MB 11.4 NG/ML Creatine Kinase MB % 2.5 % Troponin I LESS THAN 0.02 NG/ML Calcium Level 8.3 MG/DL 8.4 MG/DL Phosphorus Level 2.4 MG/DL 1.7 MG/DL White Blood Count 7.2 TH/MM3 Red Blood Count 4.43 MIL/MM3 Hemoglobin 13.3 GM/DL Hematocrit 40.1 % Mean Corpuscular Volume 90.5 FL Mean Corpuscular Hemoglobin 30.0 PG Mean Corpuscular Hemoglobin 33.1 % Concent Red Cell Distribution Width 18.6 % Platelet Count 290 TH/MM3 Mean Platelet Volume 9.3 FL Neutrophils (%) (Auto) 66.7 % Lymphocytes (%) (Auto) 14.6 % Monocytes (%) (Auto) 12.7 % Eosinophils (%) (Auto) 4.0 % Basophils (%) (Auto) 2.0 % Neutrophils # (Auto) 4.8 TH/MM3 Lymphocytes # (Auto) 1.1 TH/MM3 Monocytes # (Auto) 0.9 TH/MM3 Eosinophils # (Auto) 0.3 TH/MM3 Basophils # (Auto) 0.1 TH/MM3 CBC Comment AUTO DIFF Sodium Level 129 MEQ/L Potassium Level 3.6 MEQ/L Chloride Level 98 MEQ/L Carbon Dioxide Level 23.0 MEQ/L Anion Gap 8 MEQ/L Blood Urea Nitrogen 7 MG/DL Creatinine 0.65 MG/DL Estimat Glomerular Filtration 88 ML/MIN Rate Random Glucose 105 MG/DL Magnesium Level 1.8 MG/DL Imaging Last Impressions Head CT 12/01/161920 Signed Impressions: Service Date/Time: Thursday, December 01, 2016 21:16 - CONCLUSION: Negative for an acute process. Arik Ly MD FACR Chest X-Ray 12/01/161920 Signed Impressions: Service Date/Time: Thursday, December 01, 2016 19:18 - CONCLUSION: No acute disease. Arik Ly MD FACR Abdomen/Pelvis CT 12/01/161920 Signed Impressions: Service Date/Time: Thursday, December 01, 2016 21:21 - CONCLUSION: Examination is severely limited bilateral body fat and habitus. There is no free air there is no abnormal mass. Pneumatocele fracture. I do not see etiology for the severe abdominal pain. Arik Ly MD FACR Assessment and Plan Problem List: (1) Bradycardia, drug induced (2) Atrial fibrillation with RVR (3) Altered mental status (4) Tobacco abuse (5) Bladder cancer (6) Anxiety (7) Delirium due to another medical condition Assessment and Plan No angina or CHF. HR now normalized p med adjustment. Continue monitoring. Increase activity, PT. No new cardiac issues. Problem Qualifiers (1) Altered mental status: Qualified Code: R41.0 - Delirium Jania Fay MD Dec 04, 2016 08:46
--- NOTE | 2016-12-04 08:48 | MB ---
cc: AJ LUCAS DATE OF CONSULTATION 12/03/2016 REASON FOR CONSULTATION Mrs. Olson is a 76-year-old white female known to me in our practice with history of atrial fibrillation, hypertension, dyslipidemia, and CVA. She was brought with altered mental status and was found to have significant bradycardia in the 30s. She has been on diltiazem which was discontinued with significant improvement of her heart rate. She denies any chest pain or shortness of breath. She is currently eating dinner. She had hallucinations yesterday which apparently are now improved. PAST MEDICAL HISTORY Positive for: 1. Atrial fibrillation 2. Dyslipidemia 3. Hypertension 4. CVA 5. Bladder cancer 6. Hypothyroidism 7. Bowel obstruction 8. Arthritis 9. Anxiety 10. Skin cancer 11. Hematuria 12. Arthritis 13. Left foot drop 14. Anxiety 15. History of splenectomy. 16. Cataract surgery 17. Hysterectomy 18. Oophorectomy 19. Leg surgery 20. Oral surgery. MEDICATIONS Include: 1. Ditropan 2. Synthroid 3. Coumadin 4. Bactrim 5. Diltiazem which is discontinued. ALLERGIES Known medical allergies. SOCIAL HISTORY The patient continues to smoke. She drinks wine. FAMILY HISTORY Negative for heart disease. REVIEW OF SYSTEMS Otherwise negative. PHYSICAL EXAMINATION VITAL SIGNS: Blood pressure was 136/83, pulse 79 and irregular. HEAD, EYES, EARS, NOSE, AND THROAT: Negative. 2+ carotid upstrokes. No bruits. LUNGS: Clear. HEART: Irregularly irregular with no murmur, gallop or rub. ABDOMEN: Soft, no bruits. EXTREMITIES: Without edema. There is thick indurated skin of both lower extremities. Diminished pulses. NEUROLOGIC: Grossly nonfocal. EKG was reviewed and showed atrial fibrillation with initial EKG showing atrial fibrillation with slow ventricular response with diffuse ST-T changes. Current EKG shows atrial fibrillation with ventricular response of 108 beats per minute and right R-wave progression in the epicardial leads and nonspecific STT changes LABORATORY DATA Hemoglobin 11.2, potassium 3.6, creatinine 0.16, troponin negative times three. TSH greater than 100. DIAGNOSIS 1. Atrial fibrillation with slow ventricular response. 2. Altered mental status 3. Severe hypothyroidism 4. Metabolic encephalopathy 5. Anxiety disorder 6. Hypertension 7. Dyslipidemia 8. History of CVA. DISPOSITION Ms. Olson will be monitored on telemetry. Her heart rate is now improved off Diltiazem. We may need to restart low dose Diltiazem if her heart rate stays elevated. She will be treated for her severe hypothyroidism. I recommended to her again to quit smoking. I will follow her for cardiology during this hospitalization. MD WALDEMAR Corcoran/HOSSEIN /7:43 PM /8:26 AM
[2016-12-04 09:00] LABS: OVALOCYTES 1+ (NORMAL); PLATELET MORPHOLOGY ENLARGED (NORMAL); TARGET CELLS 1+ (NORMAL); TOXIC VACUOLATION PRESENT (NONE SEEN)
[2016-12-04] MEDS: DOCUSATE SODIUM 50 MG/SENNA 8.6 MG TAB PO SCH ×2 (09:00→19:55)
[2016-12-04] MEDS: SODIUM CHLORIDE 0.9% FLUSH 10 ML FLUSH IV FLUSH SCH ×2 (09:00→19:55)
[2016-12-04] MEDS ORDERED: POTASSIUM PHOSPHATE INJ 30 MMOL in SODIUM CHLOR 0.9% 250 ML INJ 250 ML IV ONE (09:00)
[2016-12-04 09:05] LABS: BANDS 5 % (0-6); BASOPHILS 2 % (0-2); EOSINOPHILS 5 % (0-4); MYELOCYTES 1 % (0-0); POLYS (SEG NEUTROPHILS) 63 % (16-70); WBC DIFF SAMPLE 100
[2016-12-04 09:06] LABS: BURR CELLS 1+ (NORMAL); KERATOCYTES OCC (NORMAL)
[2016-12-04 09:08] LABS: PLATELET ESTIMATE SMEAR NORMAL (NORMAL); SCAN/DIFF FINAL DIFF MANUAL
[2016-12-04] MEDS: SULFAMETHOXAZOLE-TRIMETHOPRIM DS 800-160 MG TAB PO SCH ×2 (09:45→19:55)
[2016-12-04] MEDS: NS + KCL 20 MEQ INJ 1,000 ML IV SCH (09:46)
[2016-12-04] MEDS: WARFARIN SOD 5 MG TAB PO SCH (15:13)
[2016-12-04] MEDS ORDERED: DILTIAZEM HCL 30 MG TAB PO ONE (15:15)
--- NOTE | 2016-12-04 16:04 | HHI.PR ---
Subjective Interval History Alert, oriented 2, feels better, eating better, taking her medications according to the nurse, no chest pain, no difficulty breathing Review of Systems Constitutional Constitutional Remarks 10 systems review is otherwise negative Vitals/Results Intake & Output 12/03/16 12/03/16 12/04/16 15:00 23:00 07:00 Intake Total 1037 ml 269 ml 692 ml Output Total 1650 ml 2550 ml 700 ml Balance -613 ml -2281 ml -8 ml Intake Oral 500 ml 100 ml 240 ml IV Total 537 ml 169 ml 452 ml Output Urine Total 1650 ml 2550 ml 700 ml # Bowel Movements 3 1 Vital Signs Vital Signs Date Time Temp Pulse Resp B/P Pulse Ox O2 Delivery O2 Flow Rate FiO2 12/04/16 14:00 138 12/04/16 12:00 97.7 139 24 141/94 96 12/04/16 12:00 83 12/04/16 10:00 72 12/04/16 08:00 64 12/04/16 08:00 97.5 63 18 152/84 98 12/04/16 06:00 74 12/04/16 04:00 97.8 69 21 140/83 99 12/04/16 04:00 69 12/04/16 02:00 55 12/04/16 00:00 65 12/04/16 00:00 98.0 65 15 118/56 98 12/03/16 22:00 58 12/03/16 20:00 79 12/03/16 20:00 98.1 79 18 141/76 98 12/03/16 18:00 79 CBC/BMP: 12/04/16 0559 12/04/16 0559 Lab Results Laboratory Tests Test 12/03/16 12/04/16 12/04/16 19:04 05:59 13:35 Calcium Level 8.3 MG/DL 8.4 MG/DL Phosphorus Level 2.4 MG/DL 1.7 MG/DL White Blood Count 7.2 TH/MM3 Red Blood Count 4.43 MIL/MM3 Hemoglobin 13.3 GM/DL Hematocrit 40.1 % Mean Corpuscular Volume 90.5 FL Mean Corpuscular Hemoglobin 30.0 PG Mean Corpuscular Hemoglobin 33.1 % Concent Red Cell Distribution Width 18.6 % Platelet Count 290 TH/MM3 Mean Platelet Volume 9.3 FL Neutrophils (%) (Auto) 66.7 % Lymphocytes (%) (Auto) 14.6 % Monocytes (%) (Auto) 12.7 % Eosinophils (%) (Auto) 4.0 % Basophils (%) (Auto) 2.0 % Neutrophils # (Auto) 4.8 TH/MM3 Lymphocytes # (Auto) 1.1 TH/MM3 Monocytes # (Auto) 0.9 TH/MM3 Eosinophils # (Auto) 0.3 TH/MM3 Basophils # (Auto) 0.1 TH/MM3 CBC Comment AUTO DIFF Differential Total Cells 100 Counted Neutrophils % (Manual) 63 % Band Neutrophils % 5 % Lymphocytes % 17 % Monocytes % 7 % Eosinophils % 5 % Basophils % 2 % Neutrophils # (Manual) 5.0 TH/MM3 Myelocytes 1 % Differential Comment FINAL DIFF MANUAL Toxic Vacuolation PRESENT Platelet Estimate NORMAL Platelet Morphology Comment ENLARGED Target Cells 1+ Ovalocytes 1+ [place] Cells 1+ Keratocytes OCC Sodium Level 129 MEQ/L Potassium Level 3.6 MEQ/L Chloride Level 98 MEQ/L Carbon Dioxide Level 23.0 MEQ/L Anion Gap 8 MEQ/L Blood Urea Nitrogen 7 MG/DL Creatinine 0.65 MG/DL Estimat Glomerular Filtration 88 ML/MIN Rate Random Glucose 105 MG/DL Magnesium Level 1.8 MG/DL Random Cortisol 14.0 MCG/DL Physical Exam General General Appearance: Well Developed, Anxious Eyes Eye Exam: Pupils Reactive Ears & Nose Ears & Nose Exam: Nasal Mucosa [place] Throat Throat Exam: Oral Mucosa [place] & Moist Neck Neck Exam: Trachea Midline Pulmonary Resp Exam: Breath Sounds Equal Cardiology CV Exam: Normal Sinus Rhythm, Good Perfusion Gastrointestinal/Abdomen GI Exam: Non-Tender, Bowel Sounds Present Musculoskeletal MS Exam: Normal Tone Integumentary Skin Exam: Warm, Dry Neurologic Neuro Exam: Awake, Speech Clear, Moving All Extremities Neuro Remarks Mildly confused Assessment/Plan Assessment/Plan Assessment Tachycardic today Symptomatic bradycardia on admission, resolved Hypotension, improved Hypoglycemia, improved Hyponatremia Uncontrolled severe hypothyroidism Acute metabolic encephalopathy on admission, improved Hypocalcemia, replaced Hypophosphatemia, replaced Management Small dose Cardizem restarted by cardiology Switch IV fluids to normal saline Continue telemetry Discussed with Cardiology Follow electrolytes and Replace as indicated DNR Discussed with patient Discussed with nurse 35 minutes Discussed Condition with: Patient, Medical Consult Fady Browne MD Dec 04, 2016 16:04
[2016-12-04] MEDS: METOPROLOL TARTRATE 5 MG/5 ML VIAL IV PUSH PRN ×2 (16:07→23:01)
[2016-12-04] MEDS ORDERED: DILTIAZEM HCL 30 MG TAB PO SCH (18:00)
[2016-12-04] MEDS ORDERED: DILTIAZEM 125 MG/NS 100 ML IV SCH ×2 (18:45)
[2016-12-04 22:32] LABS: POTASSIUM 4.2 MEQ/L (3.5-5.1)
[2016-12-05] VITALS (13 sets, daily range): BP systolic 128–153; BP diastolic 66–88; PULSE 62–133; RESP 18–22; TEMP 98–98.6; O2SAT 97–99
[2016-12-05] MEDS: CHLORHEXIDINE GLUCONATE 2 % 1 PACK (2 CLOTHS)(taper/protocol) TOPICAL SCH (02:36)
[2016-12-05] MEDS: LOW DOSE INSULIN NOVOLOG SUPPLEMENTAL SCALE SQ SCH ×4 (06:28→19:40)
[2016-12-05] MEDS: LEVOTHYROXINE SODIUM 100 MCG TAB PO SCH (06:36)
[2016-12-05] MEDS: NS + KCL 20 MEQ INJ 1,000 ML IV SCH (08:45)
[2016-12-05] MEDS: SODIUM CHLORIDE 0.9% FLUSH 10 ML FLUSH IV FLUSH SCH ×2 (08:45→19:40)
[2016-12-05] MEDS: SULFAMETHOXAZOLE-TRIMETHOPRIM DS 800-160 MG TAB PO SCH ×2 (08:45→19:40)
[2016-12-05] MEDS: DOCUSATE SODIUM 50 MG/SENNA 8.6 MG TAB PO SCH ×2 (08:45→19:40)
[2016-12-05] MEDS: METOPROLOL TARTRATE 5 MG/5 ML VIAL IV PUSH PRN ×2 (11:10→21:56)
[2016-12-05 16:02] LABS: INTERNATIONAL NORMALIZED RATIO 1.3 RATIO; PROTHROMBIN TIME - PATIENT 14.2 SEC (9.8-11.6)
[2016-12-05] MEDS: DILTIAZEM HCL 30 MG TAB PO SCH ×2 (16:02→19:40)
[2016-12-05] MEDS: WARFARIN SOD 5 MG TAB PO SCH (16:02)
[2016-12-05] MEDS ORDERED: WARFARIN SOD 2.5 MG TAB PO ONE (16:30)
--- NOTE | 2016-12-05 17:27 | HHI.PR ---
Subjective Interval History Alert, oriented 2, denies complaints other than some itching in the arms and legs, no trouble breathing, no chest pain, still on IV Cardizem, after have 2 doses of IV Lopressor for tachycardia control Review of Systems Constitutional Constitutional Remarks 10 systems review is otherwise negative Vitals/Results Intake & Output 12/04/16 12/04/16 12/05/16 15:00 23:00 07:00 Intake Total 985 ml 551 ml 100 ml Output Total 1400 ml 400 ml 1400 ml Balance -415 ml 151 ml -1300 ml Intake Oral 600 ml 200 ml 100 ml IV Total 385 ml 351 ml 0 ml Output Urine Total 1400 ml 400 ml 1400 ml # Bowel Movements 0 0 Vital Signs Vital Signs Date Time Temp Pulse Resp B/P Pulse Ox O2 Delivery O2 Flow Rate FiO2 12/05/16 16:34 98.0 110 20 134/85 98 12/05/16 16:00 108 12/05/16 14:00 62 12/05/16 12:00 108 12/05/16 12:00 98.0 110 20 134/88 98 12/05/16 10:00 62 12/05/16 08:00 98.0 66 20 153/66 98 12/05/16 08:00 108 12/05/16 06:00 62 12/05/16 04:00 98.6 108 22 135/79 99 12/05/16 04:00 108 12/05/16 02:00 72 12/05/16 00:00 68 12/05/16 00:00 98.3 68 18 128/66 98 12/04/16 22:00 67 12/04/16 20:00 98.1 68 16 131/60 97 12/04/16 20:00 68 12/04/16 18:00 142 23 106/78 97 12/04/16 18:00 136 CBC/BMP: 12/04/16 0559 12/04/16 2965 Lab Results Laboratory Tests Test 12/04/16 12/05/16 21:45 14:55 Potassium Level 4.2 MEQ/L Phosphorus Level 3.8 MG/DL Prothrombin Time 14.2 SEC Prothromb Time International 1.3 RATIO Ratio Physical Exam General General Appearance: Well Developed, Anxious Eyes Eye Exam: Pupils Reactive Ears & Nose Ears & Nose Exam: Nasal Mucosa [place] Throat Throat Exam: Oral Mucosa [place] & Moist Neck Neck Exam: Trachea Midline Pulmonary Resp Exam: Breath Sounds Equal Cardiology CV Exam: Normal Sinus Rhythm, Good Perfusion Gastrointestinal/Abdomen GI Exam: Non-Tender, Bowel Sounds Present Musculoskeletal MS Exam: Normal Tone Integumentary Skin Exam: Warm, Dry Neurologic Neuro Exam: Awake, Speech Clear, Moving All Extremities Neuro Remarks Mildly confused Assessment/Plan Assessment/Plan Assessment Tachycardia, relatively better controlled today Symptomatic bradycardia on admission, resolved Hypotension, improved Hypoglycemia, improved Hyponatremia Uncontrolled severe hypothyroidism, now affecting her oral thyroxine replacement Acute metabolic encephalopathy on admission, improved Hypocalcemia, replaced Hypophosphatemia, replaced Management Small dose Cardizem restarted, titrate IV Cardizem down to discontinue Hydrocortisone 1% screen forearms and legs Continue telemetry Discussed with Cardiology Follow electrolytes and Replace as indicated DNR Discussed with patient Discussed with nurse 35 minutes Fady Browne MD Dec 05, 2016 17:27
--- NOTE | 2016-12-05 17:46 | PD.CARD.PN ---
Subjective Subjective Remarks No CP or SOB, rate now increased Objective Medications Current Medications Medications (Trade) Dose Ordered Sig/Alisha Route Start Time Stop Time Status Last Admin (Bactrim Ds 800-160 Mg) 1 tab BID PO 12/02/16 09:00 12/05/16 08:45 (Coumadin) 5 mg DAILY@16 PO 12/02/16 16:00 12/05/16 16:02 (NS Flush) 2 ml UNSCH PRN IV FLUSH 12/01/16 22:45 (NS Flush) 2 ml BID IV FLUSH 12/02/16 09:00 12/05/16 08:45 (Narcan Inj) 0.4 mg UNSCH PRN IV 12/01/16 22:45 (Aida-Colace) 1 tab BID PO 12/02/16 09:00 12/05/16 08:45 (Milk Of Magnesia Liq) 30 ml Q12H PRN PO 12/01/16 22:45 (Senokot) 17.2 mg Q12H PRN PO 12/01/16 22:45 (Dulcolax Supp) 10 mg DAILY PRN RECTAL 12/01/16 22:45 (Lactulose Liq) 30 ml DAILY PRN PO 12/01/16 22:45 (D50w (Vial) Inj) 25 ml UNSCH PRN IV PUSH 12/02/16 00:45 (Glucagon Inj) 1 mg UNSCH PRN OTHER 12/02/16 00:45 (Synthroid) 150 mcg DAILY@07 PO 12/02/16 07:00 12/05/16 06:36 (Haldol Inj) 2 mg Q3HR PRN IM 12/02/16 10:15 12/02/16 23:59 (Ativan Inj) 0.5 mg Q4H PRN IV PUSH 12/02/16 10:30 12/02/16 14:28 Miscellaneous Information Patient in critical care unit? Ass... Q361D .XX 12/02/16 20:45 12/02/16 20:45 (Chlorhexidine 2% Cloth) 3 pack DAILY@04 TOPICAL 12/03/16 04:00 12/07/16 04:01 12/05/16 02:36 Chlorhexidine Gluconate 3 pack 3 pack UNSCH PRN TOPICAL 12/02/16 20:45 12/07/16 20:37 (NS + KCl 20 Meq Inj) 1,000 ml @ 42 mls/hr [id number] IV 12/04/16 09:00 12/05/16 08:45 Metoprolol Tartrate 2.5 mg 2.5 mg Q4H PRN IV PUSH 12/04/16 14:45 12/05/16 11:10 Diltiazem HCl 125 mg/Sodium Chloride 125 ml @ 0 mls/hr TITRATE IV 12/04/16 18:45 (Coumadin Consult Pharmacy) 0 ml @ 0 mls/hr UNSCH OTHER 12/05/16 12:00 (Cardizem) 30 mg QID PO 12/05/16 18:00 12/05/16 16:02 (Hydrocortisone 1% Lotion) 1 applic BID TOPICAL 12/05/16 21:00 UNV Vital Signs / I&O Vital Signs Date Time Temp Pulse Resp B/P Pulse Ox O2 Delivery O2 Flow Rate FiO2 12/05/16 16:34 98.0 110 20 134/85 98 12/05/16 16:00 108 12/05/16 14:00 62 12/05/16 12:00 108 12/05/16 12:00 98.0 110 20 134/88 98 12/05/16 10:00 62 12/05/16 08:00 98.0 66 20 153/66 98 12/05/16 08:00 108 12/05/16 06:00 62 12/05/16 04:00 98.6 108 22 135/79 99 12/05/16 04:00 108 12/05/16 02:00 72 12/05/16 00:00 68 12/05/16 00:00 98.3 68 18 128/66 98 12/04/16 22:00 67 12/04/16 20:00 98.1 68 16 131/60 97 12/04/16 20:00 68 12/04/16 18:00 142 23 106/78 97 12/04/16 18:00 136 I/O 12/04/16 12/04/16 12/04/16 12/05/16 12/05/16 12/05/16 06:59 14:59 22:59 06:59 14:59 22:59 Intake Total 692 ml 985 ml 551 ml 100 ml 440 ml Output Total 700 ml 1400 ml 400 ml 1400 ml 1700 ml Balance -8 ml -415 ml 151 ml -1300 ml -1260 ml Intake Oral 240 ml 600 ml 200 ml 100 ml 240 ml IV Total 452 ml 385 ml 351 ml 0 ml 200 ml Output Urine Total 700 ml 1400 ml 400 ml 1400 ml 1700 ml # Bowel Movements 0 0 0 Physical Exam GENERAL: In NAD SKIN: Warm and dry. HEAD: Normocephalic. EYES: No scleral icterus. No injection or drainage. NECK: Supple, trachea midline. No JVD or lymphadenopathy. CARDIOVASCULAR: Irregular rate and rhythm without murmurs, gallops, or rubs. RESPIRATORY: Breath sounds equal bilaterally. No accessory muscle use. GASTROINTESTINAL: Abdomen soft, non-tender, nondistended. MUSCULOSKELETAL: No cyanosis, or edema, indurated skin of LE. Laboratory Laboratory Tests Test 12/04/16 12/05/16 21:45 14:55 Potassium Level 4.2 MEQ/L Phosphorus Level 3.8 MG/DL Prothrombin Time 14.2 SEC Prothromb Time International 1.3 RATIO Ratio Imaging Last Impressions Head CT 12/01/161920 Signed Impressions: Service Date/Time: Thursday, December 01, 2016 21:16 - CONCLUSION: Negative for an acute process. Arik Ly MD FACR Chest X-Ray 12/01/161920 Signed Impressions: Service Date/Time: Thursday, December 01, 2016 19:18 - CONCLUSION: No acute disease. Arik Ly MD FACR Abdomen/Pelvis CT 12/01/161920 Signed Impressions: Service Date/Time: Thursday, December 01, 2016 21:21 - CONCLUSION: Examination is severely limited bilateral body fat and habitus. There is no free air there is no abnormal mass. Pneumatocele fracture. I do not see etiology for the severe abdominal pain. Arik Ly MD FACR Assessment and Plan Problem List: (1) Bradycardia, drug induced (2) Atrial fibrillation with RVR (3) Altered mental status (4) Tobacco abuse (5) Bladder cancer (6) Anxiety (7) Delirium due to another medical condition Assessment and Plan No angina or CHF. In chronic AF, VR now increased. Titrate diltiazem PO for rate control. Continue monitoring. Increase activity, PT. Problem Qualifiers (1) Altered mental status: Qualified Code: R41.0 - Delirium Jania Fay MD Dec 05, 2016 17:46
[2016-12-05] MEDS: HYDROCORTISONE 1% LOTN 120 ML BTL TOPICAL SCH (21:00)
[2016-12-05] MEDS ORDERED: HYDROCORTISONE 1% CREAM 30 GM TOPICAL ONE (22:00)
[2016-12-06] VITALS (12 sets, daily range): BP systolic 115–132; BP diastolic 58–75; PULSE 64–118; RESP 15–24; TEMP 97.7–98.6; O2SAT 95–98
[2016-12-06] MEDS: CHLORHEXIDINE GLUCONATE 2 % 1 PACK (2 CLOTHS)(taper/protocol) TOPICAL SCH (00:18)
[2016-12-06 05:58] LABS: AUTOMATED NEUTROPHIL # 3.8 TH/MM3 (1.8-7.7); BASOPHIL # 0.1 TH/MM3 (0-0.2); EOSINOPHIL # 0.3 TH/MM3 (0-0.4); EOSINOPHIL % 5.1 % (0.0-4.0); HEMATOCRIT 37.6 % (35.0-46.0); LYMPH % 15.8 % (9.0-44.0); MEAN CELL VOLUME 91.4 FL (80.0-100.0); MEAN CORPUSCULAR HEMOGLOBIN 30.9 PG (27.0-34.0); MEAN CORPUSCULAR HGB CONC 33.8 % (32.0-36.0); NEUT % 63.1 % (16.0-70.0); PLATELET COUNT 257 TH/MM3 (150-450); RED BLOOD COUNT 4.11 MIL/MM3 (4.00-5.30); RED CELL DISTRIBUTION WIDTH 18.2 % (11.6-17.2)
[2016-12-06] MEDS: LEVOTHYROXINE SODIUM 100 MCG TAB PO SCH (06:03)
[2016-12-06] MEDS: LOW DOSE INSULIN NOVOLOG SUPPLEMENTAL SCALE SQ SCH ×4 (06:04→20:19)
[2016-12-06 06:05] LABS: INTERNATIONAL NORMALIZED RATIO 1.4 RATIO; PROTHROMBIN TIME - PATIENT 15.2 SEC (9.8-11.6)
[2016-12-06 06:40] LABS: HEMO FLAGS DIFF FINAL
[2016-12-06 06:58] LABS: INDIRECT BILIRUBIN 0.2 MG/DL (0.0-0.8); MAGNESIUM 2.2 MG/DL (1.5-2.5); POTASSIUM 4.3 MEQ/L (3.5-5.1); TOTAL BILIRUBIN ADULT 0.3 MG/DL (0.2-1.0)
[2016-12-06] MEDS: SULFAMETHOXAZOLE-TRIMETHOPRIM DS 800-160 MG TAB PO SCH ×2 (08:47→20:19)
[2016-12-06] MEDS: DOCUSATE SODIUM 50 MG/SENNA 8.6 MG TAB PO SCH ×2 (08:47→20:19)
[2016-12-06] MEDS: DILTIAZEM HCL 30 MG TAB PO SCH ×4 (08:47→20:19)
[2016-12-06] MEDS: HYDROCORTISONE 1% LOTN 120 ML BTL TOPICAL SCH ×2 (08:48→20:19)
[2016-12-06] MEDS: SODIUM CHLORIDE 0.9% FLUSH 10 ML FLUSH IV FLUSH SCH ×2 (08:48→20:19)
[2016-12-06] MEDS: NS + KCL 20 MEQ INJ 1,000 ML IV SCH (11:05)
[2016-12-06] MEDS: METOPROLOL TARTRATE 5 MG/5 ML VIAL IV PUSH PRN (11:05)
[2016-12-06] MEDS: SODIUM CHLOR 0.9% 1000 ML INJ 1,000 ML IV SCH (13:45)
--- NOTE | 2016-12-06 17:09 | HHI.PR ---
Subjective Interval History Alert, Orientedx2 , but still confused, wants to go home, less itching, using 1 % hydrocortisone cream on arms and legs Review of Systems Constitutional Constitutional Remarks 10 systems review is otherwise negative Vitals/Results Intake & Output 12/05/16 12/05/16 12/06/16 14:59 22:59 06:59 Intake Total 640 ml 171 ml Output Total 2900 ml 1000 ml Balance -2260 ml -829 ml Intake Oral 440 ml 100 ml IV Total 200 ml 71 ml Output Urine Total 2900 ml 1000 ml # Bowel Movements 0 0 Vital Signs Vital Signs Date Time Temp Pulse Resp B/P Pulse Ox O2 Delivery O2 Flow Rate FiO2 12/06/16 16:00 84 12/06/16 16:00 98.5 84 22 132/69 97 12/06/16 14:00 105 12/06/16 12:00 99 12/06/16 12:00 98.6 99 20 123/75 95 12/06/16 10:00 118 12/06/16 08:00 67 12/06/16 08:00 98.5 67 15 125/60 97 12/06/16 06:00 97 12/06/16 04:00 98.3 84 24 117/67 97 12/06/16 04:00 84 12/06/16 02:00 65 12/06/16 00:00 98.2 64 20 115/58 95 12/06/16 00:00 64 12/05/16 22:00 133 12/05/16 20:00 107 12/05/16 20:00 98.2 107 22 146/78 97 12/05/16 18:25 130 CBC/BMP: 12/06/16 0436 12/06/16 0436 Lab Results Laboratory Tests Test 12/06/16 04:36 White Blood Count 6.0 TH/MM3 Red Blood Count 4.11 MIL/MM3 Hemoglobin 12.7 GM/DL Hematocrit 37.6 % Mean Corpuscular Volume 91.4 FL Mean Corpuscular Hemoglobin 30.9 PG Mean Corpuscular Hemoglobin 33.8 % Concent Red Cell Distribution Width 18.2 % Platelet Count 257 TH/MM3 Mean Platelet Volume 8.9 FL Neutrophils (%) (Auto) 63.1 % Lymphocytes (%) (Auto) 15.8 % Monocytes (%) (Auto) 14.0 % Eosinophils (%) (Auto) 5.1 % Basophils (%) (Auto) 2.0 % Neutrophils # (Auto) 3.8 TH/MM3 Lymphocytes # (Auto) 1.0 TH/MM3 Monocytes # (Auto) 0.8 TH/MM3 Eosinophils # (Auto) 0.3 TH/MM3 Basophils # (Auto) 0.1 TH/MM3 CBC Comment DIFF FINAL Differential Comment Prothrombin Time 15.2 SEC Prothromb Time International 1.4 RATIO Ratio Sodium Level 128 MEQ/L Potassium Level 4.3 MEQ/L Chloride Level 94 MEQ/L Carbon Dioxide Level 25.0 MEQ/L Anion Gap 9 MEQ/L Blood Urea Nitrogen 21 MG/DL Creatinine 0.80 MG/DL Estimat Glomerular Filtration 70 ML/MIN Rate Random Glucose 77 MG/DL Calcium Level 9.9 MG/DL Phosphorus Level 4.5 MG/DL Magnesium Level 2.2 MG/DL Total Bilirubin 0.3 MG/DL Direct Bilirubin 0.1 MG/DL Indirect Bilirubin 0.2 MG/DL Aspartate Amino Transf 105 U/L (AST/SGOT) Alanine Aminotransferase 87 U/L (ALT/SGPT) Alkaline Phosphatase 138 U/L Total Protein 8.0 GM/DL Albumin 3.9 GM/DL Physical Exam General General Appearance: Well Developed, Anxious Eyes Eye Exam: Pupils Reactive Ears & Nose Ears & Nose Exam: Nasal Mucosa [place] Throat Throat Exam: Oral Mucosa [place] & Moist Neck Neck Exam: Trachea Midline Pulmonary Resp Exam: Breath Sounds Equal Cardiology CV Exam: Normal Sinus Rhythm, Good Perfusion Gastrointestinal/Abdomen GI Exam: Non-Tender, Bowel Sounds Present Musculoskeletal MS Exam: Normal Tone Integumentary Skin Exam: Warm, Dry Neurologic Neuro Exam: Awake, Speech Clear, Moving All Extremities Neuro Remarks Mildly confused Assessment/Plan Assessment/Plan Assessment Tachycardia, variable IV Cardizem drip has been discontinued Symptomatic bradycardia on admission, resolved Hypotension, improved Hypoglycemia, improved Hyponatremia Uncontrolled severe hypothyroidism, now affecting her oral thyroxine replacement Acute metabolic encephalopathy on admission, improved Hypocalcemia, replaced Hypophosphatemia, replaced Management Increase oral dose Cardizem slowly Hydrocortisone 1% screen forearms and legs Continue telemetry Follow electrolytes and Replace as indicated DNR Discussed with patient Discussed with nurse 35 minutes Fady Browne MD Dec 06, 2016 17:09
[2016-12-06] MEDS: WARFARIN SOD 6 MG TAB PO SCH (17:12)
[2016-12-07] VITALS (12 sets, daily range): BP systolic 103–137; BP diastolic 55–99; PULSE 58–152; RESP 11–40; TEMP 97.4–98.3; O2SAT 94–99
[2016-12-07] MEDS: CHLORHEXIDINE GLUCONATE 2 % 1 PACK (2 CLOTHS)(taper/protocol) TOPICAL SCH (04:00)
[2016-12-07 05:30] LABS: INTERNATIONAL NORMALIZED RATIO 1.6 RATIO; PROTHROMBIN TIME - PATIENT 18.4 SEC (9.8-11.6)
[2016-12-07] MEDS: LEVOTHYROXINE SODIUM 100 MCG TAB PO SCH (06:04)
[2016-12-07] MEDS: LOW DOSE INSULIN NOVOLOG SUPPLEMENTAL SCALE SQ SCH ×4 (06:05→21:00)
[2016-12-07] MEDS: SULFAMETHOXAZOLE-TRIMETHOPRIM DS 800-160 MG TAB PO SCH ×2 (08:09→21:16)
[2016-12-07] MEDS: DOCUSATE SODIUM 50 MG/SENNA 8.6 MG TAB PO SCH ×2 (08:09→21:16)
[2016-12-07] MEDS: HYDROCORTISONE 1% LOTN 120 ML BTL TOPICAL SCH ×2 (08:10→21:00)
[2016-12-07] MEDS: SODIUM CHLORIDE 0.9% FLUSH 10 ML FLUSH IV FLUSH SCH ×2 (08:10→21:00)
[2016-12-07] MEDS: DILTIAZEM HCL 30 MG TAB PO SCH ×4 (08:10→21:16)
[2016-12-07] MEDS: SODIUM CHLOR 0.9% 1000 ML INJ 1,000 ML IV SCH (09:45)
--- NOTE | 2016-12-07 16:34 | HHI.PR ---
Subjective Interval History Alert, oriented, mildly confused, wants to go home, does not have any insight into her medical condition despite extensive explanations Review of Systems Constitutional Constitutional Remarks 10 systems review is otherwise negative Vitals/Results Intake & Output 12/06/16 12/06/16 12/07/16 15:00 23:00 07:00 Intake Total 1147 ml 816 ml 489 ml Output Total 800 ml 1200 ml 1450 ml Balance 347 ml -384 ml -961 ml Intake Oral 960 ml 600 ml 480 ml IV Total 187 ml 216 ml 9 ml Output Urine Total 800 ml 1200 ml 1450 ml # Bowel Movements 0 0 0 Vital Signs Vital Signs Date Time Temp Pulse Resp B/P Pulse Ox O2 Delivery O2 Flow Rate FiO2 12/07/16 14:00 109 12/07/16 12:00 97.6 68 18 137/99 95 12/07/16 12:00 68 12/07/16 10:00 67 12/07/16 08:00 76 12/07/16 08:00 97.4 76 14 135/80 99 12/07/16 06:00 69 12/07/16 04:00 64 12/07/16 04:00 98.2 12/07/16 04:00 98.2 64 24 130/61 97 12/07/16 02:00 61 12/07/16 00:00 58 12/07/16 00:00 97.9 58 40 103/55 94 12/06/16 22:00 70 12/06/16 20:00 72 12/06/16 20:00 97.7 72 18 122/63 98 12/06/16 18:00 79 CBC/BMP: 12/06/16 0436 12/06/16 0436 Lab Results Laboratory Tests Test 12/07/16 04:38 Prothrombin Time 18.4 SEC Prothromb Time International 1.6 RATIO Ratio Physical Exam General General Appearance: Well Developed, Anxious Eyes Eye Exam: Pupils Reactive Ears & Nose Ears & Nose Exam: Nasal Mucosa [place] Throat Throat Exam: Oral Mucosa [place] & Moist Neck Neck Exam: Trachea Midline Pulmonary Resp Exam: Breath Sounds Equal Cardiology CV Exam: Normal Sinus Rhythm, Good Perfusion Gastrointestinal/Abdomen GI Exam: Non-Tender, Bowel Sounds Present Musculoskeletal MS Exam: Normal Tone Integumentary Skin Exam: Warm, Dry Neurologic Neuro Exam: Awake, Speech Clear, Moving All Extremities Neuro Remarks Mildly confused Assessment/Plan Assessment/Plan Assessment Tachycardia, variable rate, better today IV Cardizem drip has been discontinued Symptomatic bradycardia on admission, resolved Hypotension, improved Hypoglycemia, improved Hyponatremia Uncontrolled severe hypothyroidism, now affecting her oral thyroxine replacement Acute metabolic encephalopathy on admission, improved Hypocalcemia, replaced Hypophosphatemia, replaced Management Continue oral Cardizem Hydrocortisone 1% screen forearms and legs Transferred to telemetry Follow electrolytes and Replace as indicated DNR Discussed with patient Discussed with nurse 35 minutes Fady Browne MD Dec 07, 2016 16:34
[2016-12-07] MEDS: LORazepam 2 MG/ML VIAL IV PUSH PRN (17:09)
[2016-12-07] MEDS: WARFARIN SOD 6 MG TAB PO SCH (17:09)
[2016-12-08] VITALS (33 sets, daily range): BP systolic 81–163; BP diastolic 49–97; PULSE 59–141; RESP 10–37; TEMP 97.4–97.9; O2SAT 87–99
[2016-12-08] MEDS: METOPROLOL TARTRATE 5 MG/5 ML VIAL IV PUSH PRN (03:01)
[2016-12-08] MEDS: LORazepam 2 MG/ML VIAL IV PUSH PRN ×2 (03:43→08:16)
[2016-12-08] MEDS: LOW DOSE INSULIN NOVOLOG SUPPLEMENTAL SCALE SQ SCH ×4 (05:45→21:00)
[2016-12-08] MEDS: SODIUM CHLOR 0.9% 1000 ML INJ 1,000 ML IV SCH (05:45)
[2016-12-08] MEDS: LEVOTHYROXINE SODIUM 100 MCG TAB PO SCH (05:45)
[2016-12-08] MEDS: DILTIAZEM HCL 30 MG TAB PO SCH ×4 (08:15→21:17)
[2016-12-08] MEDS: HYDROCORTISONE 1% LOTN 120 ML BTL TOPICAL SCH ×2 (08:15→21:00)
[2016-12-08] MEDS: DOCUSATE SODIUM 50 MG/SENNA 8.6 MG TAB PO SCH ×2 (08:15→21:17)
[2016-12-08] MEDS: SULFAMETHOXAZOLE-TRIMETHOPRIM DS 800-160 MG TAB PO SCH ×2 (08:15→21:17)
[2016-12-08] MEDS: SODIUM CHLORIDE 0.9% FLUSH 10 ML FLUSH IV FLUSH SCH ×2 (08:15→21:19)
[2016-12-08] MEDS ORDERED: QUEtiapine FUMARATE 100 MG TAB PO ONE (13:00)
[2016-12-08 13:03] LABS: INTERNATIONAL NORMALIZED RATIO 2.4 RATIO; PROTHROMBIN TIME - PATIENT 27.2 SEC (9.8-11.6)
[2016-12-08] MEDS ORDERED: QUEtiapine FUMARATE 25 MG TAB PO ONE (13:15)
[2016-12-08 13:28] LABS: BICARBONATE 21.1 MEQ/L (21.0-32.0); MAGNESIUM 2.2 MG/DL (1.5-2.5); POTASSIUM 4.5 MEQ/L (3.5-5.1)
--- NOTE | 2016-12-08 14:42 | HHI.PR ---
Subjective Interval History Alert, verbal, hit her head on the bedside table today, got out of the bed by herself, oriented 2 but still confused, Review of Systems Constitutional Constitutional Remarks 10 systems review is otherwise negative Vitals/Results Intake & Output 12/07/16 12/07/16 12/08/16 15:00 23:00 07:00 Intake Total 1179 ml 410 ml 802 ml Output Total 950 ml 1250 ml 750 ml Balance 229 ml -840 ml 52 ml Intake Oral 960 ml 480 ml IV Total 219 ml 410 ml 322 ml Output Urine Total 950 ml 1250 ml 750 ml # Bowel Movements 0 0 0 Vital Signs Vital Signs Date Time Temp Pulse Resp B/P Pulse Ox O2 Delivery O2 Flow Rate FiO2 12/08/16 14:01 113 24 163/97 94 12/08/16 13:45 119 23 149/68 87 12/08/16 13:30 128 17 144/70 93 12/08/16 13:16 111 21 158/90 98 12/08/16 13:00 99 15 145/65 96 12/08/16 12:45 70 10 130/60 98 12/08/16 12:35 79 14 143/65 94 12/08/16 12:34 74 20 123/58 94 12/08/16 12:33 88 17 131/63 96 12/08/16 12:32 82 16 127/75 99 12/08/16 12:31 95 17 151/86 95 12/08/16 12:00 114 24 98/63 99 12/08/16 12:00 114 12/08/16 11:00 66 12 125/58 99 12/08/16 10:00 66 12/08/16 10:00 66 15 110/55 98 12/08/16 09:05 94 15 141/67 97 12/08/16 09:02 93 19 151/82 98 12/08/16 08:00 100 12/08/16 08:00 97.4 100 37 140/94 98 12/08/16 07:00 76 20 142/91 96 12/08/16 06:00 137 12/08/16 04:00 97.9 99 19 142/83 96 12/08/16 04:00 99 12/08/16 02:00 92 12/08/16 00:00 78 12/08/16 00:00 97.8 78 12 120/62 97 12/07/16 22:00 64 12/07/16 20:00 97.7 70 11 116/65 96 12/07/16 20:00 70 12/07/16 18:00 110 12/07/16 16:00 98.3 83 16 130/69 97 12/07/16 16:00 83 CBC/BMP: 12/06/16 0436 12/08/16 1237 Lab Results Laboratory Tests Test 12/08/16 12:37 Prothrombin Time 27.2 SEC Prothromb Time International 2.4 RATIO Ratio Sodium Level 126 MEQ/L Potassium Level 4.5 MEQ/L Chloride Level 95 MEQ/L Carbon Dioxide Level 21.1 MEQ/L Anion Gap 10 MEQ/L Blood Urea Nitrogen 13 MG/DL Creatinine 0.70 MG/DL Estimat Glomerular Filtration 81 ML/MIN Rate Random Glucose 64 MG/DL Calcium Level 8.7 MG/DL Phosphorus Level 2.8 MG/DL Magnesium Level 2.2 MG/DL Physical Exam General General Appearance: Well Developed, Anxious Eyes Eye Exam: Pupils Reactive Ears & Nose Ears & Nose Exam: Nasal Mucosa [place] Throat Throat Exam: Oral Mucosa [place] & Moist Neck Neck Exam: Trachea Midline Pulmonary Resp Exam: Breath Sounds Equal Cardiology CV Exam: Normal Sinus Rhythm, Good Perfusion Gastrointestinal/Abdomen GI Exam: Non-Tender, Bowel Sounds Present Musculoskeletal MS Exam: Normal Tone Integumentary Skin Exam: Warm, Dry Neurologic Neuro Exam: Awake, Speech Clear, Moving All Extremities Neuro Remarks Mildly confused Assessment/Plan Assessment/Plan Assessment Hypoglycemia Tachycardia, variable rate, IV Cardizem drip has been discontinued Symptomatic bradycardia on admission, resolved Hypotension, improved Hypoglycemia, improved Hyponatremia Uncontrolled severe hypothyroidism, now affecting her oral thyroxine replacement Acute metabolic encephalopathy on admission, improved Hypocalcemia, replaced Hypophosphatemia, replaced Management 10% dextrose ordered Continue oral Cardizem Hydrocortisone 1% screen forearms and legs I called the patient's sister and left my number for her to call me back I do recommend that the patient goes on hospice at this time She herself does not want any active management, she does not appear to have a capacity to make decisions anyway Will try to speak to the sister for making any further decisions Follow electrolytes and Replace as indicated DNR Discussed with patient Discussed with nurse 35 minutes Fady Browne MD Dec 08, 2016 14:42
--- NOTE | 2016-12-08 15:22 | RADRPT ---
EXAM DATE/TIME: 12/08/2016 15:03 [facility] COMPARISON: CT BRAIN W/O CONTRAST, December 01, 2016, 21:16. INDICATIONS : Altered mental status, hematoma on forehead RADIATION DOSE: 29.44 CTDIvol (mGy) MEDICAL HISTORY : Hypertension. Cardiovascular disease SURGICAL HISTORY : Splenectomy. ENCOUNTER: Initial ACUITY: 1 day PAIN SCALE: 0/10 LOCATION: cranial TECHNIQUE: Multiple contiguous axial images were obtained of the head. Using automated exposure control and adj ustment of the mA and/or kV according to patient size, radiation dose was kept as low as reasonably a chievable to obtain optimal diagnostic quality images. DICOM format image data is available electro nically for review and comparison. FINDINGS: CEREBRUM: Scattered areas of low attenuation throughout the white matter. 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 Th e ventricles are normal for age. No evidence of midline shift, mass lesion, hemorrhage or acute infa rction. No extra-axial fluid collections are seen. POSTERIOR FOSSA: The cerebellum and brainstem are intact. The 4th ventricle is midline. The cerebellopontine angle i s unremarkable. EXTRACRANIAL: The visualized portion of the orbits is intact. Right frontal soft tissue contusion. SKULL: The calvaria is intact. No evidence of skull fracture. CONCLUSION: 1. No acute hemorrhage. 2. Chronic ischemic changes. 3. Right frontal soft tissue contusion. Yanvi Lomax MD on December 08, 2016 at 15:20 Board Certified Radiologist. This report was verified electronically.
[2016-12-08] MEDS ORDERED: WARFARIN SOD 4 MG TAB PO SCH (16:00)
[2016-12-08] MEDS ORDERED: WARFARIN SOD 3 MG TAB PO SCH (16:00)
[2016-12-08] MEDS ORDERED: SODIUM CHLORIDE 23.4% INJ 154 MEQ in DEXTROSE 10% INJ 1,000 ML IV SCH (17:00)
[2016-12-08] MEDS ORDERED: QUEtiapine FUMARATE 25 MG TAB PO SCH (21:00)
--- NOTE | 2016-12-08 21:23 | PD.CARD.PN ---
Subjective Subjective Remarks No CP or excessive SOB, refusing care, fell and hit her head earlier Objective Medications Current Medications Medications (Trade) Dose Ordered Sig/Alisha Route Start Time Stop Time Status Last Admin (Bactrim Ds 800-160 Mg) 1 tab BID PO 12/02/16 09:00 12/08/16 21:17 (NS Flush) 2 ml UNSCH PRN IV FLUSH 12/01/16 22:45 (NS Flush) 2 ml BID IV FLUSH 12/02/16 09:00 12/08/16 21:19 (Narcan Inj) 0.4 mg UNSCH PRN IV 12/01/16 22:45 (Aida-Colace) 1 tab BID PO 12/02/16 09:00 12/08/16 21:17 (Milk Of Magnesia Liq) 30 ml Q12H PRN PO 12/01/16 22:45 (Senokot) 17.2 mg Q12H PRN PO 12/01/16 22:45 (Dulcolax Supp) 10 mg DAILY PRN RECTAL 12/01/16 22:45 (Lactulose Liq) 30 ml DAILY PRN PO 12/01/16 22:45 (D50w (Vial) Inj) 25 ml UNSCH PRN IV PUSH 12/02/16 00:45 (Glucagon Inj) 1 mg UNSCH PRN OTHER 12/02/16 00:45 (Synthroid) 150 mcg DAILY@07 PO 12/02/16 07:00 12/08/16 05:45 (Haldol Inj) 2 mg Q3HR PRN IM 12/02/16 10:15 12/02/16 23:59 (Ativan Inj) 0.5 mg Q4H PRN IV PUSH 12/02/16 10:30 12/08/16 08:16 Miscellaneous Information Patient in critical care unit? Ass... Q361D .XX 12/02/16 20:45 12/02/16 20:45 Metoprolol Tartrate 2.5 mg 2.5 mg Q4H PRN IV PUSH 12/04/16 14:45 12/08/16 03:01 Diltiazem HCl 125 mg/Sodium Chloride 125 ml @ 0 mls/hr TITRATE IV 12/04/16 18:45 (Coumadin Consult Pharmacy) 0 ml @ 0 mls/hr UNSCH OTHER 12/05/16 12:00 (Cardizem) 30 mg QID PO 12/05/16 18:00 12/08/16 21:17 (Hydrocortisone 1% Lotion) 1 applic BID TOPICAL 12/05/16 21:00 12/08/16 21:00 (SEROquel) 25 mg HS PO 12/08/16 21:00 12/08/16 21:17 Warfarin Sodium 3 mg 3 mg DAILY@1600 PO 12/08/16 16:00 12/08/16 18:27 (Sodium Chloride 23.4% Inj/D10w Inj) 1,038.5 ml @ 50 mls/hr [id number] IV 12/08/16 17:00 12/08/16 18:25 Vital Signs / I&O Vital Signs Date Time Temp Pulse Resp B/P Pulse Ox O2 Delivery O2 Flow Rate FiO2 12/08/16 18:00 77 12/08/16 16:00 100 13 81/49 97 12/08/16 16:00 100 12/08/16 15:45 95 14 104/57 98 12/08/16 15:15 98 11 95/55 97 12/08/16 15:13 106 13 105/53 98 12/08/16 15:00 141 28 111/60 93 12/08/16 14:30 77 12 106/56 99 12/08/16 14:15 78 10 133/59 99 12/08/16 14:01 113 24 163/97 94 12/08/16 14:00 113 12/08/16 13:45 119 23 149/68 87 12/08/16 13:30 128 17 144/70 93 12/08/16 13:16 111 21 158/90 98 12/08/16 13:00 99 15 145/65 96 12/08/16 12:45 70 10 130/60 98 12/08/16 12:35 79 14 143/65 94 12/08/16 12:34 74 20 123/58 94 12/08/16 12:33 88 17 131/63 96 12/08/16 12:32 82 16 127/75 99 12/08/16 12:31 95 17 151/86 95 12/08/16 12:00 114 24 98/63 99 12/08/16 12:00 114 12/08/16 11:00 66 12 125/58 99 12/08/16 10:00 66 12/08/16 10:00 66 15 110/55 98 12/08/16 09:05 94 15 141/67 97 12/08/16 09:02 93 19 151/82 98 12/08/16 08:00 100 12/08/16 08:00 97.4 100 37 140/94 98 12/08/16 07:00 76 20 142/91 96 12/08/16 06:00 137 12/08/16 04:00 97.9 99 19 142/83 96 12/08/16 04:00 99 12/08/16 02:00 92 12/08/16 00:00 78 12/08/16 00:00 97.8 78 12 120/62 97 12/07/16 22:00 64 I/O 12/07/16 12/07/16 12/07/16 12/08/16 12/08/16 12/08/16 07:00 15:00 23:00 07:00 15:00 23:00 Intake Total 489 ml 1179 ml 410 ml 802 ml 692 ml Output Total 1450 ml 950 ml 1250 ml 750 ml 1225 ml Balance -961 ml 229 ml -840 ml 52 ml -533 ml Intake Oral 480 ml 960 ml 480 ml 280 ml IV Total 9 ml 219 ml 410 ml 322 ml 412 ml Output Urine Total 1450 ml 950 ml 1250 ml 750 ml 1225 ml # Bowel Movements 0 0 0 0 0 Physical Exam GENERAL: In NAD, somnolent SKIN: Warm and dry. HEAD: Normocephalic, large bruise on forehead. EYES: No scleral icterus. No injection or drainage. NECK: Supple, trachea midline. No JVD or lymphadenopathy. CARDIOVASCULAR: Irregular rate and rhythm without murmurs, gallops, or rubs. RESPIRATORY: Breath sounds equal bilaterally. No accessory muscle use. GASTROINTESTINAL: Abdomen soft, non-tender, nondistended. MUSCULOSKELETAL: No cyanosis, or edema, indurated skin of LE. Laboratory Laboratory Tests Test 12/08/16 12:37 Prothrombin Time 27.2 SEC Prothromb Time International 2.4 RATIO Ratio Sodium Level 126 MEQ/L Potassium Level 4.5 MEQ/L Chloride Level 95 MEQ/L Carbon Dioxide Level 21.1 MEQ/L Anion Gap 10 MEQ/L Blood Urea Nitrogen 13 MG/DL Creatinine 0.70 MG/DL Estimat Glomerular Filtration 81 ML/MIN Rate Random Glucose 64 MG/DL Calcium Level 8.7 MG/DL Phosphorus Level 2.8 MG/DL Magnesium Level 2.2 MG/DL Imaging Last Impressions Head CT 12/08/16 0000 Signed Impressions: Service Date/Time: Thursday, December 08, 2016 15:03 - CONCLUSION: 1. No acute hemorrhage. 2. Chronic ischemic changes. 3. Right frontal soft tissue contusion. Yaniv Lomax MD Chest X-Ray 12/01/161920 Signed Impressions: Service Date/Time: Thursday, December 01, 2016 19:18 - CONCLUSION: No acute disease. Arik Ly MD FACR Abdomen/Pelvis CT 12/01/161920 Signed Impressions: Service Date/Time: Thursday, December 01, 2016 21:21 - CONCLUSION: Examination is severely limited bilateral body fat and habitus. There is no free air there is no abnormal mass. Pneumatocele fracture. I do not see etiology for the severe abdominal pain. Arik Ly MD FACR Assessment and Plan Problem List: (1) Bradycardia, drug induced (2) Atrial fibrillation with RVR (3) Altered mental status (4) Tobacco abuse (5) Bladder cancer (6) Anxiety (7) Delirium due to another medical condition Assessment and Plan No angina or CHF. In chronic AF, VR better controlled. Refusing care. Transfer to floor as planned. Hospice consulted. Problem Qualifiers (1) Altered mental status: Qualified Code: R41.0 - Delirium Jania Fay MD Dec 08, 2016 21:23
== END 2016-12-08 23:30 | disposition hospice, inpatient (51) | DRG 643 ==
LOC: NEPC 18:23 → NEDA 22:18 → INTOOBSV 22:18 → NEPFCDU 12-02 01:29 → OBSVTOIN 12-02 17:56 → HIMN 12-02 19:35
PROVIDERS: ADMIT Specialist; ATTEND Specialist
DX: E03.9 Hypothyroidism, unspecified (principal); G93.41 Metabolic encephalopathy; I95.9 Hypotension, unspecified; F05 Delirium due to known physiological condition; R00.1 Bradycardia, unspecified; N39.0 Urinary tract infection, site not specified; E83.51 Hypocalcemia; E83.39 Other disorders of phosphorus metabolism; I48.2 Chronic atrial fibrillation; E87.1 Hypo-osmolality and hyponatremia; F22 Delusional disorders; C67.9 Malignant neoplasm of bladder, unspecified; E16.2 Hypoglycemia, unspecified; I10 Essential (primary) hypertension; F17.210 Nicotine dependence, cigarettes, uncomplicated; Z66 Do not resuscitate; E78.5 Hyperlipidemia, unspecified; M19.90 Unspecified osteoarthritis, unspecified site; F41.9 Anxiety disorder, unspecified; F32.9 Major depressive disorder, single episode, unspecified; Z85.828 Personal history of other malignant neoplasm of skin; Z79.01 Long term (current) use of anticoagulants; Z86.73 Personal history of transient ischemic attack (TIA), and cerebral infarction without residual deficits; R00.0 Tachycardia, unspecified
CPT/HCPCS: 51702; 70450; 71010; 74177; 76937; 80048; 80053; 80076; 80307; 81001; 82140; 82310; 82533; 82550; 82552; 82948; 83690; 83735; 83880; 84100; 84132; 84155; 84439; 84443; 84481; 84484; 85007; 85025; 85027; 85610; 85730; 87641; 93005; G0378; J0610; J1630; J1815; J2060; J3480; J7030; J7040; J7050; P9047; Q9967